=== PATIENT | male | born 1945 | race Two or more races ===

== ENCOUNTER 2018-01-17 20:04 | Inpatient (IN) | payer MEDICARE, OTHER ==
[~2018-01-17] VITALS: Ht 167.6 cm; Wt 71.7 kg
[~2018-01-17 20:04] MED LIST: ASPIR 8181 MG ORAL; ATORVASTATIN CA40 MG ORAL; CYCLOSPORINE100 MG PO; JANUVIA100 MG ORAL; PLAVIX75 MG ORAL; TAMSULOSIN HCL0.4 MG ORAL; ZETIA10 MG ORAL
[2018-01-17] MEDS ORDERED: Sodium Chloride 500ML 500 ML IV ONE (20:15)
[2018-01-17 20:25] VITALS: BP 168/90
[2018-01-17] MEDS ORDERED: LOSARTAN POTASS50 MG ORAL (20:31)
[2018-01-17] MEDS ORDERED: PREDNISONE10 MG ORAL (20:31)
[2018-01-17] MEDS ORDERED: NORCO 10-325 T1 EACH ORAL (20:31)
[2018-01-17] MEDS ORDERED: PANTOPRAZOLE SO40 MG ORAL (20:31)
[2018-01-17] MEDS ORDERED: DIABETIC TUSSI118 ML PO (20:31)
[2018-01-17] MEDS ORDERED: LANTUS SOL100 UNIT/1 SUBQ (20:31)
[2018-01-17] MEDS ORDERED: BENZONATATE100 MG ORAL (20:31)
[2018-01-17] MEDS ORDERED: MAGNESIUM250 M3 PO (20:31)
[2018-01-17] MEDS ORDERED: ISOSORBIDE MON120 M1 PO (20:31)
[2018-01-17] MEDS ORDERED: LASIX20 M1 ORAL (20:31)
[2018-01-17] MEDS ORDERED: ZETIA10 MG ORAL (20:31)
[2018-01-17] MEDS ORDERED: GABAPENTIN600 MG ORAL (20:31)
[2018-01-17] MEDS ORDERED: ALBUTEROL2.5 MG/3 M INH (20:31)
[2018-01-17] MEDS ORDERED: CYCLOSPORINE100 MG PO (20:31)
[2018-01-17] MEDS ORDERED: LINZESS145 MCG PO (20:31)
[2018-01-17] MEDS ORDERED: FLUDROCORTISON0.1 MG PO (20:31)
[2018-01-17 21:13] LABS: APPEARANCE,URINE CLEAR; BILIRUBIN, URINE NEGATIVE (NEGATIVE); COLOR,URINE PALE YELLOW; GLUCOSE, URINE (UA) 2+ (NEGATIVE); KETONES,URINE NEGATIVE (NEGATIVE); LEUKOCYTE ESTERASE ,URINE NEGATIVE (NEGATIVE); NITRITE,URINE NEGATIVE (NEGATIVE); PH,URINE 8 (4.5-8.0); PROTEIN,URINE 3+ (NEGATIVE); UROBILINOGEN,URINE NORMAL MG/DL (0.0-1.0)
[2018-01-17 21:17] LABS: BASOPHILS % (AUTO) 0.7 % (0.0-2.0); EOSINOPHILS % (AUTO) 1.6 % (0.0-3.0); HEMATOCRIT 34.9 % (42.0-52.0); HEMOGLOBIN 12.4 G/DL (14.2-18.0); LYMPHOCYTES % (AUTO) 12.7 % (20.0-45.0); MEAN CORPUSCULAR VOLUME 88 FL (80-99); MONOCYTES % (AUTO) 7.9 % (1.0-10.0); PLATELET COUNT 209 K/UL (150-450); RED BLOOD COUNT 3.99 M/UL (4.70-6.10); RED CELL DISTRIBUTION WIDTH 12.6 % (11.6-14.8); WHITE BLOOD COUNT 11.3 K/UL (4.8-10.8)
[2018-01-17 21:25] VITALS: BP 168/92
[2018-01-17 21:50] LABS: ANION GAP 6 mmol/L (5-15); BLOOD UREA NITROGEN 50 mg/dL (7-18); CALCIUM 9.5 MG/DL (8.5-10.1); CARBON DIOXIDE 31 MMOL/L (21-32); CHLORIDE 103 MMOL/L (98-107); POTASSIUM 3.8 MMOL/L (3.5-5.1); SODIUM 140 MMOL/L (136-145)
[2018-01-17 22:04] LABS: ALANINE AMINOTRANSFERASE 54 U/L (12-78); ALBUMIN 3.2 G/DL (3.4-5.0); ALBUMIN/GLOBULIN RATIO 0.8 (1.0-2.7); ALKALINE PHOSPHATASE 75 U/L (46-116); ASPARTATE AMINO TRANSFERASE 60 U/L (15-37); BILIRUBIN,TOTAL 0.5 MG/DL (0.2-1.0); CKMB 4.6 NG/ML (0.0-3.6); CREATINE KINASE 1547 U/L (26-308)
[2018-01-17 22:25] VITALS: BP 178/95
[2018-01-17] MEDS ORDERED: Benzonatate 100mg Perles ORAL PRN (22:30)
[2018-01-17] MEDS ORDERED: Morphine Sulfate 2mg/ml Inj IVP PRN (22:30)
[2018-01-17] MEDS ORDERED: Morphine Sulfate 4mg/ml Inj IVP PRN (22:30)
[2018-01-17] MEDS ORDERED: Nitroglycerin Subl 0.4mg tab SL PRN (22:30)
[2018-01-17] MEDS ORDERED: Albuterol/Ipratropium 3ml neb HHN PRN (22:30)
[2018-01-17] MEDS ORDERED: Miralax 17gm pkt ORAL PRN (22:30)
[2018-01-17] MEDS ORDERED: Acetaminophen 650 MG SUPP RECTAL PRN ×2 (22:30)
--- NOTE | 2018-01-17 22:33 | Emergency Room Report ---
History of Present Illness General Chief Complaint: Altered Level of Consciousness Source: Patient, Family Member Present Illness HPI 72-year-old male presents ED for evaluation. Daughter at bedside states that patient is more confused than usual since this morning. History of dementia. Daughter is also concerned this patient has a cough which is productive. Afebrile. Patient is also status post recent stent placement at [facility]. History of CVA. History of frequent UTI. Patient is unable to provide any additional history at this time. No other aggravating or relieving factors. Denies any other associated symptoms Allergies: Coded Allergies: AZATHIOPRINE (Verified Allergy, Unknown, 11/20/10) Patient History Past Medical History: DM, MO, CVA/TIA, dementia Past Surgical History: none Pertinent Family History: none Social History: Denies: smoking, alcohol use, drug use Immunizations: UTD Reviewed Nursing Documentation: PMH: Agreed, PSxH: Agreed Nursing Documentation-PMH Hx Cardiac Problems: Yes - CAD, 2 STENTS Hx Hypertension: Yes - MO Hx Asthma: No - BPH Hx Diabetes: Yes Review of Systems All Other Systems: limited Physical Exam Vital Signs Date Time Temp Pulse Resp B/P (MAP) Pulse Ox O2 Delivery O2 Flow Rate FiO2 01/17/18 20:12 98.0 87 18 171/91 96 Room Air 98.1 Sp02 EP Interpretation: reviewed, normal General Appearance: other - dementia Head: normocephalic Eyes: bilateral eye normal inspection, bilateral eye PERRL ENT: normal ENT inspection Neck: normal inspection Respiratory: crackles Cardiovascular #1: regular rate, rhythm, no edema Gastrointestinal: normal bowel sounds, non tender, soft, non-distended, no guarding, no rebound Rectal: deferred Genitourinary: no CVA tenderness Musculoskeletal: normal inspection Neurologic: other - dementia Psychiatric: other - dementia Skin: normal inspection Lymphatic: normal inspection Procedures Critical Care Time Critical Care Time i. I feel this is a highly complex case requiring extensive working including EKG/Rhythm strip, Xray/CT/US, Blood/urine lab work, repeat exams while in ED, and administration of strong opiates/narcotics for pain control, admission to hospital or close patient follow up. Total time: 30 min bedside evaluation and treatment excludes procedures (EKG). Reason for critical care: Elevated troponin, rhabdo, sepsis, dehydration, subacute CVA Possible complications: hypotension, hypertension, MO, shock, arrhythmias, metabolic acidosis, end organ damage, respiratory failure. Interventions: labs, IVFs, EKG, CXR, CT. abx. aspirin. IVFs Course: Patient presents with AMS. CT head shows subacute CVA frontal lobe. lactate > 2, CK > 1500, trop 0.065. no chest pain. CXR shows ? pneumonia. given IVFS. given abx. Given aspirin Consultations: nursing staff, EMS, family Performed by: Dr Townsend Tolerated well condition = serious j. because of unstable vital signs this patient had a condition that could potentially threaten life or limb. I feel this is a critical patient who required my full attention while patient was considered critical. Total Critical Care Time excluding procedures was greater than 35 minutes Medical Decision Making Diagnostic Impression: Primary Impression: CVA (cerebral vascular accident) Qualified Codes: I63.9 - Cerebral infarction, unspecified Additional Impressions: Sepsis Qualified Codes: A41.9 - Sepsis, unspecified organism Dehydration Pneumonia Qualified Codes: J18.1 - Lobar pneumonia, unspecified organism Rhabdomyolysis Qualified Codes: M62.82 - Rhabdomyolysis Elevated troponin ER Course Hospital Course 72-year-old male presents ED with increased confusion, coughing congestion Differential diagnoses include: MO/unstable angina, SVT/Vtach/AFib, CVA/TIA Clinical course Patient placed on stretcher. on campus monitor. After initial history and physical I ordered labs, EKG, chest x-ray, and CT head labs reviewed- BUN/Cr 50/2, troponins 0.065, CK > 1500, noted leukocytosis, Hb/ Hct stable, lactate > 2 Chest x-ray- RLL atelectasis/infiltrate EKg - NSR, no acute ischemic changes interpreted by me CT brain - hypodesnity in frontal lobe suggestive of subacute CVA discussed case with PMD Loy Munoz Given aspirin in ED. given IVFs. Given abx no focal neurological deficits. patietn is out of window for thrombolytic therapy Case discussed with Dr. David and he agreed to accept the patient to his service for further care and support I. I feel this is a highly complex case requiring extensive working including EKG/Rhythm strip, Xray/CT/US, Blood/urine lab work, repeat exams while in ED, and administration of strong opiates/narcotics for pain control, admission to hospital or close patient follow up. Diagnosis - CVA, sepsis, dehydration, pneumonia, rhabdo, elevated troponin admitted to telemetry in serious condition Labs Test 01/17/18 20:30 White Blood Count 11.3 K/UL (4.8-10.8) Red Blood Count 3.99 M/UL (4.70-6.10) Hemoglobin 12.4 G/DL (14.2-18.0) Hematocrit 34.9 % (42.0-52.0) Mean Corpuscular Volume 88 FL (80-99) Mean Corpuscular Hemoglobin 31.2 PG (27.0-31.0) Mean Corpuscular Hemoglobin Concent 35.6 G/DL (32.0-36.0) Red Cell Distribution Width 12.6 % (11.6-14.8) Platelet Count 209 K/UL (150-450) Mean Platelet Volume 8.0 FL (6.5-10.1) Neutrophils (%) (Auto) 77.0 % (45.0-75.0) Lymphocytes (%) (Auto) 12.7 % (20.0-45.0) Monocytes (%) (Auto) 7.9 % (1.0-10.0) Eosinophils (%) (Auto) 1.6 % (0.0-3.0) Basophils (%) (Auto) 0.7 % (0.0-2.0) Urine Color Pale yellow Urine Appearance Clear Urine pH 8 (4.5-8.0) Urine Specific [place] 1.010 (1.005-1.035) Urine Protein 3+ (NEGATIVE) Urine Glucose (UA) 2+ (NEGATIVE) Urine Ketones Negative (NEGATIVE) Urine Occult Blood 3+ (NEGATIVE) Urine Nitrite Negative (NEGATIVE) Urine Bilirubin Negative (NEGATIVE) Urine Urobilinogen Normal MG/DL (0.0-1.0) Urine Leukocyte Esterase Negative (NEGATIVE) Urine RBC 2-4 /HPF (0 - 0) Urine WBC 0-2 /HPF (0 - 0) Urine Squamous Epithelial Cells None /LPF (NONE/OCC) Urine Bacteria Few /HPF (NONE) Sodium Level 140 MMOL/L (136-145) Potassium Level 3.8 MMOL/L (3.5-5.1) Chloride Level 103 MMOL/L (98-107) Carbon Dioxide Level 31 MMOL/L (21-32) Anion Gap 6 mmol/L (5-15) Blood Urea Nitrogen 50 mg/dL (7-18) Creatinine 2.0 MG/DL (0.55-1.30) Estimat Glomerular Filtration Rate mL/min (>60) Glucose Level 197 MG/DL (74-106) Lactic Acid Level 2.30 mmol/L (0.66-2.22) Calcium Level 9.5 MG/DL (8.5-10.1) Total Bilirubin 0.5 MG/DL (0.2-1.0) Aspartate Amino Transf (AST/SGOT) 60 U/L (15-37) Alanine Aminotransferase (ALT/SGPT) 54 U/L (12-78) Alkaline Phosphatase 75 U/L (46-116) Total Creatine Kinase 1547 U/L (26-308) Creatine Kinase MB 4.6 NG/ML (0.0-3.6) Creatine Kinase MB Relative Index 0.2 Troponin I 0.065 ng/mL (0.000-0.056) Pro-B-Type Natriuretic Peptide 645 pg/mL (0-125) Total Protein 7.4 G/DL (6.4-8.2) Albumin 3.2 G/DL (3.4-5.0) Globulin 4.2 g/dL Albumin/Globulin Ratio 0.8 (1.0-2.7) EKG Diagnostic Results Rate: normal Rhythm: NSR ST Segments: no acute changes ASA given to the pt in ED: Yes Rhythm Strip Diag. Results EP Interpretation: yes Rhythm: NSR, no PVC's, no ectopy Chest X-Ray Diagnostic Results Chest X-Ray Diagnostic Results : Chest X-Ray Ordered: Yes # of Views/Limited/Complete: 1 View Indication: Shortness of Breath EP Interpretation: Yes Interpretation: no effusion, no pneumothorax, other - atelectasis R LL Impression: Other - pneumonia CT/MRI/US Diagnostic Results CT/MRI/US Diagnostic Results : Imaging Test Ordered: CT Head Impression hypodensity in frontal lobe. subacute CVA Last Vital Signs Date Time Temp Pulse Resp B/P (MAP) Pulse Ox O2 Delivery O2 Flow Rate FiO2 01/17/18 20:12 98.0 87 18 171/91 96 Room Air 98.1 Status: improved Disposition: ADMITTED INPATIENT Condition: Serious Referrals: NON PHYSICIAN (PCP) JORGE LUIS TOWNSEND M.D. Jan 17, 2018 22:33
[2018-01-17 23:25] VITALS: BP 195/110
[2018-01-18] VITALS (8 sets, daily range): BP systolic 160–192; BP diastolic 58–117
[2018-01-18] MEDS: NovoLOG Insulin Flexpen SUBQ SCH ×4 (06:54→20:50)
[2018-01-18 07:41] LABS: BASOPHILS % (AUTO) 0.6 % (0.0-2.0); EOSINOPHILS % (AUTO) 2.8 % (0.0-3.0); HEMATOCRIT 35.6 % (42.0-52.0); HEMOGLOBIN 12.7 G/DL (14.2-18.0); LYMPHOCYTES % (AUTO) 18.5 % (20.0-45.0); MEAN CORPUSCULAR VOLUME 87 FL (80-99); MONOCYTES % (AUTO) 7.9 % (1.0-10.0); NEUTROPHILS % (AUTO) 70.1 % (45.0-75.0); PLATELET COUNT 211 K/UL (150-450); RED BLOOD COUNT 4.07 M/UL (4.70-6.10); RED CELL DISTRIBUTION WIDTH 12.7 % (11.6-14.8); WHITE BLOOD COUNT 15.2 K/UL (4.8-10.8)
[2018-01-18 08:04] LABS: ANION GAP 9 mmol/L (5-15); BLOOD UREA NITROGEN 43 mg/dL (7-18); CALCIUM 9.2 MG/DL (8.5-10.1); CARBON DIOXIDE 27 MMOL/L (21-32); CHLORIDE 104 MMOL/L (98-107); CHOLESTEROL 94 MG/DL (< 200); CREATININE 1.6 MG/DL (0.55-1.30); HDL CHOLESTEROL 41 MG/DL (40-60); SODIUM 140 MMOL/L (136-145); TRIGLYCERIDES 164 MG/DL (30-150)
[2018-01-18] MEDS: Heparin 5000 units/ml inj SUBQ SCH ×2 (08:53→20:46)
[2018-01-18] MEDS: Docusate 100mg cap ORAL SCH ×2 (08:53→20:44)
[2018-01-18] MEDS: Aspirin Baby 81mg ORAL SCH (08:54)
[2018-01-18] MEDS ORDERED: cycloSPORINE 100mg cap ORAL SCH (09:00)
[2018-01-18] MEDS ORDERED: Imdur 30mg tab ORAL SCH (09:00)
--- NOTE | 2018-01-18 09:42 | Diagnostic Imaging Report ---
Indication: Shortness of breath Technique: One view of the chest Comparison: 12/23/2009 Findings: Previously demonstrated central venous catheter is no longer evident. The heart is mildly enlarged. The lungs central spaces are clear. Impression: Mild cardiomegaly No acute process
--- NOTE | 2018-01-18 09:45 | Diagnostic Imaging Report ---
Indications: Altered mental status Technique: Spiral acquisitions obtained through the brain. Angled axial and coronal 5 x 5 mm slices were reconstructed. Total dose length product 1323.13 mGycm. CTDI vol(s) 70.38 mGy. Dose reduction achieved using automated exposure control Comparison: None. Findings: There is age-related enlargement of the ventricles and extra axial CSF spaces. There is an old right frontal deep white matter infarct and a small right posterior parietal deep white matter infarct.. There is periventricular deep white matter chronic ischemic change. No acute intracranial hemorrhage or edema. No mass effect or midline shift. Otherwise normal paul-white differentiation. The sinuses are clear. There is bilateral mastoid opacification. There is evidence of prior bilateral cataract surgery Impression: Chronic and age-related changes, as described No acute intracranial bleed or mass effect Multiple old infarcts, as described Bilateral mastoid disease This agrees with the preliminary interpretation provided overnight by [facility] teleradiology service. The CT scanner at [facility] is accredited by the [employer] and the scans are performed using protocols designed to limit radiation exposure to as low as reasonably achievable to attain images of sufficient resolution adequate for diagnostic evaluation.
[2018-01-18] MEDS ORDERED: Pneumococcal Vaccine 25mcg/0.5ml IM ONE (10:00)
--- NOTE | 2018-01-18 10:06 | History and Physical ---
History of Present Illness General Date patient seen: Jan 18, 2018 Time patient seen: 10:05 Reason for Hospitalization: Acute encephalopathy, Pneumonia, MALGORZATA Present Illness HPI 72y/o male with pmh of ESRD s/p kidney transplant ~30 years ago, CVA w/ residual L sided weakness, HTN, IDDM type 2, CAD s/p PCI (stents placed ~2-3 weeks ago) who presents with AMS. noted pt to be altered yesterday morning. Per son pt is usual alert and oriented but family noted pt to be increasingly disoriented. He has been taking his medications. C/o cough and congestion x few days. Denies chest pain, f/c, n/v, SOB, abd pain. In ED, pt had CT head which showed old stroke but no new abnormality. Labs showed leukocytosis to 11.3K, MALGORZATA w/ SCr 2.0. CXR w/ concern for pneumonia. Pt given IVFs, levaquin. Allergies: Coded Allergies: AZATHIOPRINE (Verified Allergy, Unknown, 11/20/10) Medication History Scheduled Aspirin* (Aspir 81*), 81 MG ORAL DAILY, (Reported) Atorvastatin Calcium* (Atorvastatin Calcium*), 40 MG ORAL BEDTIME, (Reported) Clopidogrel Bisulfate* (Plavix*), 75 MG ORAL DAILY, (Reported) Cyclosporine* (Cyclosporine*), 100 MG PO BID, (Reported) Ezetimibe (Zetia*), 10 MG ORAL BEDTIME, (Reported) Ezetimibe (Zetia*), 10 MG ORAL BEDTIME, (Reported) Furosemide* (Lasix*), 20 MG ORAL DAILY, (Reported) Insulin Glargine (Lantus), 0 SUBQ BEDTIME, (Reported) Losartan Potassium* (Losartan Potassium*), 50 MG ORAL DAILY, (Reported) Pantoprazole* (Pantoprazole*), 40 MG ORAL DAILY, (Reported) Prednisone* (Prednisone*), 5 MG ORAL DAILY, (Reported) Sitagliptin (Januvia), 100 MG ORAL DAILY, (Reported) Tamsulosin Hcl (Tamsulosin Hcl*), 0.4 MG ORAL BEDTIME, (Reported) Scheduled PRN Albuterol Sulfate* (Albuterol Sulfate Hhn*), Unknown Dose INH Q4H PRN for Shortness of Breath, (Reported) Hydrocodone Bit/Acetaminophen 10-325* ([place] 10-325*), 1 TAB ORAL Q4H PRN for For Pain, (Reported) Miscellaneous Medications Benzonatate* (Benzonatate*), 100 MG ORAL, (Reported) Cyclosporine* (Cyclosporine*), 100 MG PO, (Reported) Fludrocortisone Acetate (Fludrocortisone Acetate), 0.1 MG PO, (Reported) Gabapentin* (Gabapentin*), 600 MG ORAL, (Reported) Guaifenesin/Dextromethorphan (Diabetic Tussin Dm Liquid), Unknown Dose PO, ( Reported) Isosorbide Mononitrate (Isosorbide Mononitrate Er), 120 MG PO, (Reported) Linaclotide (Linzess), 145 MCG PO, (Reported) Magnesium (Magnesium), 500 MG PO, (Reported) Patient History History Provided By: Patient, Family Member, Medical Record, PMD Healthcare decision maker N Resuscitation status Full Code Advanced Directive on File Past Medical/Surgical History Past Medical/Surgical History: (1) ESRD s/p kidney transplant (2) HTN (3) DM2 (diabetes mellitus, type 2) (4) Diabetic neuropathy (5) H/O: CVA (cerebrovascular accident) (6) CAD s/p PCI Family History Family History: Patient reports no known family medical history. Social History Social History: (1) Lives with family Review of Systems Constitutional: Reports: malaise, weakness Eye: Reports: no symptoms Respiratory: Reports: cough, sputum Cardiovascular: Reports: no symptoms Gastrointestinal: Reports: no symptoms Genitourinary: Reports: no symptoms Musculoskeletal: Reports: no symptoms Skin: Reports: no symptoms Psychiatric: Reports: no symptoms Neurological: Reports: no symptoms Endocrine: Reports: no symptoms Hematologic/Lymphatic: Reports: no symptoms Physical Exam Physical Exam Narrative General: alert, cooperative, no distress, appears stated age, A&Ox2 Head: normocephalic, without obvious abnormality, atraumatic Eyes: conjunctivae/corneas clear. PERRL, EOM's intact Throat: lips, mucosa, and tongue normal. MMM Neck: supple, symmetrical, trachea midline, and no JVD Lungs: clear to auscultation bilaterally Heart: regular rate and rhythm, S1, S2 normal, no murmur, click, rub or gallop Abdomen: soft, non-tender, non-distended, bowel sounds normal Extremities: extremities normal, atraumatic, no cyanosis or edema Pulses: 2+ and symmetric Skin: skin color, texture, turgor normal; no rashes or lesions Last 24 Hour Vital Signs Date Time Temp Pulse Resp B/P (MAP) Pulse Ox O2 Delivery O2 Flow Rate FiO2 01/18/18 08:55 167/101 01/18/18 08:00 97.7 78 20 167/101 92 Room Air 01/18/18 04:00 96.6 64 18 160/74 94 Room Air 01/18/18 04:00 77 01/18/18 01:15 96.9 75 17 185/112 97 Room Air 01/18/18 01:05 98.1 76 17 162/58 100 Room Air 98.1 01/18/18 01:00 98.1 76 17 162/58 100 Room Air 98.1 01/18/18 00:25 98.1 72 16 178/92 100 Room Air 98.1 01/17/18 23:25 98.4 80 16 195/110 98 Room Air 98.4 01/17/18 22:25 98.2 76 18 178/95 100 Room Air 98.2 01/17/18 21:25 98.1 74 18 168/92 99 Room Air 98.1 01/17/18 20:25 98.1 78 18 168/90 98 Room Air 98.1 01/17/18 20:12 98.0 87 18 171/91 96 Room Air 98.1 Intake and Output 01/17/18 01/18/18 19:00 07:00 Intake Total 800 ml Output Total 2220 ml Balance -1420 ml Intake Oral 800 ml Output Urine Total 2220 ml # Voids 1 Laboratory Tests Test 01/17/18 20:30 01/17/18 23:30 01/18/18 06:10 White Blood Count 11.3 K/UL (4.8-10.8) H 15.2 K/UL (4.8-10.8) H Red Blood Count 3.99 M/UL (4.70-6.10) L 4.07 M/UL (4.70-6.10) L Hemoglobin 12.4 G/DL (14.2-18.0) L 12.7 G/DL (14.2-18.0) L Hematocrit 34.9 % (42.0-52.0) L 35.6 % (42.0-52.0) L Mean Corpuscular Volume 88 FL (80-99) 87 FL (80-99) Mean Corpuscular Hemoglobin 31.2 PG (27.0-31.0) H 31.2 PG (27.0-31.0) H Mean Corpuscular Hemoglobin Concent 35.6 G/DL (32.0-36.0) 35.7 G/DL (32.0-36.0) Red Cell Distribution Width 12.6 % (11.6-14.8) 12.7 % (11.6-14.8) Platelet Count 209 K/UL (150-450) 211 K/UL (150-450) Mean Platelet Volume 8.0 FL (6.5-10.1) 8.2 FL (6.5-10.1) Neutrophils (%) (Auto) 77.0 % (45.0-75.0) H 70.1 % (45.0-75.0) Lymphocytes (%) (Auto) 12.7 % (20.0-45.0) L 18.5 % (20.0-45.0) L Monocytes (%) (Auto) 7.9 % (1.0-10.0) 7.9 % (1.0-10.0) Eosinophils (%) (Auto) 1.6 % (0.0-3.0) 2.8 % (0.0-3.0) Basophils (%) (Auto) 0.7 % (0.0-2.0) 0.6 % (0.0-2.0) Urine Color Pale yellow Urine Appearance Clear Urine pH 8 (4.5-8.0) Urine Specific [place] 1.010 (1.005-1.035) Urine Protein 3+ (NEGATIVE) H Urine Glucose (UA) 2+ (NEGATIVE) H Urine Ketones Negative (NEGATIVE) Urine Occult Blood 3+ (NEGATIVE) H Urine Nitrite Negative (NEGATIVE) Urine Bilirubin Negative (NEGATIVE) Urine Urobilinogen Normal MG/DL (0.0-1.0) Urine Leukocyte Esterase Negative (NEGATIVE) Urine RBC 2-4 /HPF (0 - 0) H Urine WBC 0-2 /HPF (0 - 0) Urine Squamous Epithelial Cells None /LPF (NONE/OCC) Urine Bacteria Few /HPF (NONE) Sodium Level 140 MMOL/L (136-145) 140 MMOL/L (136-145) Potassium Level 3.8 MMOL/L (3.5-5.1) 3.0 MMOL/L (3.5-5.1) L Chloride Level 103 MMOL/L (98-107) 104 MMOL/L (98-107) Carbon Dioxide Level 31 MMOL/L (21-32) 27 MMOL/L (21-32) Anion Gap 6 mmol/L (5-15) 9 mmol/L (5-15) Blood Urea Nitrogen 50 mg/dL (7-18) H 43 mg/dL (7-18) H Creatinine 2.0 MG/DL (0.55-1.30) H 1.6 MG/DL (0.55-1.30) H Estimat Glomerular Filtration Rate mL/min (>60) mL/min (>60) Glucose Level 197 MG/DL (74-106) H 122 MG/DL (74-106) H Lactic Acid Level 2.30 mmol/L (0.66-2.22) H 1.60 mmol/L (0.66-2.22) 1.40 mmol/L (0.66-2.22) Calcium Level 9.5 MG/DL (8.5-10.1) 9.2 MG/DL (8.5-10.1) Total Bilirubin 0.5 MG/DL (0.2-1.0) Aspartate Amino Transf (AST/SGOT) 60 U/L (15-37) H Alanine Aminotransferase (ALT/SGPT) 54 U/L (12-78) Alkaline Phosphatase 75 U/L (46-116) Total Creatine Kinase 1547 U/L (26-308) H Creatine Kinase MB 4.6 NG/ML (0.0-3.6) H Creatine Kinase MB Relative Index 0.2 Troponin I 0.065 ng/mL (0.000-0.056) 0.073 ng/mL (0.000-0.056) Pro-B-Type Natriuretic Peptide 645 pg/mL (0-125) H Total Protein 7.4 G/DL (6.4-8.2) Albumin 3.2 G/DL (3.4-5.0) L Globulin 4.2 g/dL Albumin/Globulin Ratio 0.8 (1.0-2.7) L Hemoglobin A1c 9.0 % (4.3-6.0) H Phosphorus Level 2.2 MG/DL (2.5-4.9) L Magnesium Level 1.4 MG/DL (1.8-2.4) L Triglycerides Level 164 MG/DL (30-150) H Cholesterol Level 94 MG/DL (< 200) LDL Cholesterol 33 mg/dL (<100) HDL Cholesterol 41 MG/DL (40-60) Cholesterol/HDL Ratio 2.3 (3.3-4.4) L Thyroid Stimulating Hormone (TSH) 1.410 uiU/mL (0.358-3.740) Microbiology Date/Time Source Procedure Growth Status 01/17/18 20:30 Nasal Nares Influenza Types A,B Antigen (SUKHJINDER) - Final Complete Height (Feet): 5 Height (Inches): 6.00 Weight (Pounds): 158 Medications Current Medications Medications (Trade) Dose Ordered Sig/Lauren Route PRN Reason Start Time Stop Time Status Last Admin Dose Admin Acetaminophen (Tylenol) 650 mg Q4H PRN ORAL Mild Pain (Pain Scale 1-3) 01/17/18 22:30 02/16/18 22:29 Acetaminophen (Tylenol) 650 mg Q4H PRN ORAL fever 01/17/18 22:30 02/16/18 22:29 Acetaminophen (Tylenol) 650 mg Q4H PRN RECTAL Mild Pain (Pain Scale 1-3) 01/17/18 22:30 02/16/18 22:29 Acetaminophen (Tylenol) 650 mg Q4H PRN RECTAL fever 01/17/18 22:30 02/16/18 22:29 Albuterol/ Ipratropium (Albuterol/ Ipratropium) 3 ml Q4H PRN HHN Shortness of Breath 01/17/18 22:30 01/22/18 22:29 Aspirin (ASA) 81 mg DAILY ORAL 01/18/18 09:00 02/17/18 08:59 01/18/18 08:54 Benzonatate (Tessalon Perles) 100 mg TID PRN ORAL cough 01/17/18 22:30 02/16/18 22:29 01/18/18 08:53 Bisacodyl (Dulcolax) 10 mg DAILYPRN PRN RECTAL Constipation 01/17/18 22:30 02/16/18 22:29 Cyclosporine (SandIMMUNE) 100 mg BID ORAL 01/18/18 09:00 02/17/18 08:59 Dextrose (Dextrose 50%) STAT PRN IV Hypoglycemia 01/17/18 22:45 02/16/18 22:44 Diphenhydramine HCl (Benadryl) 25 mg Q6H PRN ORAL Itching/Pruritis 01/17/18 22:30 02/16/18 22:29 Docusate Sodium (Colace) 100 mg EVERY 12 HOURS ORAL 01/18/18 09:00 02/17/18 08:59 01/18/18 08:53 EZETIMIBE (Zetia) 10 mg BEDTIME ORAL 01/18/18 21:00 02/17/18 20:59 Fludrocortisone Acetate (Florinef) 0.1 mg DAILY ORAL 01/18/18 09:00 02/17/18 08:59 01/18/18 08:53 Heparin Sodium (Porcine) (Heparin 5000 units/ml) 5,000 units EVERY 12 HOURS SUBQ 01/18/18 09:00 02/17/18 08:59 01/18/18 08:53 Insulin Aspart (NovoLOG) BEFORE MEALS AND HS SUBQ 01/18/18 06:30 02/17/18 06:29 01/18/18 06:54 Isosorbide Mononitrate (Imdur) 120 mg DAILY ORAL 01/18/18 09:00 02/17/18 08:59 01/18/18 08:55 Levofloxacin 150 ml @ 100 mls/hr Q48H IVPB 01/19/18 18:00 01/26/18 17:59 Magnesium Sulfate 100 ml @ 100 mls/hr Q1H IVPB 01/18/18 10:15 01/18/18 12:14 UNV Morphine Sulfate (Morphine Sulfate) 2 mg Q4H PRN IVP Moderate Pain (Pain Scale 4-6) 01/17/18 22:30 01/24/18 22:29 Morphine Sulfate (Morphine Sulfate) 4 mg Q4H PRN IVP Severe Pain (Pain Scale 7-10) 01/17/18 22:30 01/24/18 22:29 Nitroglycerin (Ntg) 0.4 mg Q5M PRN SL Prn Chest Pain 01/17/18 22:30 02/16/18 22:29 Non-Formulary Medication (Non-Formulary Med) 1 ea BID ORAL 01/18/18 09:00 02/17/18 08:59 UNV Ondansetron HCl (Zofran) 4 mg Q6H PRN IVP Nausea & Vomiting 01/17/18 22:30 02/16/18 22:29 Pantoprazole (Protonix) 40 mg DAILY ORAL 01/18/18 09:00 02/17/18 08:59 01/18/18 08:53 Polyethylene Glycol (Miralax) 17 gm DAILYPRN PRN ORAL Constipation 01/17/18 22:30 02/16/18 22:29 Potassium Chloride (K-Dur) 40 meq ONCE ONCE ORAL 01/18/18 10:15 01/18/18 10:16 UNV Prednisone (predniSONE) 5 mg DAILY ORAL 01/18/18 09:00 02/17/18 08:59 01/18/18 08:54 Sitagliptin Phosphate (Januvia) 100 mg DAILY ORAL 01/18/18 09:00 02/17/18 08:59 01/18/18 08:54 Tamsulosin HCl (Flomax) 0.4 mg BEDTIME ORAL 01/18/18 21:00 02/17/18 20:59 Assessment/Plan Problem List: (1) Sepsis ICD Codes: A41.9 - Sepsis, unspecified organism SNOMED: 93017553 Qualifiers: Qualified Codes: A41.9 - Sepsis, unspecified organism (2) Lactic acid acidosis ICD Codes: E87.2 - Acidosis SNOMED: 70841138 (3) Toxic metabolic encephalopathy ICD Codes: G92 - Toxic encephalopathy SNOMED: 592755337 (4) HCAP (healthcare-associated pneumonia) ICD Codes: J18.9 - Pneumonia, unspecified organism SNOMED: 459311901 (5) NSTEMI (non-ST elevated myocardial infarction) ICD Codes: I21.4 - Non-ST elevation (NSTEMI) myocardial infarction SNOMED: 120942813 (6) MALGORZATA (acute kidney injury) ICD Codes: N17.9 - Acute kidney failure, unspecified SNOMED: 99085329 (7) Anemia of chronic disease ICD Codes: D63.8 - Anemia in other chronic diseases classified elsewhere SNOMED: 719682487 (8) ESRD s/p kidney transplant (9) CAD s/p PCI (10) H/O: CVA (cerebrovascular accident) ICD Codes: Z86.73 - Personal history of transient ischemic attack (TIA), and cerebral infarction without residual deficits SNOMED: 055348448 (11) HTN (12) DM2 (diabetes mellitus, type 2) ICD Codes: E11.9 - Type 2 diabetes mellitus without complications SNOMED: 48135508 (13) Diabetic neuropathy ICD Codes: E11.40 - Type 2 diabetes mellitus with diabetic neuropathy, unspecified SNOMED: 28566414, 122070500, 435816006 Status: stable Assessment/Plan Admit to tele Neuro consulted Neuro checks q4h CT brain reviewed Will check MRI brain Check B12/folate, TSH, Vit D Renal consulted IVFs Trend BMP closely Strict I/O's Replete lytes ID consulted Empiric levaquin (01/17-) F/u cultures Cardiology consulted Trend trop/EKG Check TTE Check lipid panel, A1C, TSH ASA, ticagrelor, statin, BP meds Hold lasix, losartan given MALGORZATA HUONG PT/OT DVT Prophylaxis: SCD, HSQ Code Status: Full Hospital Classification Declaration: Based on this initial evaluation, and depending on the patient's clinical course, I anticipate that this patient will require hospitalization for 2-3 days for sepsis, PNA, MALGORZATA, NSTEMI and close respiratory/hemodynamic monitoring. Disposition: Once the patient is stable to leave the hospital, I anticipate the patient will likely be discharged to the following environment: home with HH vs SNF I spent 75 minutes on this patient's case, and >50% was dedicated to counseling and/or care coordination. Discussed with patient/family, nursing staff, SW/CM, neuro, renal, ID, cardiology regarding clinical status, treatment course, and disposition planning. Time of note may not reflect time of encounter. Mery Gaston M.D. Jan 18, 2018 10:06
--- NOTE | 2018-01-18 12:04 | Infectious Diseases Prog Note ---
Assessment/Plan Assessment/Plan Full consult dictated: A) 1) possible cap, uri/bronchitis, initial chest x-ray with nad, influenza screen negative 2) leukocytosis, ? occult sepsis 3) renal transplant, dm, htn, cad, stent P) 1) levofloxacin 2) check f/u chest x-ray, labs, check blood cultures 3) d/w Dr. Ordonez 4) thank you Subjective Allergies: Coded Allergies: AZATHIOPRINE (Verified Allergy, Unknown, 11/20/10) Objective Vital Signs Last 24 Hour Vital Signs Date Time Temp Pulse Resp B/P (MAP) Pulse Ox O2 Delivery O2 Flow Rate FiO2 01/18/18 08:55 167/101 01/18/18 08:30 87 20 Room Air 01/18/18 08:00 97.7 78 20 167/101 92 Room Air 01/18/18 08:00 92 01/18/18 04:00 96.6 64 18 160/74 94 Room Air 01/18/18 04:00 77 01/18/18 01:15 96.9 75 17 185/112 97 Room Air 01/18/18 01:05 98.1 76 17 162/58 100 Room Air 98.1 01/18/18 01:00 98.1 76 17 162/58 100 Room Air 98.1 01/18/18 00:25 98.1 72 16 178/92 100 Room Air 98.1 01/17/18 23:25 98.4 80 16 195/110 98 Room Air 98.4 01/17/18 22:25 98.2 76 18 178/95 100 Room Air 98.2 01/17/18 21:25 98.1 74 18 168/92 99 Room Air 98.1 01/17/18 20:25 98.1 78 18 168/90 98 Room Air 98.1 01/17/18 20:12 98.0 87 18 171/91 96 Room Air 98.1 Height (Feet): 5 Height (Inches): 6.00 Weight (Pounds): 158 Microbiology Date/Time Source Procedure Growth Status 01/17/18 20:30 Nasal Nares Influenza Types A,B Antigen (SUKHJINDER) - Final Complete Laboratory Tests Test 01/17/18 20:30 01/17/18 23:30 01/18/18 06:10 White Blood Count 11.3 K/UL (4.8-10.8) H 15.2 K/UL (4.8-10.8) H Red Blood Count 3.99 M/UL (4.70-6.10) L 4.07 M/UL (4.70-6.10) L Hemoglobin 12.4 G/DL (14.2-18.0) L 12.7 G/DL (14.2-18.0) L Hematocrit 34.9 % (42.0-52.0) L 35.6 % (42.0-52.0) L Mean Corpuscular Volume 88 FL (80-99) 87 FL (80-99) Mean Corpuscular Hemoglobin 31.2 PG (27.0-31.0) H 31.2 PG (27.0-31.0) H Mean Corpuscular Hemoglobin Concent 35.6 G/DL (32.0-36.0) 35.7 G/DL (32.0-36.0) Red Cell Distribution Width 12.6 % (11.6-14.8) 12.7 % (11.6-14.8) Platelet Count 209 K/UL (150-450) 211 K/UL (150-450) Mean Platelet Volume 8.0 FL (6.5-10.1) 8.2 FL (6.5-10.1) Neutrophils (%) (Auto) 77.0 % (45.0-75.0) H 70.1 % (45.0-75.0) Lymphocytes (%) (Auto) 12.7 % (20.0-45.0) L 18.5 % (20.0-45.0) L Monocytes (%) (Auto) 7.9 % (1.0-10.0) 7.9 % (1.0-10.0) Eosinophils (%) (Auto) 1.6 % (0.0-3.0) 2.8 % (0.0-3.0) Basophils (%) (Auto) 0.7 % (0.0-2.0) 0.6 % (0.0-2.0) Urine Color Pale yellow Urine Appearance Clear Urine pH 8 (4.5-8.0) Urine Specific [place] 1.010 (1.005-1.035) Urine Protein 3+ (NEGATIVE) H Urine Glucose (UA) 2+ (NEGATIVE) H Urine Ketones Negative (NEGATIVE) Urine Occult Blood 3+ (NEGATIVE) H Urine Nitrite Negative (NEGATIVE) Urine Bilirubin Negative (NEGATIVE) Urine Urobilinogen Normal MG/DL (0.0-1.0) Urine Leukocyte Esterase Negative (NEGATIVE) Urine RBC 2-4 /HPF (0 - 0) H Urine WBC 0-2 /HPF (0 - 0) Urine Squamous Epithelial Cells None /LPF (NONE/OCC) Urine Bacteria Few /HPF (NONE) Sodium Level 140 MMOL/L (136-145) 140 MMOL/L (136-145) Potassium Level 3.8 MMOL/L (3.5-5.1) 3.0 MMOL/L (3.5-5.1) L Chloride Level 103 MMOL/L (98-107) 104 MMOL/L (98-107) Carbon Dioxide Level 31 MMOL/L (21-32) 27 MMOL/L (21-32) Anion Gap 6 mmol/L (5-15) 9 mmol/L (5-15) Blood Urea Nitrogen 50 mg/dL (7-18) H 43 mg/dL (7-18) H Creatinine 2.0 MG/DL (0.55-1.30) H 1.6 MG/DL (0.55-1.30) H Estimat Glomerular Filtration Rate mL/min (>60) mL/min (>60) Glucose Level 197 MG/DL (74-106) H 122 MG/DL (74-106) H Lactic Acid Level 2.30 mmol/L (0.66-2.22) H 1.60 mmol/L (0.66-2.22) 1.40 mmol/L (0.66-2.22) Calcium Level 9.5 MG/DL (8.5-10.1) 9.2 MG/DL (8.5-10.1) Total Bilirubin 0.5 MG/DL (0.2-1.0) Aspartate Amino Transf (AST/SGOT) 60 U/L (15-37) H Alanine Aminotransferase (ALT/SGPT) 54 U/L (12-78) Alkaline Phosphatase 75 U/L (46-116) Total Creatine Kinase 1547 U/L (26-308) H Creatine Kinase MB 4.6 NG/ML (0.0-3.6) H Creatine Kinase MB Relative Index 0.2 Troponin I 0.065 ng/mL (0.000-0.056) 0.073 ng/mL (0.000-0.056) Pro-B-Type Natriuretic Peptide 645 pg/mL (0-125) H Total Protein 7.4 G/DL (6.4-8.2) Albumin 3.2 G/DL (3.4-5.0) L Globulin 4.2 g/dL Albumin/Globulin Ratio 0.8 (1.0-2.7) L Hemoglobin A1c 9.0 % (4.3-6.0) H Phosphorus Level 2.2 MG/DL (2.5-4.9) L Magnesium Level 1.4 MG/DL (1.8-2.4) L Triglycerides Level 164 MG/DL (30-150) H Cholesterol Level 94 MG/DL (< 200) LDL Cholesterol 33 mg/dL (<100) HDL Cholesterol 41 MG/DL (40-60) Cholesterol/HDL Ratio 2.3 (3.3-4.4) L Thyroid Stimulating Hormone (TSH) 1.410 uiU/mL (0.358-3.740) Current Medications Medications (Trade) Dose Ordered Sig/Lauren Route PRN Reason Start Time Stop Time Status Last Admin Dose Admin Acetaminophen (Tylenol) 650 mg Q4H PRN ORAL Mild Pain (Pain Scale 1-3) 01/17/18 22:30 02/16/18 22:29 Acetaminophen (Tylenol) 650 mg Q4H PRN ORAL fever 01/17/18 22:30 02/16/18 22:29 Acetaminophen (Tylenol) 650 mg Q4H PRN RECTAL Mild Pain (Pain Scale 1-3) 01/17/18 22:30 02/16/18 22:29 Acetaminophen (Tylenol) 650 mg Q4H PRN RECTAL fever 01/17/18 22:30 02/16/18 22:29 Albuterol/ Ipratropium (Albuterol/ Ipratropium) 3 ml Q4H PRN HHN Shortness of Breath 01/17/18 22:30 01/22/18 22:29 Aspirin (ASA) 81 mg DAILY ORAL 01/18/18 09:00 02/17/18 08:59 01/18/18 08:54 Benzonatate (Tessalon Perles) 100 mg TID PRN ORAL cough 01/17/18 22:30 02/16/18 22:29 01/18/18 08:53 Bisacodyl (Dulcolax) 10 mg DAILYPRN PRN RECTAL Constipation 01/17/18 22:30 02/16/18 22:29 Cyclosporine (SandIMMUNE) 100 mg BID ORAL 01/18/18 09:00 02/17/18 08:59 Dextrose (Dextrose 50%) STAT PRN IV Hypoglycemia 01/17/18 22:45 02/16/18 22:44 Diphenhydramine HCl (Benadryl) 25 mg Q6H PRN ORAL Itching/Pruritis 01/17/18 22:30 02/16/18 22:29 Docusate Sodium (Colace) 100 mg EVERY 12 HOURS ORAL 01/18/18 09:00 02/17/18 08:59 01/18/18 08:53 EZETIMIBE (Zetia) 10 mg BEDTIME ORAL 01/18/18 21:00 02/17/18 20:59 Fludrocortisone Acetate (Florinef) 0.1 mg DAILY ORAL 01/18/18 09:00 02/17/18 08:59 01/18/18 08:53 Heparin Sodium (Porcine) (Heparin 5000 units/ml) 5,000 units EVERY 12 HOURS SUBQ 01/18/18 09:00 02/17/18 08:59 01/18/18 08:53 Insulin Aspart (NovoLOG) BEFORE MEALS AND HS SUBQ 01/18/18 06:30 02/17/18 06:29 01/18/18 06:54 Isosorbide Mononitrate (Imdur) 120 mg DAILY ORAL 01/18/18 09:00 02/17/18 08:59 01/18/18 08:55 Levofloxacin 150 ml @ 100 mls/hr Q48H IVPB 01/19/18 18:00 01/26/18 17:59 Magnesium Sulfate 100 ml @ 100 mls/hr Q1H IVPB 01/18/18 10:15 01/18/18 12:14 Morphine Sulfate (Morphine Sulfate) 2 mg Q4H PRN IVP Moderate Pain (Pain Scale 4-6) 01/17/18 22:30 01/24/18 22:29 Morphine Sulfate (Morphine Sulfate) 4 mg Q4H PRN IVP Severe Pain (Pain Scale 7-10) 01/17/18 22:30 01/24/18 22:29 Nitroglycerin (Ntg) 0.4 mg Q5M PRN SL Prn Chest Pain 01/17/18 22:30 02/16/18 22:29 Ondansetron HCl (Zofran) 4 mg Q6H PRN IVP Nausea & Vomiting 01/17/18 22:30 02/16/18 22:29 Pantoprazole (Protonix) 40 mg DAILY ORAL 01/18/18 09:00 02/17/18 08:59 01/18/18 08:53 Patient Own Medication (Patient's Own Med) 1 ea Q12HR ORAL 01/18/18 12:00 02/17/18 11:59 Polyethylene Glycol (Miralax) 17 gm DAILYPRN PRN ORAL Constipation 01/17/18 22:30 02/16/18 22:29 Prednisone (predniSONE) 5 mg DAILY ORAL 01/18/18 09:00 02/17/18 08:59 01/18/18 08:54 Sitagliptin Phosphate (Januvia) 100 mg DAILY ORAL 01/18/18 09:00 02/17/18 08:59 01/18/18 08:54 Tamsulosin HCl (Flomax) 0.4 mg BEDTIME ORAL 01/18/18 21:00 02/17/18 20:59 MONICA BERRY Jan 18, 2018 12:04
--- NOTE | 2018-01-18 12:37 | Cardiac Electrophysiology PN ---
Subjective Subjective Cardiology consult dictated. [id number] Objective Last 24 Hour Vital Signs Date Time Temp Pulse Resp B/P (MAP) Pulse Ox O2 Delivery O2 Flow Rate FiO2 01/18/18 08:55 167/101 01/18/18 08:30 87 20 Room Air 01/18/18 08:00 97.7 78 20 167/101 92 Room Air 01/18/18 08:00 92 01/18/18 04:00 96.6 64 18 160/74 94 Room Air 01/18/18 04:00 77 01/18/18 01:15 96.9 75 17 185/112 97 Room Air 01/18/18 01:05 98.1 76 17 162/58 100 Room Air 98.1 01/18/18 01:00 98.1 76 17 162/58 100 Room Air 98.1 01/18/18 00:25 98.1 72 16 178/92 100 Room Air 98.1 01/17/18 23:25 98.4 80 16 195/110 98 Room Air 98.4 01/17/18 22:25 98.2 76 18 178/95 100 Room Air 98.2 01/17/18 21:25 98.1 74 18 168/92 99 Room Air 98.1 01/17/18 20:25 98.1 78 18 168/90 98 Room Air 98.1 01/17/18 20:12 98.0 87 18 171/91 96 Room Air 98.1 Intake and Output 01/17/18 01/18/18 19:00 07:00 Intake Total 800 ml Output Total 2220 ml Balance -1420 ml Intake Oral 800 ml Output Urine Total 2220 ml # Voids 1 Laboratory Tests Test 01/17/18 20:30 01/17/18 23:30 01/18/18 06:10 White Blood Count 11.3 K/UL (4.8-10.8) H 15.2 K/UL (4.8-10.8) H Red Blood Count 3.99 M/UL (4.70-6.10) L 4.07 M/UL (4.70-6.10) L Hemoglobin 12.4 G/DL (14.2-18.0) L 12.7 G/DL (14.2-18.0) L Hematocrit 34.9 % (42.0-52.0) L 35.6 % (42.0-52.0) L Mean Corpuscular Volume 88 FL (80-99) 87 FL (80-99) Mean Corpuscular Hemoglobin 31.2 PG (27.0-31.0) H 31.2 PG (27.0-31.0) H Mean Corpuscular Hemoglobin Concent 35.6 G/DL (32.0-36.0) 35.7 G/DL (32.0-36.0) Red Cell Distribution Width 12.6 % (11.6-14.8) 12.7 % (11.6-14.8) Platelet Count 209 K/UL (150-450) 211 K/UL (150-450) Mean Platelet Volume 8.0 FL (6.5-10.1) 8.2 FL (6.5-10.1) Neutrophils (%) (Auto) 77.0 % (45.0-75.0) H 70.1 % (45.0-75.0) Lymphocytes (%) (Auto) 12.7 % (20.0-45.0) L 18.5 % (20.0-45.0) L Monocytes (%) (Auto) 7.9 % (1.0-10.0) 7.9 % (1.0-10.0) Eosinophils (%) (Auto) 1.6 % (0.0-3.0) 2.8 % (0.0-3.0) Basophils (%) (Auto) 0.7 % (0.0-2.0) 0.6 % (0.0-2.0) Urine Color Pale yellow Urine Appearance Clear Urine pH 8 (4.5-8.0) Urine Specific [place] 1.010 (1.005-1.035) Urine Protein 3+ (NEGATIVE) H Urine Glucose (UA) 2+ (NEGATIVE) H Urine Ketones Negative (NEGATIVE) Urine Occult Blood 3+ (NEGATIVE) H Urine Nitrite Negative (NEGATIVE) Urine Bilirubin Negative (NEGATIVE) Urine Urobilinogen Normal MG/DL (0.0-1.0) Urine Leukocyte Esterase Negative (NEGATIVE) Urine RBC 2-4 /HPF (0 - 0) H Urine WBC 0-2 /HPF (0 - 0) Urine Squamous Epithelial Cells None /LPF (NONE/OCC) Urine Bacteria Few /HPF (NONE) Sodium Level 140 MMOL/L (136-145) 140 MMOL/L (136-145) Potassium Level 3.8 MMOL/L (3.5-5.1) 3.0 MMOL/L (3.5-5.1) L Chloride Level 103 MMOL/L (98-107) 104 MMOL/L (98-107) Carbon Dioxide Level 31 MMOL/L (21-32) 27 MMOL/L (21-32) Anion Gap 6 mmol/L (5-15) 9 mmol/L (5-15) Blood Urea Nitrogen 50 mg/dL (7-18) H 43 mg/dL (7-18) H Creatinine 2.0 MG/DL (0.55-1.30) H 1.6 MG/DL (0.55-1.30) H Estimat Glomerular Filtration Rate mL/min (>60) mL/min (>60) Glucose Level 197 MG/DL (74-106) H 122 MG/DL (74-106) H Lactic Acid Level 2.30 mmol/L (0.66-2.22) H 1.60 mmol/L (0.66-2.22) 1.40 mmol/L (0.66-2.22) Calcium Level 9.5 MG/DL (8.5-10.1) 9.2 MG/DL (8.5-10.1) Total Bilirubin 0.5 MG/DL (0.2-1.0) Aspartate Amino Transf (AST/SGOT) 60 U/L (15-37) H Alanine Aminotransferase (ALT/SGPT) 54 U/L (12-78) Alkaline Phosphatase 75 U/L (46-116) Total Creatine Kinase 1547 U/L (26-308) H Creatine Kinase MB 4.6 NG/ML (0.0-3.6) H Creatine Kinase MB Relative Index 0.2 Troponin I 0.065 ng/mL (0.000-0.056) 0.073 ng/mL (0.000-0.056) Pro-B-Type Natriuretic Peptide 645 pg/mL (0-125) H Total Protein 7.4 G/DL (6.4-8.2) Albumin 3.2 G/DL (3.4-5.0) L Globulin 4.2 g/dL Albumin/Globulin Ratio 0.8 (1.0-2.7) L Hemoglobin A1c 9.0 % (4.3-6.0) H Phosphorus Level 2.2 MG/DL (2.5-4.9) L Magnesium Level 1.4 MG/DL (1.8-2.4) L Triglycerides Level 164 MG/DL (30-150) H Cholesterol Level 94 MG/DL (< 200) LDL Cholesterol 33 mg/dL (<100) HDL Cholesterol 41 MG/DL (40-60) Cholesterol/HDL Ratio 2.3 (3.3-4.4) L Thyroid Stimulating Hormone (TSH) 1.410 uiU/mL (0.358-3.740) Microbiology Date/Time Source Procedure Growth Status 01/17/18 20:30 Nasal Nares Influenza Types A,B Antigen (SUKHJINDER) - Final Complete SITA SERNA Jan 18, 2018 12:37
[2018-01-18] MEDS: BRILINTA 90 MG ORAL SCH ×2 (12:53→20:44)
--- NOTE | 2018-01-18 14:35 | Diagnostic Imaging Report ---
Indication: Altered mental status Technique: sagittal T1 fast spin echo, axial T1 FLAIR, axial T2 FLAIR, axial T2 FS PROPELLER, axial T2* GRE, axial diffusion weighted images. ADC and exponential ADC maps generated Comparison: Reference made to brain CT 01/17/2018 Findings: No abnormal areas of restricted diffusion to suggest acute infarction. No acute hemorrhage or edema. No mass effect nor midline shift as an area of encephalomalacia in the right frontal lobe, predominantly involving the white matter but also extending into the cortex. Small foci of subcortical deep white matter high T2 signal is seen scattered throughout the convexities bilaterally. There is mild periventricular deep white matter confluent and scattered high T2 signal. There is age-related enlargement of the ventricles and extra-axial CSF spaces.. There is evidence of prior bilateral cataract surgery.. There is considerable fluid within the mastoids bilaterally. Impression: Negative for acute intracranial bleed, mass effect, or acute infarct Old right frontal infarct, also seen on recent CT scan Small peripheral subcortical high T2 foci, probably small subcortical infarcts. Confluent and focal periventricular deep white matter T2 hyperintensities, most likely on the basis of chronic ischemic change, demyelinating disease also a possibility Other chronic and age-related changes, as described Bilateral mastoid disease
[2018-01-18 15:30] LABS: BASOPHILS % (AUTO) 0.7 % (0.0-2.0); EOSINOPHILS % (AUTO) 2.1 % (0.0-3.0); HEMATOCRIT 33.9 % (42.0-52.0); HEMOGLOBIN 11.7 G/DL (14.2-18.0); LYMPHOCYTES % (AUTO) 9.3 % (20.0-45.0); MEAN CORPUSCULAR VOLUME 90 FL (80-99); NEUTROPHILS % (AUTO) 81.8 % (45.0-75.0); PLATELET COUNT 189 K/UL (150-450); RED BLOOD COUNT 3.75 M/UL (4.70-6.10); RED CELL DISTRIBUTION WIDTH 13.2 % (11.6-14.8); WHITE BLOOD COUNT 13.7 K/UL (4.8-10.8)
--- NOTE | 2018-01-18 19:58 | Consultation ---
Consult Note Consult Note NEUROLOGY CONSULTATION: Full note dictated #[id number] 72 y/o, RH, HM with PH of HTN, DM, diabetic neuropathy, BARB, CKD with renal transplant, CVD with prior stroke and left sided weakness, CAD s/p PCI and sent placement who was admitted on 01/17/18 for alteration in his mental state and a cough productive of sputum. He feels better now. ON EXAM: Mild problems with orientation Mild problems with memory. Left hemiparesis Globally absent reflexes Mildly left paretic gait. IMPRESSION; Underlying old structural brain disease with old right frontal infarct and old bilateral DWM disease. Superimposed encephalopathy due to URI, diabetes not well controlled. REC; Continue Rx. Carotid duplex - son will get results Mobilize Luis Fernando Pindea M.D., M.S.P.H. LUIS FERNANDO PINEDA Jan 18, 2018 19:58
[2018-01-18] MEDS: cycloSPORINE 25mg cap ORAL SCH (20:44)
[2018-01-18] MEDS: Metoprolol 25mg tab ORAL SCH (20:48)
[2018-01-18] MEDS ORDERED: Tamsulosin 0.4mg cap ORAL SCH (21:00)
--- NOTE | 2018-01-18 21:15 | Consultation ---
DATE OF CONSULTATION: 01/18/2018 NEUROLOGY CONSULTATION CONSULTING PHYSICIAN: Abiodun Pineda M.D. REQUESTING PHYSICIAN: Mery Gaston M.D. HISTORY: Mr. Fidencio Munoz is a 72-year-old, right-handed, gentleman, who does have past history of hypertension, diabetes mellitus, diabetic neuropathy, obstructive sleep apnea, chronic kidney disease with a prior renal transplant, cerebrovascular disease with a prior stroke and left-sided weakness, herpetic infection involving the left upper extremity, and coronary artery disease - status post percutaneous intervention and stent placement recently, who was admitted to the hospital on 01/17/2018, for an alteration in his mental state preceded by a cough productive of sputum. Since he has been in the hospital, he has improved and feels better. Both his cognitive and motor function has improved and the mind is clearer and he is feeling stronger. PAST MEDICAL HISTORY: Significant for hypertension, diabetes mellitus, diabetic neuropathy, obstructive sleep apnea, chronic kidney disease, cerebrovascular disease with left-sided weakness, coronary artery disease - status post percutaneous interventions. FAMILY HISTORY: Significant for high blood pressure and diabetes mellitus in other family members. PERSONAL HISTORY: Home: He lives with his . 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 Habits: There is no significant history of alcohol, tobacco, or illicit drug use. PRESENT MEDICATIONS: Include levofloxacin, Zetia, Flomax, Lopressor, cyclosporine, clonidine, heparin for DVT prophylaxis, aspirin 81 mg daily, DSS, pantoprazole, Januvia, Imdur, prednisone, Florinef, insulin, albuterol, ipratropium mixture, nitroglycerin p.r.n., Tylenol p.r.n., morphine p.r.n., Dulcolax p.r.n., MiraLAX p.r.n., Zofran p.r.n., and Benadryl p.r.n. PHYSICAL EXAMINATION: GENERAL: He is a well-developed, well-nourished, pleasant gentleman sitting up in a chair in no acute distress. VITAL SIGNS: Pulse 80 per minute, blood pressure 164/91 mmHg, respirations 20 per minute, and temperature 98.7 degrees Fahrenheit. HEAD: Normocephalic and atraumatic. EENT: Examination benign NECK: No neck rigidity was observed. He did have mild cervical paraspinal muscle and trapezius spasm. NEUROLOGICAL EXAMINATION: MENTAL STATUS EXAMINATION: He was awake and alert. He was oriented to person, place, and time except for the exact name of the hospital and the exact date. He was able to recall 3/3 words immediately after 1 minute and after 3 minutes. He had problems remembering the names of Trump and Obama, but with hints was able to get them and was able to remember through [employer] with hints. His mathematical skills were good. His visuospatial function was preserved. SPEECH: He had no dysarthria. LANGUAGE: He was able to comprehend and express himself well in Syriac as per his sons who were interpreting for him. CRANIAL NERVE EXAMINATION: II: The visual lee were intact on confrontation testing. III, IV, : External ocular movements were full and the pupils 3 mm in diameter, equal, round, regular, and reactive to light. V: He had normal facial sensations and the temporales, masseters, and pterygoids functioned normally. VII: He had mild left VII central facial paresis. VIII: He was able to hear well bilaterally and had no nystagmus. IX: The palate moved symmetrically on phonation. X: He had no hoarseness of voice. XI: The sternocleidomastoids and trapezii functioned normally. XII: The tongue was in the midline without any fasciculations or atrophy. MOTOR SYSTEM: The tone was normal in all four extremities. Examination of muscle mass revealed wasting of the small hand muscles on the left side. Examination of power revealed G 5/5 power except for G 4/5 power in the left finger extensors and iliopsoas. SENSORY EXAMINATION: He had intact sensations to light touch, but complained of subjective alteration over his left upper extremity. REFLEXES: 0 at the biceps, triceps, brachioradialis, knees, and ankles. The plantar responses were flexor bilaterally. COORDINATION: [id number] and rapid alternating movements were clumsy on the left side compared to the right. STANCE: He stood up with support. GAIT: He walked with mildly left paretic gait with support. DIAGNOSTIC IMPRESSION: 1. Mr. Fidencio Munoz is a 72-year-old, right-handed, gentleman, who does have past history of hypertension, diabetes mellitus, diabetic neuropathy, obstructive sleep apnea, chronic kidney disease - status post renal transplant, cerebrovascular disease with prior strokes, coronary artery disease, status post percutaneous interventions, who recently was noted to have an alteration in his mental state associated with a cough productive of sputum. Since he has been in the hospital, he feels better. 2. On neurological examination at this time, he does have mild cervical paraspinal and trapezius spasm, mild problems with orientation, mild problems with memory, a left hemiparesis involving the face, upper and lower extremities, globally absent deep tendon reflexes, and mildly left paretic gait. 3. An MRI scan of the brain performed on 01/18/2018, revealed atrophy, bilateral subcortical deep white matter disease, and in addition, an old right frontal infarct. 4. Laboratory data revealed that his WBC count was elevated to 13.7, he was anemic with hemoglobin of 11.7. His chemistry panel revealed that his creatinine was elevated to 1.6 with BUN of 43. His hemoglobin A1c was elevated to 9% and his TSH was normal at 1.4. His urinalysis was relatively benign except for 2-4 red blood cells per high-power field. 5. The patient's history and neurological examination are most compatible with underlying old structural brain disease in the form of an old right frontal infarct and old bilateral deep white matter disease with superimposed acute infectious process namely an upper respiratory infection causing an encephalopathy. RECOMMENDATIONS: 1. Agree with management thus far. 2. Would continue correcting the patient's encephalopathic process. 3. The patient's diabetes seems to be not very well controlled and should be controlled carefully. 4. His son reports that he did have a recent carotid duplex, we should review it, and if it has not been done, he should have cerebrovascular noninvasive profile performed. 5. The patient should be kept as active as possible and mobilized rapidly. Thank you for entrusting me with the care of Mr. Munoz. I shall follow him with you. Abiodun Pineda M.D., M.S.P.H. DR: Marquez JOB#: [id number] [facility] INSANEErvin
--- NOTE | 2018-01-18 21:30 | Consultation ---
DATE OF CONSULTATION: 01/18/2018 CARDIOLOGY CONSULTATION CONSULTING PHYSICIAN: Omkar Vera M.D. REFERRING PHYSICIAN: Marimar David M.D. REASON FOR CONSULTATION: Management of coronary artery disease and elevated troponin. HISTORY OF PRESENT ILLNESS: The patient is a 72-year-old gentleman with history of hypertension, diabetes, and coronary artery disease with history of prior stent placement as well as history of and dementia, was brought into the emergency room for being more confused than usual. The patient also has had a productive cough, but was afebrile. The patient also had a recent stent placement at [facility] and has history of frequent UTI. The patient was admitted and a Cardiology consultation was obtained for further evaluation and management. At the time of my evaluation, the patient denies any chest pain, palpitation, or shortness of breath. PAST MEDICAL HISTORY: As mentioned above. FAMILY HISTORY: Noncontributory. SOCIAL HISTORY: He lives at home. Does not smoke or drink alcohol. REVIEW OF SYSTEMS: Review of systems was negative other than what was mentioned in the history of present illness. PHYSICAL EXAMINATION: VITAL SIGNS: Blood pressure was initially 185/112, currently 137/101; pulse 87; respirations 18; and temperature 97.7. HEAD AND NECK: Showed no JVD. LUNGS: Clear. CARDIOVASCULAR: Regular S1 and S2 with no gallop or murmur. ABDOMEN: Soft and nontender. EXTREMITIES: No pitting edema. LABORATORY AND DIAGNOSTIC DATA: His EKG showed sinus arrhythmia, old lateral infarct. His echocardiogram showed ejection fraction of 60% to 65%. His labs show white count of 15.2, hemoglobin of 12.7, hematocrit of 35.6, and platelet count of 211,000. Sodium 140, potassium 3.0, BUN of 43, creatinine 1.6, and glucose of 122. His troponin is 0.073 and earlier troponin was 0.065. BNP is 645. His CK was 1547 with CK-MB of 4.6. His BUN was 16 and creatinine of 2.0. ASSESSMENT AND PLAN: 1. Elevated troponin in a patient with history of coronary artery disease and prior stent placement. Elevated troponin could be due to renal failure as the creatinine was 2. The patient did not have chest pain. The patient also has rhabdomyolysis with CK of more than 1500 that can contribute to elevated troponin. levels are flat. His EKG showed no acute ischemia. Echocardiogram showed normal left ventricular systolic function. Continue the patient on aspirin and Imdur 120 mg daily and add beta-toña to his medical regimen. If the patient's mental status improves, we will proceed with nuclear stress test for further evaluation. 2. Accelerated hypertension. The patient has been on Imdur 120 mg daily. Add Lopressor 25 mg b.i.d. 3. Rhabdomyolysis, on IV fluids. 4. Renal failure. The patient is status post transplant, on cyclosporine and prednisone. 5. Possible community-acquired pneumonia. The patient is still on IV antibiotic per Dr. Nelson. Thank you very much for allowing me to participate in the care of this patient. Please do not hesitate to contact me for any questions regarding my evaluation. Omkar Vera M.D. DR: ELIANA JOB#: [id number] CC:
[2018-01-18] MEDS ORDERED: HYDROcodone/Acetamin 10/325 tab ORAL PRN (23:15)
[2018-01-19] VITALS: BP 141/67
[2018-01-19] MEDS: Levemir Flexpen SUBQ SCH ×3 (01:31→17:03)
[2018-01-19 03:19] LABS: APPEARANCE,URINE CLEAR; BILIRUBIN, URINE NEGATIVE (NEGATIVE); COLOR,URINE PALE YELLOW; GLUCOSE, URINE (UA) 3+ (NEGATIVE); KETONES,URINE NEGATIVE (NEGATIVE); NITRITE,URINE NEGATIVE (NEGATIVE); PH,URINE 7 (4.5-8.0); PROTEIN,URINE 3+ (NEGATIVE); UROBILINOGEN,URINE NORMAL MG/DL (0.0-1.0)
[2018-01-19 03:27] LABS: LEUKOCYTE ESTERASE ,URINE 1+ (NEGATIVE)
[2018-01-19 04:00] VITALS: BP 152/60
[2018-01-19] MEDS: NovoLOG Insulin Flexpen SUBQ SCH ×4 (06:12→21:01)
[2018-01-19] MEDS: HYDROcodone/Acetamin 10/325 tab ORAL PRN ×2 (07:08→21:06)
[2018-01-19 08:00] VITALS: BP 181/94
--- NOTE | 2018-01-19 08:28 | Cardiology Report ---
APPROVED REPORT EXAM: Two-dimensional and M-mode echocardiogram with Doppler and color Doppler. INDICATION Shortness of breath M-Mode DIMENSIONS IVSd1.7 (0.7-1.1cm)Left Atrium (MM)3.4 (1.6-4.0cm) LVDd5.1 (3.5-5.6cm)Aortic Root2.9 (2.0-3.7cm) PWd0.9 (0.7-1.1cm)Aortic Cusp Exc.2.0 (1.5-2.0cm) LVDs3.2 (2.5-4.0cm) PWs1.5 cm Normal left ventricular chamber size, systolic function and wall motion. Left ventricular ejection fraction estimated to be 60-65 %. Mild left ventricular hypertrophy. Anterior Echo-free space, may be due to pericardial fat or effusion. All other cardiac chamber sizes are within normal limits. Focal aortic valve sclerosis with adequate cusp excursion. Thickened mitral valve leaflets with normal excursion. Mild mitral annulus and aortic root calcification. Normal pulmonic valve structure. Normal tricuspid valve structure. IVC at normal size with physiologic collapse. A color flow and spectral Doppler study was performed and revealed: Severe aortic regurgitation. Moderate mitral regurgitation. Mitral diastolic velocities suggest mild left ventricular dysfunction (Grade I ). Mild tricuspid regurgitation. Tricuspid systolic velocities suggests peak right ventricular systolic pressure of 35 mmHg, consistent with mild pulmonary hypertension. Mild pulmonic regurgitation present.
--- NOTE | 2018-01-19 08:34 | Cardiology Report ---
APPROVED REPORT EKG Measurement Heart [id number] Sinus rhythm with premature atrial complexes Lateral infarct, age undetermined Abnormal ECG
[2018-01-19 08:53] LABS: EOSINOPHILS % (AUTO) 4.6 % (0.0-3.0); HEMATOCRIT 36.4 % (42.0-52.0); HEMOGLOBIN 12.6 G/DL (14.2-18.0); LYMPHOCYTES % (AUTO) 20.9 % (20.0-45.0); MEAN CORPUSCULAR VOLUME 89 FL (80-99); MONOCYTES % (AUTO) 9.4 % (1.0-10.0); NEUTROPHILS % (AUTO) 64.1 % (45.0-75.0); PLATELET COUNT 216 K/UL (150-450); RED CELL DISTRIBUTION WIDTH 13.1 % (11.6-14.8); WHITE BLOOD COUNT 15.3 K/UL (4.8-10.8)
[2018-01-19] MEDS: BRILINTA 90 MG ORAL SCH ×2 (08:54→21:01)
[2018-01-19] MEDS: Imdur 30mg tab ORAL SCH (08:55)
[2018-01-19] MEDS: Aspirin Baby 81mg ORAL SCH (08:55)
[2018-01-19] MEDS: Metoprolol 25mg tab ORAL SCH ×2 (08:57→20:59)
[2018-01-19] MEDS: Docusate 100mg cap ORAL SCH ×2 (08:57→17:02)
[2018-01-19] MEDS: cycloSPORINE 25mg cap ORAL SCH (08:58)
[2018-01-19] MEDS: Heparin 5000 units/ml inj SUBQ SCH ×2 (08:59→21:00)
[2018-01-19 09:19] LABS: ANION GAP 9 mmol/L (5-15); BLOOD UREA NITROGEN 34 mg/dL (7-18); CALCIUM 9.5 MG/DL (8.5-10.1); CARBON DIOXIDE 25 MMOL/L (21-32); CHLORIDE 105 MMOL/L (98-107); CREATININE 1.5 MG/DL (0.55-1.30); POTASSIUM 3.5 MMOL/L (3.5-5.1); SODIUM 139 MMOL/L (136-145)
[2018-01-19 09:33] LABS: PHOSPHORUS 2.6 MG/DL (2.5-4.9)
--- NOTE | 2018-01-19 09:49 | Diagnostic Imaging Report ---
Indication: Cough Technique: One view of the chest Comparison: 01/17/2018 Findings: There is minimal atelectasis of the left lateral lung base. Lungs and pleural spaces are otherwise clear. The heart is borderline enlarged. The aorta is elongated and calcified Impression: Mild cardiomegaly Minimal left lateral basilar atelectasis. No acute process or significant interim change otherwise
[2018-01-19 12:00] VITALS: BP 179/76
[2018-01-19] MEDS ORDERED: Tamsulosin 0.4mg cap ORAL ONE (14:00)
--- NOTE | 2018-01-19 14:30 | Consultation ---
Consult Note Consult Note asked to eval for renal failure- admitted with Cr of 2 72y/o male with pmh of ESRD s/p kidney transplant ~30 years ago, CVA w/ residual L sided weakness, HTN, IDDM type 2, CAD s/p PCI (stents placed ~2-3 weeks ago) who presents with AMS. noted pt to be altered yesterday morning. Per son pt is usual alert and oriented but family noted pt to be increasingly disoriented. He has been taking his medications. C/o cough and congestion x few days. Denies chest pain, f/c, n/v, SOB, abd pain. In ED, pt had CT head which showed old stroke but no new abnormality. Labs showed leukocytosis to 11.3K, MALGORZATA w/ SCr 2.0. CXR w/ concern for pneumonia. Pt given IVFs, levaquin. Allergies: AZATHIOPRINE (Verified Allergy, Unknown, 11/20/10) patient examined- data reviewed Assessment/Plan Patient admitted with initial Cr of 2 and now down to 1.5 after hydration admitted for sepsis ( Pneumonia) and high lactic level and encephalopathy High troponin level ( NSTEMI ) Anemia of Chronic disease Other history: (1) s/p ESRD s/p kidney transplant, off dialysis now (2) HTN (3) DM2 (diabetes mellitus, type 2) (4) Diabetic neuropathy (5) H/O: CVA (cerebrovascular accident) (6) CAD s/p PCI Plan: Adjust BP meds- add norvasc Monitor renal parameters and lytes- per ID continu anti rejection meds per orders VAISHNAVI ERNANDEZ Jan 19, 2018 14:30
--- NOTE | 2018-01-19 15:33 | Cardiac Electrophysiology PN ---
Assessment/Plan Assessment/Plan 1. Elevated troponin in a patient with history of coronary artery disease and prior stent placement. Elevated troponin could be due to renal failure as the creatinine was 2. Denies chest pain. Also had rhabdomyolysis with CK of more than 1500 that can contribute to elevated troponin. His EKG showed no acute ischemia. Echocardiogram showed normal left ventricular systolic function. Continue Lopressor 25 bid, aspirin and Imdur 120 mg daily Nuclear stress test after PNA resolves and WBC normalizes 2. Accelerated hypertension. Better on Norvasc, Lopressor and Imdur 120 mg 3. Rhabdomyolysis, on IV fluids. 4. Renal failure. The patient is status post transplant, on cyclosporine and prednisone. 5. Possible community-acquired pneumonia. On IV antibiotic per Dr. Nelson. DW Dr Ordonez Subjective Subjective Feeling better. No chest pain or SOB. Objective Last 24 Hour Vital Signs Date Time Temp Pulse Resp B/P (MAP) Pulse Ox O2 Delivery O2 Flow Rate FiO2 01/19/18 13:30 21 01/19/18 13:30 82 18 100 Room Air 21 01/19/18 12:00 97.1 57 20 179/76 99 Room Air 01/19/18 12:00 57 01/19/18 10:49 180/90 01/19/18 08:57 85 181/94 01/19/18 08:55 181/94 01/19/18 08:02 85 16 Room Air 01/19/18 08:00 97.1 63 20 181/94 97 Room Air 01/19/18 08:00 72 01/19/18 04:00 97.0 61 19 152/60 97 Room Air 01/19/18 04:00 68 01/19/18 00:00 97.7 79 19 141/67 97 Room Air 01/19/18 00:00 76 01/18/18 21:00 97.7 91 20 165/88 01/18/18 20:48 91 165/88 01/18/18 20:00 97 01/18/18 18:45 83 18 Room Air 01/18/18 16:00 81 01/18/18 16:00 98.7 81 20 164/91 100 Room Air Pulses: decreased: PT (L) Intake and Output 01/18/18 01/19/18 19:00 07:00 Intake Total 930 ml Output Total 1400 ml 800 ml Balance -470 ml -800 ml Intake Oral 730 ml IV Total 200 ml Output Urine Total 1400 ml 800 ml # Bowel Movements 1 1 Laboratory Tests Test 01/19/18 02:00 01/19/18 07:20 Urine Color Pale yellow Urine Appearance Clear Urine pH 7 (4.5-8.0) Urine Specific [place] 1.005 (1.005-1.035) Urine Protein 3+ (NEGATIVE) H Urine Glucose (UA) 3+ (NEGATIVE) H Urine Ketones Negative (NEGATIVE) Urine Occult Blood 4+ (NEGATIVE) H Urine Nitrite Negative (NEGATIVE) Urine Bilirubin Negative (NEGATIVE) Urine Urobilinogen Normal MG/DL (0.0-1.0) Urine Leukocyte Esterase 1+ (NEGATIVE) H Urine RBC 15-20 /HPF (0 - 0) H Urine WBC 5-10 /HPF (0 - 0) H Urine Squamous Epithelial Cells None /LPF (NONE/OCC) Urine Bacteria None /HPF (NONE) White Blood Count 15.3 K/UL (4.8-10.8) H Red Blood Count 4.10 M/UL (4.70-6.10) L Hemoglobin 12.6 G/DL (14.2-18.0) L Hematocrit 36.4 % (42.0-52.0) L Mean Corpuscular Volume 89 FL (80-99) Mean Corpuscular Hemoglobin 30.7 PG (27.0-31.0) Mean Corpuscular Hemoglobin Concent 34.6 G/DL (32.0-36.0) Red Cell Distribution Width 13.1 % (11.6-14.8) Platelet Count 216 K/UL (150-450) Mean Platelet Volume 8.1 FL (6.5-10.1) Neutrophils (%) (Auto) 64.1 % (45.0-75.0) Lymphocytes (%) (Auto) 20.9 % (20.0-45.0) Monocytes (%) (Auto) 9.4 % (1.0-10.0) Eosinophils (%) (Auto) 4.6 % (0.0-3.0) H Basophils (%) (Auto) 1.0 % (0.0-2.0) Sodium Level 139 MMOL/L (136-145) Potassium Level 3.5 MMOL/L (3.5-5.1) Chloride Level 105 MMOL/L (98-107) Carbon Dioxide Level 25 MMOL/L (21-32) Anion Gap 9 mmol/L (5-15) Blood Urea Nitrogen 34 mg/dL (7-18) H Creatinine 1.5 MG/DL (0.55-1.30) H Estimat Glomerular Filtration Rate mL/min (>60) Glucose Level 152 MG/DL (74-106) H Calcium Level 9.5 MG/DL (8.5-10.1) Phosphorus Level 2.6 MG/DL (2.5-4.9) Magnesium Level 1.6 MG/DL (1.8-2.4) L Pro-B-Type Natriuretic Peptide 1051 pg/mL (0-125) H Vitamin B12 Level 664 PG/ML (193-986) Vitamin D 25-Hydroxy Pending 25-Hydroxy Vitamin D2 Pending 25-Hydroxy Vitamin D3 Pending Folate 16.0 NG/ML (8.6-58.9) Microbiology Date/Time Source Procedure Growth Status 01/17/18 20:30 Blood Blood Culture - Preliminary NO GROWTH AFTER 24 HOURS Resulted 01/17/18 20:15 Blood Blood Culture - Preliminary NO GROWTH AFTER 24 HOURS Resulted 01/17/18 20:30 Nasal Nares Influenza Types A,B Antigen (SUKHJINDER) - Final Complete Objective HEAD AND NECK: Showed no JVD. LUNGS: Clear. CARDIOVASCULAR: Regular S1 and S2 with no gallop or murmur. ABDOMEN: Soft and nontender. EXTREMITIES: No pitting edema. SITA SERNA Jan 19, 2018 15:33
--- NOTE | 2018-01-19 15:38 | Infectious Diseases Prog Note ---
Assessment/Plan Assessment/Plan Full consult dictated: A) 1) uti, uri/bronchitis, chest x-ray negative x 2 and influenza negative 2) leukocytosis, ? occult sepsis 3) renal transplant, dm, htn, cad, stent P) 1) change to rocephin 2) f/u urine culture and labs 3) will f/u Subjective Constitutional: Denies: fever Respiratory: Denies: shortness of breath Gastrointestinal/Abdominal: Denies: nausea, vomiting, diarrhea Neurologic: Denies: headache Allergies: Coded Allergies: AZATHIOPRINE (Verified Allergy, Unknown, 11/20/10) Objective Vital Signs Last 24 Hour Vital Signs Date Time Temp Pulse Resp B/P (MAP) Pulse Ox O2 Delivery O2 Flow Rate FiO2 01/19/18 13:30 21 01/19/18 13:30 82 18 100 Room Air 21 01/19/18 12:00 97.1 57 20 179/76 99 Room Air 01/19/18 12:00 57 01/19/18 10:49 180/90 01/19/18 08:57 85 181/94 01/19/18 08:55 181/94 01/19/18 08:02 85 16 Room Air 01/19/18 08:00 97.1 63 20 181/94 97 Room Air 01/19/18 08:00 72 01/19/18 04:00 97.0 61 19 152/60 97 Room Air 01/19/18 04:00 68 01/19/18 00:00 97.7 79 19 141/67 97 Room Air 01/19/18 00:00 76 01/18/18 21:00 97.7 91 20 165/88 01/18/18 20:48 91 165/88 01/18/18 20:00 97 01/18/18 18:45 83 18 Room Air 01/18/18 16:00 81 01/18/18 16:00 98.7 81 20 164/91 100 Room Air Height (Feet): 5 Height (Inches): 6.00 Weight (Pounds): 158 General Appearance: no acute distress HEENT: normocephalic, atraumatic, anicteric Respiratory/Chest: lungs clear, normal breath sounds, no respiratory distress Cardiovascular: normal rate, regular rhythm, no gallop/murmur Abdomen: normal bowel sounds, soft, non tender, no organomegaly Extremities: no cyanosis Skin: no rash 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 Microbiology Date/Time Source Procedure Growth Status 01/17/18 20:30 Blood Blood Culture - Preliminary NO GROWTH AFTER 24 HOURS Resulted 01/17/18 20:15 Blood Blood Culture - Preliminary NO GROWTH AFTER 24 HOURS Resulted 01/17/18 20:30 Nasal Nares Influenza Types A,B Antigen (SUKHJINDER) - Final Complete Laboratory Tests Test 01/19/18 02:00 01/19/18 07:20 Urine Color Pale yellow Urine Appearance Clear Urine pH 7 (4.5-8.0) Urine Specific [place] 1.005 (1.005-1.035) Urine Protein 3+ (NEGATIVE) H Urine Glucose (UA) 3+ (NEGATIVE) H Urine Ketones Negative (NEGATIVE) Urine Occult Blood 4+ (NEGATIVE) H Urine Nitrite Negative (NEGATIVE) Urine Bilirubin Negative (NEGATIVE) Urine Urobilinogen Normal MG/DL (0.0-1.0) Urine Leukocyte Esterase 1+ (NEGATIVE) H Urine RBC 15-20 /HPF (0 - 0) H Urine WBC 5-10 /HPF (0 - 0) H Urine Squamous Epithelial Cells None /LPF (NONE/OCC) Urine Bacteria None /HPF (NONE) White Blood Count 15.3 K/UL (4.8-10.8) H Red Blood Count 4.10 M/UL (4.70-6.10) L Hemoglobin 12.6 G/DL (14.2-18.0) L Hematocrit 36.4 % (42.0-52.0) L Mean Corpuscular Volume 89 FL (80-99) Mean Corpuscular Hemoglobin 30.7 PG (27.0-31.0) Mean Corpuscular Hemoglobin Concent 34.6 G/DL (32.0-36.0) Red Cell Distribution Width 13.1 % (11.6-14.8) Platelet Count 216 K/UL (150-450) Mean Platelet Volume 8.1 FL (6.5-10.1) Neutrophils (%) (Auto) 64.1 % (45.0-75.0) Lymphocytes (%) (Auto) 20.9 % (20.0-45.0) Monocytes (%) (Auto) 9.4 % (1.0-10.0) Eosinophils (%) (Auto) 4.6 % (0.0-3.0) H Basophils (%) (Auto) 1.0 % (0.0-2.0) Sodium Level 139 MMOL/L (136-145) Potassium Level 3.5 MMOL/L (3.5-5.1) Chloride Level 105 MMOL/L (98-107) Carbon Dioxide Level 25 MMOL/L (21-32) Anion Gap 9 mmol/L (5-15) Blood Urea Nitrogen 34 mg/dL (7-18) H Creatinine 1.5 MG/DL (0.55-1.30) H Estimat Glomerular Filtration Rate mL/min (>60) Glucose Level 152 MG/DL (74-106) H Calcium Level 9.5 MG/DL (8.5-10.1) Phosphorus Level 2.6 MG/DL (2.5-4.9) Magnesium Level 1.6 MG/DL (1.8-2.4) L C-Reactive Protein, Quantitative Pending Pro-B-Type Natriuretic Peptide 1051 pg/mL (0-125) H Vitamin B12 Level 664 PG/ML (193-986) Vitamin D 25-Hydroxy Pending 25-Hydroxy Vitamin D2 Pending 25-Hydroxy Vitamin D3 Pending Folate 16.0 NG/ML (8.6-58.9) Current Medications Medications (Trade) Dose Ordered Sig/Lauren Route PRN Reason Start Time Stop Time Status Last Admin Dose Admin Acetaminophen (Tylenol) 650 mg Q4H PRN RECTAL Mild Pain (Pain Scale 1-3) 01/17/18 22:30 02/16/18 22:29 Acetaminophen (Tylenol) 650 mg Q4H PRN RECTAL fever 01/17/18 22:30 02/16/18 22:29 Acetaminophen/ Hydrocodone Bitart ([place] 10/325) 1 tab Q4H PRN ORAL For moderate to severe Pain 01/19/18 03:15 01/26/18 03:14 01/19/18 07:08 Albuterol/ Ipratropium (Albuterol/ Ipratropium) 3 ml Q4H PRN HHN Shortness of Breath 01/17/18 22:30 01/22/18 22:29 01/19/18 13:30 Amlodipine Besylate (Norvasc) 5 mg BID ORAL 01/19/18 21:00 02/18/18 20:59 Amlodipine Besylate (Norvasc) 5 mg ONCE ONCE ORAL 01/19/18 15:30 01/19/18 15:31 Aspirin (ASA) 81 mg DAILY ORAL 01/18/18 09:00 02/17/18 08:59 01/19/18 08:55 Benzonatate (Tessalon Perles) 100 mg TID PRN ORAL cough 01/17/18 22:30 02/16/18 22:29 01/18/18 08:53 Bisacodyl (Dulcolax) 10 mg DAILYPRN PRN RECTAL Constipation 01/17/18 22:30 02/16/18 22:29 Clonidine HCl (Catapres Tab) 0.1 mg Q4H PRN ORAL FOR SBP>170 01/19/18 14:45 02/17/18 13:59 Cyclosporine (SandIMMUNE) 100 mg Q12HR ORAL 01/19/18 21:00 02/17/18 20:59 Dextrose (Dextrose 50%) STAT PRN IV Hypoglycemia 01/17/18 22:45 02/16/18 22:44 Docusate Sodium (Colace) 100 mg TID ORAL 01/19/18 18:00 02/17/18 08:59 EZETIMIBE (Zetia) 10 mg BEDTIME ORAL 01/18/18 21:00 02/17/18 20:59 01/18/18 20:44 Heparin Sodium (Porcine) (Heparin 5000 units/ml) 5,000 units EVERY 12 HOURS SUBQ 01/18/18 09:00 02/17/18 08:59 01/19/18 08:59 Insulin Aspart (NovoLOG) BEFORE MEALS AND HS SUBQ 01/18/18 06:30 02/17/18 06:29 01/19/18 12:02 Insulin Detemir (Levemir) 22 units BID SUBQ 01/18/18 23:00 02/17/18 22:59 01/19/18 09:23 Isosorbide Mononitrate (Imdur) 90 mg DAILY ORAL 01/19/18 09:00 02/18/18 08:59 01/19/18 08:55 Levofloxacin 150 ml @ 100 mls/hr Q48H IVPB 01/19/18 18:00 01/26/18 17:59 Magnesium Sulfate 100 ml @ 100 mls/hr Q1H IVPB 01/19/18 15:00 01/19/18 16:59 01/19/18 14:29 Metoprolol Tartrate (Lopressor) 25 mg EVERY 12 HOURS ORAL 01/18/18 21:00 02/17/18 20:59 01/19/18 08:57 Nitroglycerin (Ntg) 0.4 mg Q5M PRN SL Prn Chest Pain 01/17/18 22:30 02/16/18 22:29 Ondansetron HCl (Zofran) 4 mg Q6H PRN IVP Nausea & Vomiting 01/17/18 22:30 02/16/18 22:29 Pantoprazole (Protonix) 40 mg DAILY ORAL 01/18/18 09:00 02/17/18 08:59 01/19/18 08:57 Patient Own Medication (Patient's Own Med) 1 ea Q12HR ORAL 01/18/18 12:00 02/17/18 11:59 01/19/18 08:54 Polyethylene Glycol (Miralax) 17 gm DAILYPRN PRN ORAL Constipation 01/17/18 22:30 02/16/18 22:29 Prednisone (predniSONE) 5 mg DAILY ORAL 01/18/18 09:00 02/17/18 08:59 01/19/18 08:57 Sitagliptin Phosphate (Januvia) 100 mg DAILY ORAL 01/18/18 09:00 02/17/18 08:59 01/19/18 08:55 Tamsulosin HCl (Flomax) 0.4 mg BID ORAL 01/19/18 21:00 02/18/18 20:59 MONICA BERRY Jan 19, 2018 15:38
[2018-01-19 16:00] VITALS: BP 176/78
[2018-01-19] MEDS ORDERED: cefTRIAXone 1 GM in NS 55 ML IVPB SCH (17:00)
--- NOTE | 2018-01-19 19:27 | Neurology Progress Note ---
Interim History Interim History Interim History Mr. Munoz feels well. He is bothered by low back pain. He was also short of breath earlier but is better now. He denies any new neurologic symptoms. He specifically denies any increased weakness on one side or the other, numbness on on side or the other, problems with speech or problems with vision. Review of Systems Neuro Review of Systems Benign. Objective Physical Exam Last Vital Signs Date Time Temp Pulse Resp B/P (MAP) Pulse Ox O2 Delivery O2 Flow Rate FiO2 01/19/18 16:00 96.8 64 20 176/78 100 Room Air 96.8 01/19/18 13:30 21 Laboratory Tests Test 01/19/18 02:00 01/19/18 07:20 Urine Color Pale yellow Urine Appearance Clear Urine pH 7 (4.5-8.0) Urine Specific [place] 1.005 (1.005-1.035) Urine Protein 3+ (NEGATIVE) H Urine Glucose (UA) 3+ (NEGATIVE) H Urine Ketones Negative (NEGATIVE) Urine Occult Blood 4+ (NEGATIVE) H Urine Nitrite Negative (NEGATIVE) Urine Bilirubin Negative (NEGATIVE) Urine Urobilinogen Normal MG/DL (0.0-1.0) Urine Leukocyte Esterase 1+ (NEGATIVE) H Urine RBC 15-20 /HPF (0 - 0) H Urine WBC 5-10 /HPF (0 - 0) H Urine Squamous Epithelial Cells None /LPF (NONE/OCC) Urine Bacteria None /HPF (NONE) White Blood Count 15.3 K/UL (4.8-10.8) H Red Blood Count 4.10 M/UL (4.70-6.10) L Hemoglobin 12.6 G/DL (14.2-18.0) L Hematocrit 36.4 % (42.0-52.0) L Mean Corpuscular Volume 89 FL (80-99) Mean Corpuscular Hemoglobin 30.7 PG (27.0-31.0) Mean Corpuscular Hemoglobin Concent 34.6 G/DL (32.0-36.0) Red Cell Distribution Width 13.1 % (11.6-14.8) Platelet Count 216 K/UL (150-450) Mean Platelet Volume 8.1 FL (6.5-10.1) Neutrophils (%) (Auto) 64.1 % (45.0-75.0) Lymphocytes (%) (Auto) 20.9 % (20.0-45.0) Monocytes (%) (Auto) 9.4 % (1.0-10.0) Eosinophils (%) (Auto) 4.6 % (0.0-3.0) H Basophils (%) (Auto) 1.0 % (0.0-2.0) Sodium Level 139 MMOL/L (136-145) Potassium Level 3.5 MMOL/L (3.5-5.1) Chloride Level 105 MMOL/L (98-107) Carbon Dioxide Level 25 MMOL/L (21-32) Anion Gap 9 mmol/L (5-15) Blood Urea Nitrogen 34 mg/dL (7-18) H Creatinine 1.5 MG/DL (0.55-1.30) H Estimat Glomerular Filtration Rate mL/min (>60) Glucose Level 152 MG/DL (74-106) H Calcium Level 9.5 MG/DL (8.5-10.1) Phosphorus Level 2.6 MG/DL (2.5-4.9) Magnesium Level 1.6 MG/DL (1.8-2.4) L C-Reactive Protein, Quantitative 1.1 mg/dL (0.00-0.90) H Pro-B-Type Natriuretic Peptide 1051 pg/mL (0-125) H Vitamin B12 Level 664 PG/ML (193-986) Vitamin D 25-Hydroxy Pending 25-Hydroxy Vitamin D2 Pending 25-Hydroxy Vitamin D3 Pending Folate 16.0 NG/ML (8.6-58.9) Neurologic Exam Objective PHYSICAL EXAMINATION: GENERAL: He is a well-developed, well-nourished, pleasant gentleman lying in bed in no acute distress. HEAD: Normocephalic and atraumatic. EENT: Examination benign NECK: No neck rigidity was observed. He did have mild cervical paraspinal muscle and trapezius spasm. NEUROLOGICAL EXAMINATION: MENTAL STATUS EXAMINATION: He was awake and alert. He was oriented to person, place, and time except for the exact date. He was able to recall 3/3 words immediately after 1 minute and after 3 minutes. He had problems remembering the names of Trump and Obama, but with hints was able to get them and was able to remember through [employer] with hints. His mathematical skills were good. His visuospatial function was preserved. SPEECH: He had no dysarthria. LANGUAGE: He was able to comprehend and express himself well in [place]. CRANIAL NERVE EXAMINATION: II: The visual lee were intact on confrontation testing. III, IV, : External ocular movements were full and the pupils 3 mm in diameter, equal, round, regular, and reactive to light. V: He had normal facial sensations and the temporales, masseters, and pterygoids functioned normally. VII: He had mild left VII central facial paresis. VIII: He was able to hear well bilaterally and had no nystagmus. IX: The palate moved symmetrically on phonation. X: He had no hoarseness of voice. XI: The sternocleidomastoids and trapezii functioned normally. XII: The tongue was in the midline without any fasciculations or atrophy. MOTOR SYSTEM: The tone was normal in all four extremities. Examination of muscle mass revealed wasting of the small hand muscles on the left side.Examination of power revealed G 5/5 power except for G 4/5 power in the left finger extensors and iliopsoas. SENSORY EXAMINATION: He had intact sensations to light touch, but complained of subjective alteration over his left upper extremity. REFLEXES: 0 at the biceps, triceps, brachioradialis, knees, and ankles. The plantar responses were flexor bilaterally. COORDINATION: [id number] and rapid alternating movements were clumsy on the left side compared to the right. STANCE: He stood up with support. GAIT: He walked with mildly left paretic gait with support. Impression/Recommendations Diagnostic Impression 1. Mr. Fidencio Munoz is a 72-year-old, right-handed, gentleman, who does have past history of hypertension, diabetes mellitus, diabetic neuropathy, obstructive sleep apnea, chronic kidney disease - status post renal transplant, cerebrovascular disease with prior strokes, coronary artery disease , status post percutaneous interventions, who recently was noted to have an alteration in his mental state associated with a cough productive of sputum. 2. He feels well today. He is bothered by low back pain. He was also short of breath earlier but is better now. He denies any new neurologic symptoms. 3. On neurological examination at this time, he does have mild cervical paraspinal and trapezius spasm, mild problems with orientation, mild problems with memory, a left hemiparesis involving the face, upper and lower extremities , globally absent deep tendon reflexes, and mildly left paretic gait. 4. An MRI scan of the brain performed on 01/18/2018, revealed atrophy, bilateral subcortical deep white matter disease, and in addition, an old right frontal infarct. 5. Laboratory data on my initial examination revealed that his WBC count was elevated to 13.7, he was anemic with hemoglobin of 11.7. His chemistry panel revealed that his creatinine was elevated to 1.6 with BUN of 43. His hemoglobin A1c was elevated to 9% and his TSH was normal at 1.4. His urinalysis was relatively benign except for 2-4 red blood cells per high-power field. 6. The patient's history and neurological examination are most compatible with underlying old structural brain disease in the form of an old right frontal infarct and old bilateral deep white matter disease with superimposed acute infectious process namely an upper respiratory infection causing an encephalopathy. Recommendations 1. Continue present management. 2. Would continue correcting the patient's encephalopathic process. 3. The patient's diabetes seems to be not very well controlled and should be controlled carefully. 4. His son is going to retrieve his recent carotid duplex. 5. The patient should be kept as active as possible and mobilized rapidly. Luis Fernando Jasmine M.D., M.S.P.Mary. LUIS FERNANDO JASMINE Jan 19, 2018 19:27
[2018-01-19 20:00] VITALS: BP 160/76
--- NOTE | 2018-01-19 20:11 | General Progress Note ---
Assessment/Plan Problem List: (1) Sepsis ICD Codes: A41.9 - Sepsis, unspecified organism SNOMED: 16435284 Qualifiers: Qualified Codes: A41.9 - Sepsis, unspecified organism (2) Lactic acid acidosis ICD Codes: E87.2 - Acidosis SNOMED: 12350788 (3) Toxic metabolic encephalopathy ICD Codes: G92 - Toxic encephalopathy SNOMED: 368257364 (4) HCAP (healthcare-associated pneumonia) ICD Codes: J18.9 - Pneumonia, unspecified organism SNOMED: 364270100 (5) NSTEMI (non-ST elevated myocardial infarction) ICD Codes: I21.4 - Non-ST elevation (NSTEMI) myocardial infarction SNOMED: 926935945 (6) MALGORZATA (acute kidney injury) ICD Codes: N17.9 - Acute kidney failure, unspecified SNOMED: 78901172 (7) Anemia of chronic disease ICD Codes: D63.8 - Anemia in other chronic diseases classified elsewhere SNOMED: 468276684 (8) ESRD s/p kidney transplant (9) CAD s/p PCI (10) H/O: CVA (cerebrovascular accident) Assessment & Plan: R frontal lobe ICD Codes: Z86.73 - Personal history of transient ischemic attack (TIA), and cerebral infarction without residual deficits SNOMED: 742710575 (11) HTN (12) DM2 (diabetes mellitus, type 2) ICD Codes: E11.9 - Type 2 diabetes mellitus without complications SNOMED: 49220693 (13) Diabetic neuropathy ICD Codes: E11.40 - Type 2 diabetes mellitus with diabetic neuropathy, unspecified SNOMED: 23645976, 343714902, 926037209 Status: stable Assessment/Plan Neuro consulted Neuro checks q4h CT brain reviewed F/u MRI brain--no acute abnormality, old R frontal infarct Renal consulted IVFs Trend BMP closely Strict I/O's Replete lytes ID consulted s/p levaquin (01/17-01/19) Start ceftriaxone per ID (01/19-) F/u cultures Cardiology consulted TTE showed EF 60-65% Check lipid panel, A1C, TSH ASA, ticagrelor, statin, BP meds Hold lasix, losartan given MALGORZATA HUONG PT/OT DVT Prophylaxis: SCD, HSQ Code Status: Full Hospital Classification Declaration: Based on this initial evaluation, and depending on the patient's clinical course, I anticipate that this patient will require hospitalization for 1-2 days for sepsis, PNA, MALGORZATA, NSTEMI and close respiratory/hemodynamic monitoring. Disposition: Once the patient is stable to leave the hospital, I anticipate the patient will likely be discharged to the following environment: home with HH vs SNF Discussed with patient/family, nursing staff, SW/CM, neuro, renal, ID, cardiology regarding clinical status, treatment course, and disposition planning. Time of note may not reflect time of encounter. Subjective Date patient seen: Jan 19, 2018 Time patient seen: 11:00 ROS Limited/Unobtainable: No Constitutional: Reports: weakness HEENT: Reports: no symptoms Cardiovascular: Reports: no symptoms Respiratory: Reports: no symptoms Gastrointestinal/Abdominal: Reports: no symptoms Genitourinary: Reports: no symptoms Neurologic/Psychiatric: Reports: no symptoms Endocrine: Reports: no symptoms Hematologic/Lymphatic: Reports: no symptoms Allergies: Coded Allergies: AZATHIOPRINE (Verified Allergy, Unknown, 11/20/10) Subjective No acute o/n events WBC still elevated at 15K Cont on IV abx per ID SCr downtrending to 1.5 Mental status improving. Denies f/c, n/v, d/c, chest pain, SOB Objective Last 24 Hour Vital Signs Date Time Temp Pulse Resp B/P (MAP) Pulse Ox O2 Delivery O2 Flow Rate FiO2 01/19/18 16:00 62 01/19/18 16:00 96.8 64 20 176/78 100 Room Air 96.8 01/19/18 15:37 60 179/76 01/19/18 13:30 21 01/19/18 13:30 82 18 100 Room Air 21 01/19/18 12:00 97.1 57 20 179/76 99 Room Air 01/19/18 12:00 57 01/19/18 10:49 180/90 01/19/18 08:57 85 181/94 01/19/18 08:55 181/94 01/19/18 08:02 85 16 Room Air 01/19/18 08:00 97.1 63 20 181/94 97 Room Air 01/19/18 08:00 72 01/19/18 04:00 97.0 61 19 152/60 97 Room Air 01/19/18 04:00 68 01/19/18 00:00 97.7 79 19 141/67 97 Room Air 01/19/18 00:00 76 01/18/18 21:00 97.7 91 20 165/88 01/18/18 20:48 91 165/88 Intake and Output 01/18/18 01/19/18 19:00 07:00 Intake Total 930 ml Output Total 1400 ml 800 ml Balance -470 ml -800 ml Intake Oral 730 ml IV Total 200 ml Output Urine Total 1400 ml 800 ml # Bowel Movements 1 1 Laboratory Tests 01/19/18 02:00: Urine Color Pale yellow, Urine Appearance Clear, Urine pH 7, Urine Specific [place] 1.005, Urine Protein 3+H, Urine Glucose (UA) 3+H, Urine Ketones Negative , Urine Occult Blood 4+H, Urine Nitrite Negative, Urine Bilirubin Negative, Urine Urobilinogen Normal, Urine Leukocyte Esterase 1+H, Urine RBC 15-20H, Urine WBC 5-10H, Urine Squamous Epithelial Cells None, Urine Bacteria None 01/19/18 07:20: White Blood Count 15.3H, Red Blood Count 4.10L, Hemoglobin 12.6L, Hematocrit 36.4L, Mean Corpuscular Volume 89, Mean Corpuscular Hemoglobin 30.7, Mean Corpuscular Hemoglobin Concent 34.6, Red Cell Distribution Width 13.1, Platelet Count 216, Mean Platelet Volume 8.1, Neutrophils (%) (Auto) 64.1, Lymphocytes (% ) (Auto) 20.9, Monocytes (%) (Auto) 9.4, Eosinophils (%) (Auto) 4.6H, Basophils (%) (Auto) 1.0, Sodium Level 139, Potassium Level 3.5, Chloride Level 105, Carbon Dioxide Level 25, Anion Gap 9, Blood Urea Nitrogen 34H, Creatinine 1.5H, Estimat Glomerular Filtration Rate , Glucose Level 152H, Calcium Level 9.5, Phosphorus Level 2.6, Magnesium Level 1.6L, C-Reactive Protein, Quantitative 1.1H, Pro-B-Type Natriuretic Peptide 1051H, Vitamin B12 Level 664, Vitamin D 25- Hydroxy [Pending], 25-Hydroxy Vitamin D2 [Pending], 25-Hydroxy Vitamin D3 [ Pending], Folate 16.0 Height (Feet): 5 Height (Inches): 6.00 Weight (Pounds): 158 Objective General: alert, cooperative, no distress, appears stated age, A&Ox2 Head: normocephalic, without obvious abnormality, atraumatic Eyes: conjunctivae/corneas clear. PERRL, EOM's intact Throat: lips, mucosa, and tongue normal. MMM Neck: supple, symmetrical, trachea midline, and no JVD Lungs: clear to auscultation bilaterally Heart: regular rate and rhythm, S1, S2 normal, no murmur, click, rub or gallop Abdomen: soft, non-tender, non-distended, bowel sounds normal Extremities: extremities normal, atraumatic, no cyanosis or edema Pulses: 2+ and symmetric Skin: skin color, texture, turgor normal; no rashes or lesions Mery Gaston M.D. Jan 19, 2018 20:11
[2018-01-19] MEDS: Tamsulosin 0.4mg cap ORAL SCH (20:59)
[2018-01-19] MEDS: cycloSPORINE 100mg cap ORAL SCH (20:59)
--- NOTE | 2018-01-19 23:30 | Consultation ---
DATE OF CONSULTATION: 01/19/2018 REFERRING PHYSICIAN: Mery Gaston M.D. CONSULTING PHYSICIAN: Jeremy Tang M.D. REASON FOR CONSULTATION: For evaluation of urinary retention, UTI, and acute kidney injury. HISTORY OF PRESENT ILLNESS: This is a 72-year-old, male. He came to the Emergency Room because of altered level of consciousness. He was noted to have pyuria. He was noted to be in acute kidney injury. On the floor, he was noted to have elevated PVR of over 500 mL. Urology evaluation is requested. I did talk to the patient's son. The patient apparently does have a history of BPH. He has been on Flomax b.i.d. and finasteride, which was started a few weeks ago. He has been followed by an outside urologist in [facility]. The patient's family has declined placement of a Parker catheter. The patient has a history of kidney transplant, which was done over 30 years ago. PAST MEDICAL HISTORY: Significant for above. Also, history of diabetes, coronary artery disease, history of CVA, and dementia. PAST SURGICAL HISTORY: He has had renal transplant. I believe he has had caddo nephrectomies. MEDICATIONS: Current medication list was reviewed. He is currently on Flomax, cyclosporine, Norvasc, Colace, Rocephin, Imdur, [place], Levemir, Zetia, Lopressor, heparin, aspirin, Protonix, Januvia, prednisone, NovoLog, nitroglycerin, Colace, MiraLax, and Zofran. ALLERGIES: To azathioprine. SOCIAL HISTORY: The patient is currently a nonsmoker. FAMILY HISTORY: Noncontributory. REVIEW OF SYSTEMS: As above. PHYSICAL EXAMINATION: GENERAL: This is an elderly male, in no acute distress. VITAL SIGNS: Temperature is 96.8 degrees and blood pressure 176/78. HEENT: Normocephalic. NECK: Supple. ABDOMEN: Soft. He has multiple scars. LABORATORY DATA: BUN is 34 and creatinine is 1.5. He had a creatinine of 2.0 on admission two days ago. Apparently, his baseline creatinine is 1.1 per the son. White count of 15.3, hemoglobin 12.6, and platelets are 216,000. UA showed 15 to 20 RBCs, 5 to 10 WBCs, and 3+ protein. I do not see urine culture on record. He did have a blood culture, which is negative 24 hours. DIAGNOSTIC IMAGING STUDIES: The patient does not have any renal imaging studies during this admission. He did have a CT scan back in 2014 and at that time, there was mention of significant bladder distention with hydronephrosis of the transplant kidney. There was absence of bilateral c[place]o kidneys. There was mention of a small fat-containing right inguinal hernia. IMPRESSION: 1. Benign prostatic hypertrophy. 2. Urinary retention. 3. Pyuria, rule out urinary tract infection. 4. Hematuria. 5. Proteinuria. 6. Acute kidney injury. 7. History of inguinal hernia. 8. History of hydronephrosis of transplant kidney. PLAN AND DISCUSSION: Again, as noted above, the patient did have elevated PVR of greater than 500 mL. I initially had recommended the Parker placement, which the family and the patient refused and the patient was eventually able to urinate with greater volumes. He is to continue with Flomax, which has been increased to b.i.d. and I will resume his finasteride 5 mg daily. He is to continue with antibiotics as ordered. Again, he is currently on Rocephin. Urine culture will be obtained. His renal function was monitored and we will consider repeat renal imaging. Apparently, according to the son, his outside urologist is contemplating a TURP, which can be done at a later time electively. Thank you for this consultation. Jeremy Tang M.D. DR: Cristiano JOB#: [id number] CC:
[2018-01-20] VITALS: BP 169/76
--- NOTE | 2018-01-20 00:30 | Consultation ---
DATE OF CONSULTATION: 01/19/2018 INFECTIOUS DISEASES CONSULTATION ATTENDING PHYSICIAN: Marimar David M.D. REFERRING PHYSICIAN: Dr. Ordonez. REASON FOR CONSULTATION: Leukocytosis, unclear if the patient has occult sepsis. CHIEF COMPLAINT: The patient's chief complaint coming into the hospital is congestion, shortness of breath, and cough. HISTORY OF PRESENT ILLNESS: This is a 72-year-old male with history of renal transplant, on immunosuppressive medications, who presents to [facility] with congestion and acute renal failure, also altered mental status and cough. The patient was noted to have leukocytosis. Urinalysis had white cells. Chest x-ray has been negative x2 for pneumonia. Infectious Diseases consultation is requested for further evaluation of this patient with leukocytosis and possible occult sepsis in immunocompromised patient. The patient was on Levaquin and was switched to Rocephin since the patient has a positive urinalysis. Case was discussed with Dr. Ordonez. MAR was noted. Orders were noted. Notes were reviewed. Case discussed with RN, the patient, and family members. REVIEW OF SYSTEMS: CONSTITUTIONAL: He came in with altered mental status. He has generalized weakness and fatigue. He has no fever or chills. HEAD AND NECK: No head pain or neck pain. No thrush, dysphagia, neck stiffness, or change in vision. CARDIAC: No chest pain or palpitations. GASTROINTESTINAL: No nausea, vomiting, or diarrhea. GENITOURINARY: He has no Parker. No mention of CVA tenderness. PULMONARY: No congestion, shortness of breath, hemoptysis, or secretions. SKIN: No rash or itching. EXTREMITIES: No extremity pain. NEUROLOGIC: No seizure activity. CARDIAC: No chest pain or pressors. No mention of weight loss or night sweats. PAST MEDICAL HISTORY: Includes the following: The patient has past medical history of renal transplant and was on immunosuppressive medications, has history of CVA, left-sided weakness, history of hypertension, diabetes type 2, history of CAD, stents, PCI, as discussed history altered mental status, has acute kidney injury, dehydration elevated creatinine, and anemia. Also other past psychiatric history of dementia, history of stents, myocardial infarction, and BPH. ALLERGIES: He has allergies azathioprine. No antibiotic allergies. FAMILY HISTORY: Noncontributory. Negative for exposure to tuberculosis or cancer. SOCIAL HISTORY: Negative for smoking, alcohol, or drug abuse. MEDICATIONS: Upon reviewing the Mar, he is on following medications. He is on Flomax, cyclosporine, he is on amlodipine, Rocephin, Docusate, magnesium sulfate, clonidine, isosorbide, hydrocodone, he is on Zetia, Levemir. He is on metoprolol. He is on heparin, aspirin, pantoprazole, he is on prednisone, insulin, he is on albuterol treatments, he is on nitroglycerine, maybe this p.r.n., he is on acetaminophen, bisacodyl, polyethylene, Zofran, Tessalon Perles, also antibiotics. He is on Levaquin, which I discontinue and started him on Rocephin 1 g IV q.24 h. PHYSICAL EXAMINATION: VITAL SIGNS: Temperature is 97.1 degrees, pulse rate 57, respiratory rate 20, blood pressure 179/76 saturation is 99%. GENERAL: The patient is alert, responsive, in no acute distress. He has generalized weakness. HEAD AND NECK: Oral exam, no thrush. Eye exam, no icterus. Normocephalic. No facial droop. No neck stiffness. Neck is supple. HEART: Regular. No gallop or murmur. ABDOMEN: Soft. Positive bowel sounds. Nontender. LUNGS: Clear bilaterally. He has a few rhonchi, but no rales. SKIN: No rash. MUSCULOSKELETAL: No effusion or contractures. Legs without cellulitis. PERIPHERAL VASCULAR: No cyanosis or gangrene. GENITOURINARY: He has no Parker. No CVA tenderness. LINES: Line sites without phlebitis. NEUROLOGIC: General weakness. He is alert and responsive. LABORATORY AND DIAGNOSTIC DATA: Laboratory data is as follows. White count 15.3, hemoglobin 12.6, eosinophils are elevated to 4.6%. Creatinine is 1.5. His LFTs were noted. White count previously was as high as now 15.3, hemoglobin 12.6. UA had 15 to 20 RBCs, 5 to 10 white blood cells, 1+ leukocyte esterase. Creatinine was 2.0, now it is currently 1.5. Chest x-ray has been negative for consolidation x2. MRI of the brain showed no acute bleed. Blood cultures negative to date. Influenza screen was negative. ASSESSMENT AND PLAN: 1. The patient has leukocytosis, rule out occult sepsis. The patient had upper respiratory infection, bronchitis with cough and congestion. However, chest x-ray was negative for pneumonia. Antibiotics to be continued on Rocephin 1 gram IV q.24 h., which he does not have suggestive for acute kidney injury. Continue Rocephin. Check urine culture. Check final blood cultures. Continue pulmonary treatment. If the leukocytosis persists, consider further imaging such as CT scanning, white blood cell scan. Continue Rocephin for now. Check followup labs. Check final cultures. Watch white cell count. Watch creatinine closely. 2. Encephalopathy. 3. Acute kidney injury. 4. Dehydration. 5. History of renal transplant. 6. Immunosuppression. 7. Cerebrovascular accident with left-sided weakness. 8. Hypertension. 9. Diabetes. 10. Coronary artery disease. 11. Myocardial infarction. 12. Benign prostatic hypertrophy. 13. Percutaneous coronary intervention 14. Past medical history as noted. 15. Allergies to azathioprine. 16. Family history noncontributory. 17. Social history negative. 18. MAR was noted. 19. Case discussed with RN. 20. Case discussed with Dr. Ordonez. 21. Continue treatment per primary consultants. 22. Notes and records were noted. 23. Orders were entered. Carl Nelson M.D. DR: Chace JOB#: [id number] CC:
[2018-01-20 04:00] VITALS: BP 150/67
[2018-01-20] MEDS: NovoLOG Insulin Flexpen SUBQ SCH ×2 (06:30→12:17)
[2018-01-20 08:00] VITALS: BP 178/92
[2018-01-20 08:26] LABS: BASOPHILS % (AUTO) 0.7 % (0.0-2.0); EOSINOPHILS % (AUTO) 5.1 % (0.0-3.0); HEMATOCRIT 32.8 % (42.0-52.0); HEMOGLOBIN 11.5 G/DL (14.2-18.0); LYMPHOCYTES % (AUTO) 22.6 % (20.0-45.0); MEAN CORPUSCULAR VOLUME 88 FL (80-99); MONOCYTES % (AUTO) 8.6 % (1.0-10.0); NEUTROPHILS % (AUTO) 63.1 % (45.0-75.0); PLATELET COUNT 197 K/UL (150-450); RED BLOOD COUNT 3.73 M/UL (4.70-6.10); RED CELL DISTRIBUTION WIDTH 12.8 % (11.6-14.8); WHITE BLOOD COUNT 13.8 K/UL (4.8-10.8)
[2018-01-20] MEDS: Docusate 100mg cap ORAL SCH ×2 (08:26→12:15)
[2018-01-20] MEDS: Aspirin Baby 81mg ORAL SCH (08:26)
[2018-01-20] MEDS: Metoprolol 25mg tab ORAL SCH (08:27)
[2018-01-20] MEDS: HYDROcodone/Acetamin 10/325 tab ORAL PRN (08:27)
[2018-01-20] MEDS: Tamsulosin 0.4mg cap ORAL SCH (08:27)
[2018-01-20] MEDS: Imdur 30mg tab ORAL SCH (08:28)
[2018-01-20] MEDS: Heparin 5000 units/ml inj SUBQ SCH (08:28)
[2018-01-20] MEDS: cycloSPORINE 100mg cap ORAL SCH (08:28)
[2018-01-20] MEDS: BRILINTA 90 MG ORAL SCH (08:29)
[2018-01-20] MEDS: Levemir Flexpen SUBQ SCH (08:30)
[2018-01-20 09:05] LABS: ALANINE AMINOTRANSFERASE 48 U/L (12-78); ALBUMIN 2.8 G/DL (3.4-5.0); ALBUMIN/GLOBULIN RATIO 0.8 (1.0-2.7); ALKALINE PHOSPHATASE 67 U/L (46-116); ANION GAP 8 mmol/L (5-15); ASPARTATE AMINO TRANSFERASE 47 U/L (15-37); BILIRUBIN,TOTAL 0.5 MG/DL (0.2-1.0); BLOOD UREA NITROGEN 38 mg/dL (7-18); CALCIUM 9.2 MG/DL (8.5-10.1); CARBON DIOXIDE 25 MMOL/L (21-32); CHLORIDE 106 MMOL/L (98-107); CREATININE 1.6 MG/DL (0.55-1.30); FERRITIN 58 NG/ML (8-388); PHOSPHORUS 3.7 MG/DL (2.5-4.9); POTASSIUM 3.4 MMOL/L (3.5-5.1); SODIUM 139 MMOL/L (136-145)
--- NOTE | 2018-01-20 10:11 | Urology Progress Note ---
Assessment/Plan Assessment/Plan 1. Benign prostatic hypertrophy. 2. Urinary retention. 3. Pyuria, rule out urinary tract infection. 4. Hematuria. 5. Proteinuria. 6. Acute kidney injury. 7. History of inguinal hernia. 8. History of hydronephrosis of transplant kidney. monitor clinically flomax bid and proscar abx as ordered f/u on urine cx cysto later Subjective Allergies: Coded Allergies: AZATHIOPRINE (Verified Allergy, Unknown, 11/20/10) Subjective all noted, voiding Objective Last 24 Hour Vital Signs Date Time Temp Pulse Resp B/P (MAP) Pulse Ox O2 Delivery O2 Flow Rate FiO2 01/20/18 08:28 178/75 01/20/18 08:27 74 178/75 01/20/18 08:26 74 178/78 01/20/18 08:00 97.0 69 20 178/92 99 Nasal Cannula 2.0 97.0 01/20/18 08:00 79 01/20/18 07:10 Nasal Cannula 2.0 28 01/20/18 07:10 94 Nasal Cannula 2.0 28 01/20/18 07:00 74 16 Nasal Cannula 2.0 28 01/20/18 04:00 97.7 60 18 150/67 99 Nasal Cannula 2.0 97.7 01/20/18 04:00 58 01/20/18 00:00 63 01/20/18 00:00 97.2 67 22 169/76 99 Nasal Cannula 2.0 97.2 01/19/18 20:59 62 160/76 01/19/18 20:59 62 160/76 01/19/18 20:00 60 01/19/18 20:00 Nasal Cannula 2.0 28 01/19/18 20:00 97.7 62 18 160/76 99 97.7 01/19/18 20:00 95 Nasal Cannula 2.0 28 01/19/18 19:30 70 16 Nasal Cannula 2.0 28 01/19/18 16:00 62 01/19/18 16:00 96.8 64 20 176/78 100 Room Air 96.8 01/19/18 15:37 60 179/76 01/19/18 13:30 21 01/19/18 13:30 82 18 100 Room Air 21 01/19/18 12:00 97.1 57 20 179/76 99 Room Air 01/19/18 12:00 57 01/19/18 10:49 180/90 Intake and Output 01/19/18 01/20/18 19:00 07:00 Intake Total 472 ml 720 ml Output Total 1200 ml Balance 472 ml -480 ml Intake Oral 472 ml 720 ml Output Urine Total 1200 ml # Voids 4 3 # Bowel Movements 2 1 Microbiology Date/Time Source Procedure Growth Status 01/17/18 20:30 Blood Blood Culture - Preliminary NO GROWTH AFTER 48 HOURS Resulted 01/17/18 20:30 Nasal Nares Influenza Types A,B Antigen (SUKHJINDER) - Final Complete 01/19/18 02:00 Urine,Clean Catch Urine Culture - Preliminary NO GROWTH Resulted Current Medications Medications (Trade) Dose Ordered Sig/Lauren Route PRN Reason Start Time Stop Time Status Last Admin Dose Admin Acetaminophen (Tylenol) 650 mg Q4H PRN RECTAL Mild Pain (Pain Scale 1-3) 01/17/18 22:30 02/16/18 22:29 Acetaminophen (Tylenol) 650 mg Q4H PRN RECTAL fever 01/17/18 22:30 02/16/18 22:29 Acetaminophen/ Hydrocodone Bitart ([place] 10/325) 1 tab Q4H PRN ORAL For moderate to severe Pain 01/19/18 03:15 01/26/18 03:14 01/20/18 08:27 Albuterol/ Ipratropium (Albuterol/ Ipratropium) 3 ml Q4H PRN HHN Shortness of Breath 01/17/18 22:30 01/22/18 22:29 01/19/18 13:30 Amlodipine Besylate (Norvasc) 5 mg BID ORAL 01/19/18 21:00 02/18/18 20:59 01/20/18 08:26 Aspirin (ASA) 81 mg DAILY ORAL 01/18/18 09:00 02/17/18 08:59 01/20/18 08:26 Benzonatate (Tessalon Perles) 100 mg TID PRN ORAL cough 01/17/18 22:30 02/16/18 22:29 01/18/18 08:53 Bisacodyl (Dulcolax) 10 mg DAILYPRN PRN RECTAL Constipation 01/17/18 22:30 02/16/18 22:29 Ceftriaxone Sodium 1 gm/ Sodium Chloride 55 ml @ 110 mls/hr Q24H IVPB 2/20/18 17:00 01/26/18 16:59 01/19/18 17:02 Clonidine HCl (Catapres Tab) 0.1 mg Q4H PRN ORAL FOR SBP>170 01/19/18 14:45 02/17/18 13:59 Cyclosporine (SandIMMUNE) 100 mg Q12HR ORAL 01/19/18 21:00 02/17/18 20:59 01/20/18 08:28 Dextrose (Dextrose 50%) STAT PRN IV Hypoglycemia 01/17/18 22:45 02/16/18 22:44 Docusate Sodium (Colace) 100 mg TID ORAL 01/19/18 18:00 02/17/18 08:59 01/20/18 08:26 EZETIMIBE (Zetia) 10 mg BEDTIME ORAL 01/18/18 21:00 02/17/18 20:59 01/19/18 21:11 Finasteride (Proscar) 5 mg QHS ORAL 01/19/18 20:00 02/18/18 19:59 01/19/18 20:59 Heparin Sodium (Porcine) (Heparin 5000 units/ml) 5,000 units EVERY 12 HOURS SUBQ 01/18/18 09:00 02/17/18 08:59 01/19/18 21:00 Insulin Aspart (NovoLOG) BEFORE MEALS AND HS SUBQ 01/18/18 06:30 02/17/18 06:29 01/19/18 21:01 Insulin Detemir (Levemir) 22 units BID SUBQ 01/18/18 23:00 02/17/18 22:59 01/20/18 08:30 Isosorbide Mononitrate (Imdur) 90 mg DAILY ORAL 01/19/18 09:00 02/18/18 08:59 01/20/18 08:28 Metoprolol Tartrate (Lopressor) 25 mg EVERY 12 HOURS ORAL 01/18/18 21:00 02/17/18 20:59 01/20/18 08:27 Nitroglycerin (Ntg) 0.4 mg Q5M PRN SL Prn Chest Pain 01/17/18 22:30 02/16/18 22:29 Ondansetron HCl (Zofran) 4 mg Q6H PRN IVP Nausea & Vomiting 01/17/18 22:30 02/16/18 22:29 Pantoprazole (Protonix) 40 mg DAILY ORAL 01/18/18 09:00 02/17/18 08:59 01/20/18 08:27 Patient Own Medication (Patient's Own Med) 1 ea Q12HR ORAL 01/18/18 12:00 02/17/18 11:59 01/19/18 21:01 Polyethylene Glycol (Miralax) 17 gm DAILYPRN PRN ORAL Constipation 01/17/18 22:30 02/16/18 22:29 Prednisone (predniSONE) 5 mg DAILY ORAL 01/18/18 09:00 02/17/18 08:59 01/20/18 08:28 Sitagliptin Phosphate (Januvia) 100 mg DAILY ORAL 01/18/18 09:00 02/17/18 08:59 01/20/18 08:26 Tamsulosin HCl (Flomax) 0.4 mg BID ORAL 01/19/18 21:00 02/18/18 20:59 01/20/18 08:27 Laboratory Tests 01/20/18 06:50: White Blood Count 13.8H, Red Blood Count 3.73L, Hemoglobin 11.5L, Hematocrit 32.8L, Mean Corpuscular Volume 88, Mean Corpuscular Hemoglobin 30.8, Mean Corpuscular Hemoglobin Concent 35.0, Red Cell Distribution Width 12.8, Platelet Count 197, Mean Platelet Volume 8.5, Neutrophils (%) (Auto) 63.1, Lymphocytes (% ) (Auto) 22.6, Monocytes (%) (Auto) 8.6, Eosinophils (%) (Auto) 5.1H, Basophils (%) (Auto) 0.7, Sodium Level 139, Potassium Level 3.4L, Chloride Level 106, Carbon Dioxide Level 25, Anion Gap 8, Blood Urea Nitrogen 38H, Creatinine 1.6H, Estimat Glomerular Filtration Rate , Glucose Level 92, Uric Acid 5.8, Calcium Level 9.2, Phosphorus Level 3.7, Magnesium Level 2.0, Ferritin 58, Total Bilirubin 0.5, Aspartate Amino Transf (AST/SGOT) 47H, Alanine Aminotransferase ( ALT/SGPT) 48, Alkaline Phosphatase 67, Troponin I 0.075H, Pro-B-Type Natriuretic Peptide 774H, Total Protein 6.5, Albumin 2.8L, Globulin 3.7, Albumin /Globulin Ratio 0.8L, Vitamin B12 Level 716, Folate 14.6 Height (Feet): 5 Height (Inches): 6.00 Weight (Pounds): 158 Objective exam stable AJITH MILLS Jan 20, 2018 10:11
--- NOTE | 2018-01-20 11:07 | Infectious Diseases Prog Note ---
Assessment/Plan Assessment/Plan A) 1) possible uti, uri/bronchitis, chest x-ray negative x 2 and influenza negative 2) leukocytosis, ? occult sepsis, tomas/dehydration - leukocytosis better, cultures negative so far, ? secondary to dehydration 3) renal transplant, dm, htn, cad, stent P) 1) rocephin 2) f/u urine culture and labs, watch wbc and cr 3) d/w family Subjective Constitutional: Denies: fever Respiratory: Denies: shortness of breath Cardiovascular: Denies: chest pain Genitourinary: Reports: other - no peterson Neurologic: Denies: headache Psychiatric: Denies: depression Allergies: Coded Allergies: AZATHIOPRINE (Verified Allergy, Unknown, 11/20/10) Objective Vital Signs Last 24 Hour Vital Signs Date Time Temp Pulse Resp B/P (MAP) Pulse Ox O2 Delivery O2 Flow Rate FiO2 01/20/18 08:28 178/75 01/20/18 08:27 74 178/75 01/20/18 08:26 74 178/78 01/20/18 08:00 97.0 69 20 178/92 99 Nasal Cannula 2.0 97.0 01/20/18 08:00 79 01/20/18 07:10 Nasal Cannula 2.0 28 01/20/18 07:10 94 Nasal Cannula 2.0 28 01/20/18 07:00 74 16 Nasal Cannula 2.0 28 01/20/18 04:00 97.7 60 18 150/67 99 Nasal Cannula 2.0 97.7 01/20/18 04:00 58 01/20/18 00:00 63 01/20/18 00:00 97.2 67 22 169/76 99 Nasal Cannula 2.0 97.2 01/19/18 20:59 62 160/76 01/19/18 20:59 62 160/76 01/19/18 20:00 60 01/19/18 20:00 Nasal Cannula 2.0 28 01/19/18 20:00 97.7 62 18 160/76 99 97.7 01/19/18 20:00 95 Nasal Cannula 2.0 28 01/19/18 19:30 70 16 Nasal Cannula 2.0 28 01/19/18 16:00 62 01/19/18 16:00 96.8 64 20 176/78 100 Room Air 96.8 01/19/18 15:37 60 179/76 01/19/18 13:30 21 01/19/18 13:30 82 18 100 Room Air 21 01/19/18 12:00 97.1 57 20 179/76 99 Room Air 01/19/18 12:00 57 Height (Feet): 5 Height (Inches): 6.00 Weight (Pounds): 158 General Appearance: no acute distress HEENT: normocephalic, atraumatic, anicteric Respiratory/Chest: lungs clear, normal breath sounds, no respiratory distress Cardiovascular: normal rate, regular rhythm Abdomen: normal bowel sounds, soft, non tender, no organomegaly Extremities: no cyanosis Skin: no rash Neurologic/Psychiatric: 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2-18.0) L Hematocrit 32.8 % (42.0-52.0) L Mean Corpuscular Volume 88 FL (80-99) Mean Corpuscular Hemoglobin 30.8 PG (27.0-31.0) Mean Corpuscular Hemoglobin Concent 35.0 G/DL (32.0-36.0) Red Cell Distribution Width 12.8 % (11.6-14.8) Platelet Count 197 K/UL (150-450) Mean Platelet Volume 8.5 FL (6.5-10.1) Neutrophils (%) (Auto) 63.1 % (45.0-75.0) Lymphocytes (%) (Auto) 22.6 % (20.0-45.0) Monocytes (%) (Auto) 8.6 % (1.0-10.0) Eosinophils (%) (Auto) 5.1 % (0.0-3.0) H Basophils (%) (Auto) 0.7 % (0.0-2.0) Sodium Level 139 MMOL/L (136-145) Potassium Level 3.4 MMOL/L (3.5-5.1) L Chloride Level 106 MMOL/L (98-107) Carbon Dioxide Level 25 MMOL/L (21-32) Anion Gap 8 mmol/L (5-15) Blood Urea Nitrogen 38 mg/dL (7-18) H Creatinine 1.6 MG/DL (0.55-1.30) H Estimat Glomerular Filtration Rate mL/min (>60) Glucose Level 92 MG/DL (74-106) Uric Acid 5.8 MG/DL (2.6-7.2) Calcium Level 9.2 MG/DL (8.5-10.1) Phosphorus Level 3.7 MG/DL (2.5-4.9) Magnesium Level 2.0 MG/DL (1.8-2.4) Ferritin 58 NG/ML (8-388) Total Bilirubin 0.5 MG/DL (0.2-1.0) Aspartate Amino Transf (AST/SGOT) 47 U/L (15-37) H Alanine Aminotransferase (ALT/SGPT) 48 U/L (12-78) Alkaline Phosphatase 67 U/L (46-116) Troponin I 0.075 ng/mL (0.000-0.056) Pro-B-Type Natriuretic Peptide 774 pg/mL (0-125) H Total Protein 6.5 G/DL (6.4-8.2) Albumin 2.8 G/DL (3.4-5.0) L Globulin 3.7 g/dL Albumin/Globulin Ratio 0.8 (1.0-2.7) L Vitamin B12 Level 716 PG/ML (193-986) Folate 14.6 NG/ML (8.6-58.9) Current Medications Medications (Trade) Dose Ordered Sig/Lauren Route PRN Reason Start Time Stop Time Status Last Admin Dose Admin Acetaminophen (Tylenol) 650 mg Q4H PRN RECTAL Mild Pain (Pain Scale 1-3) 01/17/18 22:30 02/16/18 22:29 Acetaminophen (Tylenol) 650 mg Q4H PRN RECTAL fever 01/17/18 22:30 3/20/18 22:29 Acetaminophen/ Hydrocodone Bitart ([place] 10/325) 1 tab Q4H PRN ORAL For moderate to severe Pain 01/19/18 03:15 01/26/18 03:14 01/20/18 08:27 Albuterol/ Ipratropium (Albuterol/ Ipratropium) 3 ml Q4H PRN HHN Shortness of Breath 01/17/18 22:30 01/22/18 22:29 01/19/18 13:30 Amlodipine Besylate (Norvasc) 5 mg BID ORAL 01/19/18 21:00 02/18/18 20:59 01/20/18 08:26 Aspirin (ASA) 81 mg DAILY ORAL 01/18/18 09:00 02/17/18 08:59 01/20/18 08:26 Benzonatate (Tessalon Perles) 100 mg TID PRN ORAL cough 01/17/18 22:30 02/16/18 22:29 01/18/18 08:53 Bisacodyl (Dulcolax) 10 mg DAILYPRN PRN RECTAL Constipation 01/17/18 22:30 02/16/18 22:29 Ceftriaxone Sodium 1 gm/ Sodium Chloride 55 ml @ 110 mls/hr Q24H IVPB 01/19/18 17:00 01/26/18 16:59 01/19/18 17:02 Clonidine HCl (Catapres Tab) 0.1 mg Q4H PRN ORAL FOR SBP>170 01/19/18 14:45 02/17/18 13:59 Cyclosporine (SandIMMUNE) 100 mg Q12HR ORAL 01/19/18 21:00 02/17/18 20:59 01/20/18 08:28 Dextrose (Dextrose 50%) STAT PRN IV Hypoglycemia 01/17/18 22:45 02/16/18 22:44 Docusate Sodium (Colace) 100 mg TID ORAL 01/19/18 18:00 02/17/18 08:59 01/20/18 08:26 EZETIMIBE (Zetia) 10 mg BEDTIME ORAL 01/18/18 21:00 02/17/18 20:59 01/19/18 21:11 Finasteride (Proscar) 5 mg QHS ORAL 01/19/18 20:00 02/18/18 19:59 01/19/18 20:59 Heparin Sodium (Porcine) (Heparin 5000 units/ml) 5,000 units EVERY 12 HOURS SUBQ 01/18/18 09:00 02/17/18 08:59 01/19/18 21:00 Insulin Aspart (NovoLOG) BEFORE MEALS AND HS SUBQ 01/18/18 06:30 02/17/18 06:29 01/19/18 21:01 Insulin Detemir (Levemir) 22 units BID SUBQ 01/18/18 23:00 02/17/18 22:59 01/20/18 08:30 Isosorbide Mononitrate (Imdur) 90 mg DAILY ORAL 01/19/18 09:00 02/18/18 08:59 01/20/18 08:28 Metoprolol Tartrate (Lopressor) 25 mg EVERY 12 HOURS ORAL 01/18/18 21:00 02/17/18 20:59 01/20/18 08:27 Nitroglycerin (Ntg) 0.4 mg Q5M PRN SL Prn Chest Pain 01/17/18 22:30 02/16/18 22:29 Ondansetron HCl (Zofran) 4 mg Q6H PRN IVP Nausea & Vomiting 01/17/18 22:30 02/16/18 22:29 Pantoprazole (Protonix) 40 mg DAILY ORAL 01/18/18 09:00 02/17/18 08:59 01/20/18 08:27 Patient Own Medication (Patient's Own Med) 1 ea Q12HR ORAL 01/18/18 12:00 02/17/18 11:59 01/19/18 21:01 Polyethylene Glycol (Miralax) 17 gm DAILYPRN PRN ORAL Constipation 01/17/18 22:30 02/16/18 22:29 Prednisone (predniSONE) 5 mg DAILY ORAL 01/18/18 09:00 02/17/18 08:59 01/20/18 08:28 Sitagliptin Phosphate (Januvia) 100 mg DAILY ORAL 01/18/18 09:00 02/17/18 08:59 01/20/18 08:26 Tamsulosin HCl (Flomax) 0.4 mg BID ORAL 01/19/18 21:00 02/18/18 20:59 01/20/18 08:27 MONICA BERRY Jan 20, 2018 11:06
--- NOTE | 2018-01-20 11:41 | Nephrology Progress Note ---
Assessment/Plan Problem List: (1) MALGORZATA (acute kidney injury) (2) ESRD s/p kidney transplant (3) Diabetic nephropathy Assessment Patient admitted with initial Cr of 2 and now down to 1.6 after hydration admitted for sepsis ( Pneumonia) and high lactic level and encephalopathy High troponin level ( NSTEMI ) Anemia of Chronic disease Other history: (1) s/p ESRD s/p kidney transplant, off dialysis now (2) HTN (3) DM2 (diabetes mellitus, type 2) (4) Diabetic neuropathy (5) H/O: CVA (cerebrovascular accident) (6) CAD s/p PCI Plan Plan: Adjust BP meds- add Procardia Monitor renal parameters and lytes- per ID continu anti rejection meds per orders Objective Objective Last 24 Hour Vital Signs Date Time Temp Pulse Resp B/P (MAP) Pulse Ox O2 Delivery O2 Flow Rate FiO2 01/20/18 08:28 178/75 01/20/18 08:27 74 178/75 01/20/18 08:26 74 178/78 01/20/18 08:00 97.0 69 20 178/92 99 Nasal Cannula 2.0 97.0 01/20/18 08:00 79 01/20/18 07:10 Nasal Cannula 2.0 28 01/20/18 07:10 94 Nasal Cannula 2.0 28 01/20/18 07:00 74 16 Nasal Cannula 2.0 28 01/20/18 04:00 97.7 60 18 150/67 99 Nasal Cannula 2.0 97.7 01/20/18 04:00 58 01/20/18 00:00 63 01/20/18 00:00 97.2 67 22 169/76 99 Nasal Cannula 2.0 97.2 01/19/18 20:59 62 160/76 01/19/18 20:59 62 160/76 01/19/18 20:00 60 01/19/18 20:00 Nasal Cannula 2.0 28 01/19/18 20:00 97.7 62 18 160/76 99 97.7 01/19/18 20:00 95 Nasal Cannula 2.0 28 01/19/18 19:30 70 16 Nasal Cannula 2.0 28 01/19/18 16:00 62 01/19/18 16:00 96.8 64 20 176/78 100 Room Air 96.8 2/20/18 15:37 60 179/76 2/20/18 13:30 21 01/19/18 13:30 82 18 100 Room Air 21 01/19/18 12:00 97.1 57 20 76 99 Room Air 01/19/18 12:00 57 Intake and Output 01/19/18 01/20/18 19:00 07:00 Intake Total 472 ml 720 ml Output Total 1200 ml Balance 472 ml -480 ml Intake Oral 472 ml 720 ml Output Urine Total 1200 ml # Voids 4 3 # Bowel Movements 2 1 Laboratory Tests 01/20/18 06:50: White Blood Count 13.8H, Red Blood Count 3.73L, Hemoglobin 11.5L, Hematocrit 32.8L, Mean Corpuscular Volume 88, Mean Corpuscular Hemoglobin 30.8, Mean Corpuscular Hemoglobin Concent 35.0, Red Cell Distribution Width 12.8, Platelet Count 197, Mean Platelet Volume 8.5, Neutrophils (%) (Auto) 63.1, Lymphocytes (% ) (Auto) 22.6, Monocytes (%) (Auto) 8.6, Eosinophils (%) (Auto) 5.1H, Basophils (%) (Auto) 0.7, Sodium Level 139, Potassium Level 3.4L, Chloride Level 106, Carbon Dioxide Level 25, Anion Gap 8, Blood Urea Nitrogen 38H, Creatinine 1.6H, Estimat Glomerular Filtration Rate , Glucose Level 92, Uric Acid 5.8, Calcium Level 9.2, Phosphorus Level 3.7, Magnesium Level 2.0, Ferritin 58, Total Bilirubin 0.5, Aspartate Amino Transf (AST/SGOT) 47H, Alanine Aminotransferase ( ALT/SGPT) 48, Alkaline Phosphatase 67, Troponin I 0.075H, Pro-B-Type Natriuretic Peptide 774H, Total Protein 6.5, Albumin 2.8L, Globulin 3.7, Albumin /Globulin Ratio 0.8L, Vitamin B12 Level 716, Folate 14.6 Height (Feet): 5 Height (Inches): 6.00 Weight (Pounds): 158 General Appearance: no apparent distress Cardiovascular: normal rate Respiratory/Chest: decreased breath sounds Abdomen: distended VAISHNAVI ERNANDEZ Jan 20, 2018 11:41
[2018-01-20 12:00] VITALS: BP 170/85
[2018-01-20 12:16] VITALS: BP 170/75
[2018-01-20 12:58] LABS: % IRON SATURATION 29 % (15-50); IRON 86 ug/dL (50-175); TOTAL IRON BINDING CAPACITY 298 ug/dL (250-450)
[2018-01-20] MEDS ORDERED: CEFTIN250 MG/5 M PO (14:23)
--- NOTE | 2018-01-20 14:23 | Discharge Instructions ---
Discharge Instructions Discharge Instructions Follow up with: primary care doctor in 1 week Call MD/Return to Hospital if: fevers, chest pain, SOB, confusion Services at Discharge: home health services Activity: resume normal activities For Congestive Heart Failure Reminder Report to your physician any weight gain of 5 pounds or more in one week. Mery Gaston M.D. Jan 20, 2018 14:23
[2018-01-20] MEDS ORDERED: LOPRESSOR25 M1 ORAL (14:33)
[2018-01-20] MEDS ORDERED: PROCARDIA XL30 MG ORAL (14:33)
[2018-01-20] MEDS ORDERED: ISOSORBIDE MONO30 M1 ORAL (14:34)
[2018-01-20] MEDS ORDERED: Tubing IV Secondary IV ONE (15:49)
--- NOTE | 2018-01-20 16:16 | Cardiac Electrophysiology PN ---
Assessment/Plan Assessment/Plan 1. Elevated troponin in a patient with history of coronary artery disease and prior stent placement. Could be due to renal failure as the creatinine was 2. No chest pain. Also had CK of more than 1500 that can contribute to elevated troponin. His EKG showed no acute ischemia. Echocardiogram showed normal left ventricular systolic function. Continue Lopressor 25 bid, aspirin and Imdur 120 mg daily Nuclear stress test after PNA resolves and WBC normalizes. Can be done as out patient 2. Accelerated hypertension. On Norvasc, Lopressor and Imdur 120 mg 3. Rhabdomyolysis, on IV fluids. 4. Renal failure. The patient is status post transplant, on cyclosporine and prednisone. 5. Community-acquired pneumonia. On antibiotic per Dr. Nelson. Subjective Subjective No chest pain or SOB or arrhythmias reported Objective Last 24 Hour Vital Signs Date Time Temp Pulse Resp B/P (MAP) Pulse Ox O2 Delivery O2 Flow Rate FiO2 01/20/18 12:16 74 170/75 01/20/18 12:00 98.2 62 20 170/85 100 Nasal Cannula 2.0 98.2 01/20/18 12:00 63 01/20/18 08:28 178/75 01/20/18 08:27 74 178/75 01/20/18 08:26 74 178/78 01/20/18 08:00 97.0 69 20 178/92 99 Nasal Cannula 2.0 97.0 01/20/18 08:00 79 01/20/18 07:10 Nasal Cannula 2.0 28 01/20/18 07:10 94 Nasal Cannula 2.0 28 01/20/18 07:00 74 16 Nasal Cannula 2.0 28 01/20/18 04:00 97.7 60 18 150/67 99 Nasal Cannula 2.0 97.7 01/20/18 04:00 58 01/20/18 00:00 63 01/20/18 00:00 97.2 67 22 169/76 99 Nasal Cannula 2.0 97.2 01/19/18 20:59 62 160/76 18 20:59 62 160/76 01/19/18 20:00 60 01/19/18 20:00 Nasal Cannula 2.0 28 01/19/18 20:00 97.7 62 18 160/76 99 97.7 01/19/18 20:00 95 Nasal Cannula 2.0 28 01/19/18 19:30 70 16 Nasal Cannula 2.0 28 Intake and Output 01/19/18 01/20/18 19:00 07:00 Intake Total 472 ml 720 ml Output Total 1200 ml Balance 472 ml -480 ml Intake Oral 472 ml 720 ml Output Urine Total 1200 ml # Voids 4 3 # Bowel Movements 2 1 Laboratory Tests Test 01/20/18 06:10 01/20/18 06:50 Iron Level 86 ug/dL (50-175) Total Iron Binding Capacity 298 ug/dL (250-450) Percent Iron Saturation 29 % (15-50) Unsaturated Iron Binding 212 ug/dL (112-346) White Blood Count 13.8 K/UL (4.8-10.8) H Red Blood Count 3.73 M/UL (4.70-6.10) L Hemoglobin 11.5 G/DL (14.2-18.0) L Hematocrit 32.8 % (42.0-52.0) L Mean Corpuscular Volume 88 FL (80-99) Mean Corpuscular Hemoglobin 30.8 PG (27.0-31.0) Mean Corpuscular Hemoglobin Concent 35.0 G/DL (32.0-36.0) Red Cell Distribution Width 12.8 % (11.6-14.8) Platelet Count 197 K/UL (150-450) Mean Platelet Volume 8.5 FL (6.5-10.1) Neutrophils (%) (Auto) 63.1 % (45.0-75.0) Lymphocytes (%) (Auto) 22.6 % (20.0-45.0) Monocytes (%) (Auto) 8.6 % (1.0-10.0) Eosinophils (%) (Auto) 5.1 % (0.0-3.0) H Basophils (%) (Auto) 0.7 % (0.0-2.0) Sodium Level 139 MMOL/L (136-145) Potassium Level 3.4 MMOL/L (3.5-5.1) L Chloride Level 106 MMOL/L (98-107) Carbon Dioxide Level 25 MMOL/L (21-32) Anion Gap 8 mmol/L (5-15) Blood Urea Nitrogen 38 mg/dL (7-18) H Creatinine 1.6 MG/DL (0.55-1.30) H Estimat Glomerular Filtration Rate mL/min (>60) Glucose Level 92 MG/DL (74-106) Uric Acid 5.8 MG/DL (2.6-7.2) Calcium Level 9.2 MG/DL (8.5-10.1) Phosphorus Level 3.7 MG/DL (2.5-4.9) Magnesium Level 2.0 MG/DL (1.8-2.4) Ferritin 58 NG/ML (8-388) Total Bilirubin 0.5 MG/DL (0.2-1.0) Aspartate Amino Transf (AST/SGOT) 47 U/L (15-37) H Alanine Aminotransferase (ALT/SGPT) 48 U/L (12-78) Alkaline Phosphatase 67 U/L (46-116) Troponin I 0.075 ng/mL (0.000-0.056) Pro-B-Type Natriuretic Peptide 774 pg/mL (0-125) H Total Protein 6.5 G/DL (6.4-8.2) Albumin 2.8 G/DL (3.4-5.0) L Globulin 3.7 g/dL Albumin/Globulin Ratio 0.8 (1.0-2.7) L Vitamin B12 Level 716 PG/ML (193-986) Folate 14.6 NG/ML (8.6-58.9) Microbiology Date/Time Source Procedure Growth Status 01/17/18 20:30 Blood Blood Culture - Preliminary NO GROWTH AFTER 48 HOURS Resulted 01/17/18 20:15 Blood Blood Culture - Preliminary NO GROWTH AFTER 48 HOURS Resulted 01/17/18 20:30 Nasal Nares Influenza Types A,B Antigen (SUKHJINDER) - Final Complete 01/19/18 02:00 Urine,Clean Catch Urine Culture - Preliminary NO GROWTH Resulted Objective HEAD AND NECK: Showed no JVD. LUNGS: Clear. CARDIOVASCULAR: Regular S1 and S2 with no gallop or murmur. ABDOMEN: Soft and nontender. EXTREMITIES: No pitting edema. SITA SERNA Jan 20, 2018 16:16
--- NOTE | 2018-01-22 11:13 | Discharge Summary ---
Discharge Summary Hospital Course Date of Admission Jan 17, 2018 at 22:19 Date of Discharge Jan 20, 2018 at 15:50 Admitting Diagnosis SOB, WEAKNESS HPI Fidencio Munoz is a 72 year old male who was admitted on Jan 17, 2018 at 22:19 for Shortness Of Breath,Weakness Hospital Course [id number] Discharge Discharge Disposition Patient was discharged to Home with hh Discharge Diagnoses: Discharge Instructions Discharge Instructions Follow up with: primary care doctor in 1 week Call MD/Return to Hospital if: fevers, chest pain, SOB, confusion Services Upon Discharge: home health services Activity: resume normal activities Brittney Byrne NP Jan 22, 2018 11:13
--- NOTE | 2018-01-22 22:45 | Discharge Summary 2 SIG ---
DATE OF ADMISSION: 01/17/2018 DATE OF DISCHARGE: 01/20/2018 CONSULTANTS: 1. Omkar Vera M.D. 2. Jf Cortez M.D. 3. Jeremy Tang M.D. 4. Abiodun Pineda M.D. 5. Carl Nelson M.D. HISTORY OF PRESENT ILLNESS:The patient is a 72-year-old male with past medical history of end-stage renal disease, status post kidney transplant 30 years ago, CVA with residual left-sided weakness, hypertension, insulin-dependent diabetes mellitus type 2, coronary artery disease, status post PCI with stents placed two to three weeks ago, presented to ED for complaints of altered mental status. noted the patient to be altered and according to son, the patient is usually alert and oriented. Family noted he had been increasingly disoriented. He had been taking his medications and also was complaining of cough and congestion for the past few days. Denied any chest pain, nausea, vomiting, fever, or chills. REASON FOR ADMISSION: On evaluation at ED, blood work showed elevated WBC to 11.3. BUN was 50, creatinine 2.0. Troponin was 0.065. Total CK was 1547. EKG was in normal sinus rhythm. Chest x-ray showed mild cardiomegaly with no acute process. Head CT showed chronic age-related changes with no acute intracranial bleed or mass effect. He was given IV fluids and Levaquin. BRIEF HOSPITAL COURSE: He was admitted to the telemetry for evaluation of sepsis , lactic acidosis, toxic metabolic encephalopathy, pneumonia, NSTEMI, and acute kidney injury. He was given neuro checks. He was seen by Dr. Pineda. MRI of the brain was done and revealed atrophy with bilateral subcortical deep white matter disease in addition to old right frontal infarct. Altered mental status was assessed to be compatible with underlying old structural brain disease in the form of an old right frontal infarct and old bilateral deep white matter disease with superimposed acute infectious process causing encephalopathy. He was continued empirically on Levaquin pending culture results. Influenza screen was negative. Blood and urine culture did not isolate any growth. He was given Rocephin. He had elevated troponins and echocardiogram showed ejection fraction of 60% to 65%. Elevated troponin could be due to renal failure as the patient did not have any chest pain. EKG did not show any signs of acute ischemia and echocardiogram was with normal left ventricular systolic function. He was continued on aspirin and Imdur and Lopressor 25 mg twice a day was added. He had episodes of urinary retention and BPH and had a postvoid residual greater than 500. He was initially recommended to have a Parker placement, however, family and the patient refused. He was eventually able to urinate with greater volumes. Flomax was increased to twice a day and finasteride 5 mg was resumed. He was recommended to follow up with urologist for possible transurethral resection of prostate, which can be done electively as outpatient. Creatinine improved post hydration. Procardia was added for better BP control. He was recommended to undergo nuclear stress test when infection resolve and WBC normalizes. Stress test can be done as outpatient. He was eventually cleared for discharge home with home health. FINAL DIAGNOSES: 1. Acute toxic metabolic encephalopathy. 2. Possible urinary tract infection. 3. Possible upper respiratory infection/bronchitis. 4. Acute kidney injury. 5. Renal transplant. 6. Benign prostatic hypertrophy. 7. Urinary retention. 8. Elevated troponin with history of coronary artery disease and prior stent placement possibly due to renal failure. 9. Accelerated hypertension. 10. Rhabdomyolysis. 11. Old cerebrovascular accident. 12. Diabetes type 2 with diabetic neuropathy. DISCHARGE DISPOSITION: The patient was discharged home with home health. DISCHARGE MEDICATIONS: Refer to medication list. DISCHARGE INSTRUCTIONS: Follow up with PMD in a week for an outpatient stress test and transurethral resection of prostate. Mery Gaston M.D. I have been assigned to dictate discharge summary on this account and I was not involved in the patient's management. Brittney Byrne N.P. DR: SHAYNE JOB#: [id number] CC: ROBERTA
--- NOTE | 2018-02-03 10:27 | Discharge Summary ---
Discharge Summary Hospital Course Date of Admission Jan 17, 2018 at 22:19 Date of Discharge Jan 20, 2018 at 15:50 Admitting Diagnosis SOB, WEAKNESS HPI 72y/o male with pmh of ESRD s/p kidney transplant ~30 years ago, CVA w/ residual L sided weakness, HTN, IDDM type 2, CAD s/p PCI (stents placed ~2-3 weeks ago) who presents with AMS. noted pt to be altered yesterday morning. Per son pt is usual alert and oriented but family noted pt to be increasingly disoriented. He has been taking his medications. C/o cough and congestion x few days. Denies chest pain, f/c, n/v, SOB, abd pain. In ED, pt had CT head which showed old stroke but no new abnormality. Labs showed leukocytosis to 11.3K, MALGORZATA w/ SCr 2.0. CXR w/ concern for pneumonia. Pt given IVFs, levaquin. Consultations Cardiology, Infectious disease, Nephrology, Neurology Hospital Course Pt was admitted and started on empiric antibiotics of possible pneumonia/ bronchitis and/or UTI. Neurology was consulted given AMS. MRI brain showed no acute abnormality but showed old R frontal lobe infarct. Per neuro, pt's AMS likely 2/2 underlying infectious process, metabolic derangements. Pt was given IVFs w/ improvement in SCr. BP medications optimized. Mental status improved to baseline per family prior to d/c. Discharge physical exam: General: alert, cooperative, no distress, appears stated age Head: normocephalic, without obvious abnormality, atraumatic Eyes: conjunctivae/corneas clear. PERRL, EOM's intact Throat: lips, mucosa, and tongue normal. MMM Neck: supple, symmetrical, trachea midline, and no JVD Lungs: clear to auscultation bilaterally Heart: regular rate and rhythm, S1, S2 normal, no murmur, click, rub or gallop Abdomen: soft, non-tender, non-distended, bowel sounds normal; no masses or organomegaly Extremities: extremities normal, atraumatic, no cyanosis or edema Pulses: 2+ and symmetric Skin: skin color, texture, turgor normal; no rashes or lesions Neurologic: grossly normal, no focal deficits Discharge diagnoses: (1) Sepsis ICD Codes: A41.9 - Sepsis, unspecified organism SNOMED: 29888708 Qualifiers: Qualified Codes: A41.9 - Sepsis, unspecified organism (2) Lactic acid acidosis ICD Codes: E87.2 - Acidosis SNOMED: 62595305 (3) Toxic metabolic encephalopathy ICD Codes: G92 - Toxic encephalopathy SNOMED: 973288048 (4) HCAP (healthcare-associated pneumonia) vs acute bronchitis ICD Codes: J18.9 - Pneumonia, unspecified organism SNOMED: 100641705 (5) Elevated troponin possible in setting of renal insufficiency vs NSTEMI (non- ST elevated myocardial infarction) type 2 in setting of sepsis ICD Codes: I21.4 - Non-ST elevation (NSTEMI) myocardial infarction SNOMED: 106644963 (6) MALGORZATA (acute kidney injury) on CKD ICD Codes: N17.9 - Acute kidney failure, unspecified SNOMED: 54896691 (7) Anemia of chronic disease ICD Codes: D63.8 - Anemia in other chronic diseases classified elsewhere SNOMED: 126402662 (8) ESRD s/p kidney transplant (9) CAD s/p PCI (10) H/O: CVA (cerebrovascular accident) Assessment & Plan: R frontal lobe ICD Codes: Z86.73 - Personal history of transient ischemic attack (TIA), and cerebral infarction without residual deficits SNOMED: 282299838 (11) HTN (12) DM2 (diabetes mellitus, type 2) ICD Codes: E11.9 - Type 2 diabetes mellitus without complications SNOMED: 25302772 (13) Diabetic neuropathy ICD Codes: E11.40 - Type 2 diabetes mellitus with diabetic neuropathy, unspecified Discharge Medications New Medications: Cefuroxime Axetil (Ceftin) 250 Mg/5 Ml Susp.recon 250 MG PO BID for 3 Days, #6 ML Isosorbide Mononitrate (Isosorbide Mononitrate Er) 30 Mg Tab.er.24h 90 MG ORAL DAILY, #90 TAB 0 Refills Metoprolol Tartrate (Metoprolol Tartrate) 25 Mg Tablet 25 MG ORAL EVERY 12 HOURS, #60 TAB 0 Refills Nifedipine Xl* (Procardia Xl*) 30 Mg Tab.er.24 60 MG ORAL BID, #60 TAB 0 Refills Continued Medications: Albuterol Sulfate* (Albuterol Sulfate Hhn*) 2.5 Mg/3 Ml Vial.neb Unknown Dose INH Q4H PRN for Shortness of Breath, EA Aspirin* (Aspir 81*) 81 Mg Tablet.dr 81 MG ORAL DAILY, TAB Atorvastatin Calcium* (Atorvastatin Calcium*) 40 Mg Tablet 40 MG ORAL BEDTIME, TAB Benzonatate* (Benzonatate*) 100 Mg Capsule 100 MG ORAL, PERLE Clopidogrel Bisulfate* (Plavix*) 75 Mg Tablet 75 MG ORAL DAILY, TAB Cyclosporine* (Cyclosporine*) 100 Mg Capsule 100 MG PO BID, CAP Cyclosporine* (Cyclosporine*) 100 Mg Capsule 100 MG PO, CAP Ezetimibe (Zetia*) 10 Mg Tablet 10 MG ORAL BEDTIME, TAB Ezetimibe (Zetia*) 10 Mg Tablet 10 MG ORAL BEDTIME, TAB Fludrocortisone Acetate (Fludrocortisone Acetate) 0.1 Mg Tablet 0.1 MG PO, TAB Furosemide* (Lasix*) 20 Mg Tablet 20 MG ORAL DAILY, TAB Gabapentin* (Gabapentin*) 600 Mg Tablet 600 MG ORAL, TAB Guaifenesin/Dextromethorphan (Diabetic Tussin Dm Liquid) 118 Ml Liquid Unknown Dose PO, ML Hydrocodone Bit/Acetaminophen 10-325* (Wilton 10-325*) 1 Each Tablet 1 TAB ORAL Q4H PRN for For Pain, TAB 0 Refills PRN PAIN Insulin Glargine (Lantus) 100 Unit/1 Ml Insuln.pen 0 SUBQ BEDTIME, #1 EA 0 Refills Linaclotide (Linzess) 145 Mcg Capsule 145 MCG PO, CAP Losartan Potassium* (Losartan Potassium*) 50 Mg Tablet 50 MG ORAL DAILY, TAB Magnesium (Magnesium) 250 Mg Tablet 500 MG PO, TAB Pantoprazole* (Pantoprazole*) 40 Mg Tablet.dr 40 MG ORAL DAILY, TAB Prednisone* (Prednisone*) 10 Mg Tablet 5 MG ORAL DAILY, #10 TAB 0 Refills Sitagliptin (Januvia) 100 Mg Tab 100 MG ORAL DAILY, TAB Tamsulosin Hcl (Tamsulosin Hcl*) 0.4 Mg Cap.er.24h 0.4 MG ORAL BEDTIME, CAP Discontinued Medications: Isosorbide Mononitrate (Isosorbide Mononitrate Er) 120 Mg Tab.er.24h 120 MG PO, TAB Discharge Condition Upon Discharge: stable Discharge Disposition Patient was discharged to Home with home health Discharge Diagnoses: Discharge Instructions Discharge Instructions Follow up with: primary care doctor in 1 week Call MD/Return to Hospital if: fevers, chest pain, SOB, confusion Services Upon Discharge: home health services Activity: resume normal activities Mery Gaston M.D. Feb 03, 2018 10:27
== END 2018-01-20 15:50 | disposition home health service (06) | DRG 871 ==
LOC: EMR 20:43 → EDBEDREQ 21:56 → 2E 22:19
DX: A41.9 Sepsis, unspecified organism (principal); G92 Toxic encephalopathy; N17.9 Acute kidney failure, unspecified; M62.82 Rhabdomyolysis; N18.6 End stage renal disease; I69.354 Hemiplegia and hemiparesis following cerebral infarction affecting left non-dominant side; Z94.0 Kidney transplant status; I12.0 Hypertensive chronic kidney disease with stage 5 chronic kidney disease or end stage renal disease; E11.40 Type 2 diabetes mellitus with diabetic neuropathy, unspecified; I10 Essential (primary) hypertension; I25.10 Atherosclerotic heart disease of native coronary artery without angina pectoris; D63.8 Anemia in other chronic diseases classified elsewhere; G47.33 Obstructive sleep apnea (adult) (pediatric); N40.1 Benign prostatic hyperplasia with lower urinary tract symptoms; R33.8 Other retention of urine; Z87.440 Personal history of urinary (tract) infections; Z98.61 Coronary angioplasty status; Z79.4 Long term (current) use of insulin; Z79.82 Long term (current) use of aspirin; Y95 Nosocomial condition; Z23 Encounter for immunization; R79.89 Other specified abnormal findings of blood chemistry; E11.22 Type 2 diabetes mellitus with diabetic chronic kidney disease
CPT/HCPCS: 36415; 70450; 70551; 71045; 80048; 80053; 80061; 81001; 81003; 82306; 82550; 82553; 82607; 82728; 82746; 82962; 83036; 83540; 83550; 83605; 83735; 83880; 84100; 84443; 84484; 84550; 85025; 86140; 86710; 87040; 87081; 87086; 90732; 93005; 93306; 94640; 94664; 94760; 99285; J1815; J7620; J8499; S5561

== ENCOUNTER 2019-06-29 14:04 | Inpatient (IN) | payer MEDICARE, OTHER ==
[~2019-06-29] VITALS: Ht 165.1 cm; Wt 64.4 kg
[~2019-06-29 14:04] MED LIST changes: +ALBUTEROL2.5 MG/3 M INH; +BENZONATATE100 MG ORAL; +CEFTIN250 MG/5 M PO; +DIABETIC TUSSI118 ML PO; +FLUDROCORTISON0.1 MG PO; +GABAPENTIN600 MG ORAL; +ISOSORBIDE MON120 M1 PO; +ISOSORBIDE MONO30 M1 ORAL; +LANTUS SOL100 UNIT/1 SUBQ; +LASIX20 M1 ORAL; +LINZESS145 MCG PO; +LOPRESSOR25 M1 ORAL; +LOSARTAN POTASS50 MG ORAL; +MAGNESIUM250 M3 PO; +NORCO 10-325 T1 EACH ORAL; +PANTOPRAZOLE SO40 MG ORAL; +PREDNISONE10 MG ORAL; +PROCARDIA XL30 MG ORAL
--- NOTE | 2019-06-29 14:04 | NUR ---
ED Nurse Note: Patient brought in by ambulance from home due to low blood pressure. Patient was changing position and became diaphoretic. Patient awake, alert, oriented x 4. No N/V or diaphoreisis noted. Patient has chronic back pain. Patient has hx of UTI and on Zosyn. Patient has 16 Fr F/C with minimal amount of cloudy urine. Patient has IV to right foot 20. Site remained intact without redness. Placed patient on cardiac monitor technician. No ectopy noted. ERMD at bedside and aware of low BP. IV NS running via 20g to RAC
--- NOTE | 2019-06-29 14:10 | NUR ---
ED Nurse Note: RN confirmed with Son, Loy Munoz and patient has no blood clots on RUE and he was ok for this RN inserted IV to RAC.
--- NOTE | 2019-06-29 14:21 | Emergency Room Report ---
History of Present Illness General Chief Complaint: Altered Level of Consciousness Source: Patient, Family Member, Medical Record Present Illness HPI HPI: This is a 74-year-old male with a history of ESRD status post kidney transplant in the 1980s, prior stroke with some residual weakness on the left side, CAD status post 3 stents, diabetes, hypertension, and urinary tract infection having recently finished a course of Zosyn 1 week ago and presents for evaluation of altered mental status and hypotension. The patient is primarily Indian-speaking however his son is here who provides additional history is able to translate for the patient. States that yesterday, his family went to check in on him as the patient lives on his own found him somewhat confused though generally acting normally. This morning, he was found more significantly altered and confused though conscious and denied any complaints of pain from abrasion, respiratory distress. Notably, the son states that the patient recently finished a course of Zosyn for urinary tract infection approximately 1 week ago and had a Parker catheter placed at that time for retention from his BPH. He denies any dysuria or hematuria, fevers, chest pain, shortness of breath, headache, vision changes, nausea, vomiting, diarrhea or abdominal pain. Son states that he is now alert and oriented and behaving at his baseline. EMS arrived with the patient stating that his initial blood pressures were in the 70s systolic and improved to the 80s systolic after approximately 300 cc of IV fluids which continued to run. No reports of trauma from patient or family. He does state that he has not been drinking or eating over the past 2 days because he has been feeling fatigued PMH: End-stage renal disease, CAD, hypertension, diabetes, BPH, prior stroke PSH: Kidney transplant, laparoscopy, nephrectomy, PCI Allergies: Azathioprine Social Hx: Denies drinking alcohol, tobacco use or drug use Allergies: Coded Allergies: AZATHIOPRINE (Verified Allergy, Unknown, 11/20/10) Patient History Limited by: language barrier Nursing Documentation-PM Past Medical History: No History, Except For Hx Cardiac Problems: Yes Hx Hypertension: Yes Hx Asthma: No - BPH Hx Diabetes: Yes Hx Cancer: No Hx Gastrointestinal Problems: No Hx Neurological Problems: Yes Hx Cerebrovascular Accident: Yes Hx Transient Ischemic Attacks: Yes Hx Dementia: Yes Hx Meningitis: No Hx Encephalitis: No Hx Seizures: No Hx Epilepsy: No Hx Multiple Sclerosis: No Hx Cerebral Palsy: No Hx Amyotrophic Lat Sclerosis: No Hx Guillian-Newton Syndrome: No Hx Paralysis: No Hx Peripheral Neuropathy: No Hx Spinal Cord Injury: No Hx Head Trauma: No Hx Traumatic Brain Injury: No Hx Memory Loss: No Hx Concentration Difficulty: No Hx Speech Problem: No Hx Tremors: No Hx Vertigo: No Hx Dizziness: No Hx Syncope: No Hx Headaches: No Hx Aphasia: No Hx Dysphasia: No Hx Numbness: No Hx Weakness: Yes - Left arm residual of CVA Hx Fatigue: No Hx Neurologic Surgery: No Hx Brain Shunt: No Review of Systems All Other Systems: negative except mentioned in HPI Physical Exam Vital Signs Date Time Temp Pulse Resp B/P (MAP) Pulse Ox O2 Delivery O2 Flow Rate FiO2 06/29/19 13:55 98.2 71 21 82/31 (48) 100 Room Air General: Awake and alert, no acute distress, hypotensive with systolic blood pressures in the low 80s HEENT: NC/AT. EOMI. Neck: Supple, trachea midline Chest Wall: No tenderness, no deformity Cardiovascular: RRR. S1 and S2 normal. No murmur appreciated Resp: Normal work of breathing. No cough, wheezing or crackles appreciated Abdomen: Abdomen is soft, nondistended. Nontender. Laparotomy scars are clean dry and intact : Parker in place with no output Skin: Intact. No abrasions, laceration or rash over the exposed skin, surgical scars are clean dry and intact MSK: Normal tone and bulk. Moving all extremities. No obvious deformity. Neuro: Awake and alert. Mentating appropriately. Moving all extremities. He is following commands. Attention and concentration are appropriate Medical Decision Making Diagnostic Impression: Primary Impression: MALGORZATA (acute kidney injury) Additional Impression: Sepsis EKG Diagnostic Results EKG Time: 14:14 EP Interpretation: Normal sinus rhythm, Q waves I, aVL consistent with remote infarct. No cur Rate: normal Rhythm: NSR ST Segments: no acute changes Rhythm Strip Diag. Results Rhythm Strip Time: 14:14 EP Interpretation: yes Rate: 66 bpm Rhythm: NSR Reevaluation Time: 16:30 Last Vital Signs Date Time Temp Pulse Resp B/P (MAP) Pulse Ox O2 Delivery O2 Flow Rate FiO2 06/29/19 13:55 98.2 71 21 82/31 (48) 100 Room Air Reevaluation Impression Patient showed an elevated white count of 17,000 which is increased from his previous labs according to family approximately 12 5 days ago. His Parker catheter works exchange though there is very little urine output. His lab work shows moderate dehydration and an elevated creatinine. Family states his baseline is approximately 1.5 and today his creatinine is 1.8. Lactate and troponin are within normal limits. The patient would be given cefepime for broad antibiotic coverage presuming a urinary source though we are waiting for urinalysis at this time. He continues to receive IV fluids and his pressures have now normalized greater than 110 systolic after receiving 2 L normal saline boluses. He will be admitted to the stepdown unit for close monitoring and further management of presumed urosepsis with hypotension that is now resolving and new MALGORZATA. I discussed this treatment plan with the patient and his family; they all agree. Please note that this report is being documented using Bringrr technology. This can lead to erroneous entry secondary to incorrect interpretation by the dictating instrument. Disposition: ADMITTED INPATIENT Condition: Improved Anurag Hanson MD Jun 29, 2019 14:20
[2019-06-29 14:27] VITALS: BP 78/36
[2019-06-29 14:30] LABS: BASOPHILS % (AUTO) 0.5 % (0.0-2.0); EOSINOPHILS % (AUTO) 1.8 % (0.0-3.0); HEMOGLOBIN 11.7 G/DL (14.2-18.0); LYMPHOCYTES % (AUTO) 11.8 % (20.0-45.0); MEAN CORPUSCULAR VOLUME 87 FL (80-99); MONOCYTES % (AUTO) 6.2 % (1.0-10.0); NEUTROPHILS % (AUTO) 79.8 % (45.0-75.0); PLATELET COUNT 217 K/UL (150-450); RED BLOOD COUNT 4.26 M/UL (4.70-6.10); RED CELL DISTRIBUTION WIDTH 18.2 % (11.6-14.8); WHITE BLOOD COUNT 17.2 K/UL (4.8-10.8)
--- NOTE | 2019-06-29 14:35 | NUR ---
ED Nurse Note: Patient brought to ER from home with c/o Altered Le
--- NOTE | 2019-06-29 14:35 | NUR ---
Carmina chang in EDM - 06/29/19 at 1436 by ROGER ED Nurse Note: Patient brought to ER from home with c/o Altered Le
[2019-06-29 14:38] LABS: ANION GAP 11 mmol/L (5-15); BLOOD UREA NITROGEN 32 mg/dL (7-18); CALCIUM 8.5 MG/DL (8.5-10.1); CARBON DIOXIDE 18 MMOL/L (21-32); CHLORIDE 105 MMOL/L (98-107); CREATININE 1.8 MG/DL (0.55-1.30); POTASSIUM 4.7 MMOL/L (3.5-5.1); SODIUM 134 MMOL/L (136-145)
[2019-06-29 14:53] LABS: ALANINE AMINOTRANSFERASE 135 U/L (12-78); ALBUMIN 2.5 G/DL (3.4-5.0); ALBUMIN/GLOBULIN RATIO 0.7 (1.0-2.7); ALKALINE PHOSPHATASE 168 U/L (46-116); ASPARTATE AMINO TRANSFERASE 71 U/L (15-37); BILIRUBIN,TOTAL 0.7 MG/DL (0.2-1.0); CKMB 0.5 NG/ML (0.0-3.6); CREATINE KINASE 16 U/L (26-308); PHOSPHORUS 2.8 MG/DL (2.5-4.9)
--- NOTE | 2019-06-29 14:56 | Diagnostic Imaging Report ---
Indication: Dyspnea Comparison: 01/19/2018 A single view chest radiograph was obtained. Findings: No definite infiltrate or pulmonary vascular congestion identified. The heart is enlarged. The aorta is mildly enlarged consistent with atherosclerotic vascular disease. The bones are osteopenic. Impression: No acute disease
--- NOTE | 2019-06-29 15:00 | NUR ---
ED Nurse Note: RN changed f/c as ordered. RN removed catheter from home and inserted 16 Fr without resistance and draining minimal amount of cloudy urine. Patient tolerated the procedure without difficulty. No bleeding noted.
--- NOTE | 2019-06-29 15:15 | NUR ---
ED Nurse Note: Dr. Dumont at bedside and made aware patient has urine output 10ml, cloudy, yellow after IV fluids. Per son, emptied f/c this morning had UO ~ 300ml.
[2019-06-29 15:19] VITALS: BP 101/59
[2019-06-29 15:20] LABS: APPEARANCE,URINE CLOUDY; BILIRUBIN, URINE NEGATIVE (NEGATIVE); GLUCOSE, URINE (UA) NEGATIVE (NEGATIVE); KETONES,URINE 1+ (NEGATIVE); LEUKOCYTE ESTERASE ,URINE 3+ (NEGATIVE); NITRITE,URINE NEGATIVE (NEGATIVE); PH,URINE 5 (4.5-8.0); PROTEIN,URINE 3+ (NEGATIVE); UROBILINOGEN,URINE NORMAL MG/DL (0.0-1.0)
--- NOTE | 2019-06-29 15:20 | NUR ---
Carmina chang in EDM - 06/29/19 at 1650 by GERMAINE ED Nurse Note: RN confirmed with Son, Loy Munoz and patient has no blood clots on RUE and he was ok for this RN inserted IV to RAC.
[2019-06-29 15:22] LABS: COLOR,URINE YELLOW
[2019-06-29] MEDS ORDERED: Cefepime 2gm IM ONE (15:30)
[2019-06-29] MEDS ORDERED: Cefepime HCl 2 GM in D5W 55 ML IVPB ONE (15:45)
[2019-06-29 16:00] VITALS: BP 108/50
[2019-06-29] MEDS ORDERED: HYDRALAZINE HC100 MG ORAL (16:27)
[2019-06-29] MEDS ORDERED: CARAFATE1 G1 ORAL (16:27)
[2019-06-29] MEDS ORDERED: ACETAMINOPHEN500 M5 ORAL (16:27)
[2019-06-29] MEDS ORDERED: MULTIVITAMINS1 EAC8 ORAL (16:28)
[2019-06-29] MEDS ORDERED: SENNA8.6 M2 PO (16:28)
--- NOTE | 2019-06-29 16:30 | NUR ---
ED Nurse Note: Patient resting in bed. Provided comfort measures. Spouse at bedside.
[2019-06-29] MEDS ORDERED: BUMETANIDE0.5 MG ORAL (16:31)
[2019-06-29] MEDS ORDERED: ELIQUIS2.5 MG PO (16:31)
[2019-06-29] MEDS ORDERED: ISOSORBIDE MONO20 MG PO (16:31)
[2019-06-29] MEDS ORDERED: LOSARTAN POTASS25 MG ORAL (16:33)
[2019-06-29] MEDS ORDERED: ATORVASTATIN CA10 MG ORAL (16:33)
[2019-06-29] MEDS ORDERED: LEVOTHYROXINE175 MCG ORAL (16:33)
[2019-06-29] MEDS ORDERED: COLACE100 MG ORAL (16:33)
[2019-06-29] MEDS ORDERED: METOCLOPRAMIDE H5 M1 ORAL (16:34)
[2019-06-29] MEDS ORDERED: ADALAT20 MG ORAL (16:36)
[2019-06-29] MEDS ORDERED: METOPROLOL TART50 M1 ORAL (16:36)
[2019-06-29] MEDS ORDERED: TOUJEO SOL300 UNIT/1 SQ (16:36)
--- NOTE | 2019-06-29 16:46 | NUR ---
ED Nurse Note: Patient is being transferred to SDU accompanied by RN and Tomas, EMT. Patient left ER to floor with all his belongings.
[2019-06-29 17:00] VITALS: BP 117/63
--- NOTE | 2019-06-29 17:00 | NUR ---
NURSE NOTES: Received pt from ED, a new admission brought to SDU per sydnee accompanied by PROJECT COORDINATOR RN and Transporter,awake, alert ,less confused,in no resp distress,on RA,no signs of pain or discomfort,SR on the monitor,BP stable, with Parker cath draining yellow urine,IV sites x2 RAC and Lt arm,skin warm and dry,HOB elevated,SR up x2,call dillard placed within reach, at bedside, bed lock in lowest position,will continue with plans of care.
[2019-06-29] MEDS ORDERED: Morphine Sulfate 2mg/ml Inj(IV/IM USE ONLY) IVP PRN (17:15)
[2019-06-29] MEDS ORDERED: LORazepam Inj 2mg/ml 1ml IV PRN (17:15)
[2019-06-29] MEDS ORDERED: Nitroglycerin Subl 0.4mg tab SL PRN (17:15)
[2019-06-29] MEDS ORDERED: Milk of Magnesia 30ml Ud ORAL PRN (17:15)
[2019-06-29] MEDS ORDERED: TRAMADOL HCL50 MG ORAL (17:54)
[2019-06-29] MEDS ORDERED: BRILINTA90 MG PO (17:54)
[2019-06-29] MEDS ORDERED: METHOCARBAMOL500 MG ORAL (17:54)
[2019-06-29] MEDS ORDERED: ZOFRAN4 M3 ORAL (17:54)
[2019-06-29] MEDS ORDERED: PROCRIT10000 UNIT SUBQ (17:55)
[2019-06-29] MEDS ORDERED: NOVOLOG100 UNIT/4 SQ (17:56)
[2019-06-29] MEDS: D5NS 1,000 ML IV SCH (18:55)
--- NOTE | 2019-06-29 19:30 | NUR ---
NURSE NOTES: patient received from AMY Maloney. patient is observed sleeping in bed, arousable to voice, denies pain at this time. patient is on room air, tolerating well; no s/sx of respiratory distress noted at this time. F/C is patent and intact, draining well. IV sites are patent and intact, running fluids at prescribed rate. family is at bedside. bed in lowest position and locked, siderails up X3, call light within reach. will continue to monitor.
--- NOTE | 2019-06-29 19:35 | NUR ---
HAND-OFF: Report given to Patrizia REYES,pt resting in bed asleep son at bedside..
--- NOTE | 2019-06-29 19:40 | NUR ---
CASE MANAGEMENT: REVIEW 74Y/M BIBA FROM HOME CC: ALOC . DIAPHORETIC AND HYPOTENSIVE 82/31 SI: ALOC . ESRD . SEPSIS . MALGORZATA T 97.0 HR 57 RR 13 BP 78/36 SAT 98% ROOM AIR WBC 17.2 NA 134 BUN 32 CR 1.8 AST 71 ALT 135 ALK PHOS 168 IS: NS IVF BOLUS X1 CEFEPIME 2GM IM X1 CEFEPIME IV X1 PATIENT ADMITTED TO STEP DOWN UNIT 06/29/2019 DCP: PATIENT IS FROM HOME
[2019-06-29 20:00] VITALS: BP 119/62
[2019-06-29] MEDS ORDERED: Docusate 100mg cap ORAL SCH (21:00)
[2019-06-29] MEDS: Heparin 5000 units/ml inj SUBQ SCH (21:18)
--- NOTE | 2019-06-29 23:11 | Consultation ---
Consult Note Consult Note asked to eval at the request of Dr Orellana Patient seen , examined in the room at this time- gave the history Data reviewed discussed with AMY Acharya Admitted for Sepsis / Uti coughs occasionally has peterson ER: Chief Complaint: Altered Level of Consciousness Source: Patient, Family Member, Medical Record HPI: This is a 74-year-old male with a history of ESRD status post kidney transplant in the , prior stroke with some residual weakness on the left side, CAD status post 3 stents, diabetes, hypertension, and urinary tract infection having recently finished a course of Zosyn 1 week ago and presents for evaluation of altered mental status and hypotension. The patient is primarily Vietnamese-speaking yesterday, his family went to check in on him as the patient lives on his own found him somewhat confused though generally acting normally. This morning, he was found more significantly altered and confused though conscious and denied any complaints of pain from abrasion, respiratory distress. Notably, the son states that the patient recently finished a course of Zosyn for urinary tract infection approximately 1 week ago and had a Peterson catheter placed at that time for retention from his BPH. He denies any dysuria or hematuria, fevers, chest pain, shortness of breath, headache, vision changes, nausea, vomiting, diarrhea or abdominal pain. Son states that he is now alert and oriented and behaving at his baseline. EMS arrived with the patient stating that his initial blood pressures were in the 70s systolic and improved to the 80s systolic after approximately 300 cc of IV fluids which continued to run. No reports of trauma from patient or family. He does state that he has not been drinking or eating over the past 2 days because he has been feeling fatigued PMH: End-stage renal disease, CAD, hypertension, diabetes, BPH, prior stroke PSH: Kidney transplant, laparoscopy, nephrectomy, PCI Allergies: Azathioprine Assessment/Plan MALGORZATA Sepsis s/p Transplant Dm HTN s/p CVA peterson hydrate- fluid challenge antibiotics avoid nephrotoxics monitor renal parameters 2D echo per orders Jf Cortez MD Jun 29, 2019 23:11
--- NOTE | 2019-06-29 23:30 | Consultation ---
DATE OF CONSULTATION: 06/29/2019 CONSULTING PHYSICIAN: Jeremy Tang M.D. REFERRING PHYSICIAN: Italia Orellana M.D. REASON FOR CONSULTATION: For evaluation of urinary retention, UTI. HISTORY OF PRESENT ILLNESS: This is a 74-year-old male. He was brought to the emergency room because of altered mental status. The patient has an extensive past medical history. He has a history of end-stage renal disease. He has had bilateral nephrectomies. He has had a kidney transplant in . He has a history of stroke. He has a history of BPH with urinary retention. Apparently, he has had previous TURP at [facility] about a year or two ago. He has a chronic Parker. He was noted to have low blood pressure in the emergency room. He had pyuria. His Parker catheter was changed in the emergency room. Urology evaluation is requested. Most of the history was obtained from the patient's chart and his . PAST MEDICAL HISTORY: Significant for above, also history of coronary artery disease, hypertension, diabetes. PAST SURGICAL HISTORY: Kidney transplant, laparoscopy, previous nephrectomies. CURRENT MEDICATIONS: In the hospital, the patient is on cefepime, Colace, nitroglycerin, Tylenol, MOM, Zofran, and temazepam. ALLERGIES: To azathioprine. SOCIAL HISTORY: The patient is currently nonsmoker. FAMILY HISTORY: Noncontributory. REVIEW OF SYSTEMS: As above. PHYSICAL EXAMINATION: GENERAL: An elderly male, in no acute distress, somewhat poor responses to verbal commands. VITAL SIGNS: Temperature is 98.8, blood pressure is 119/62, pulse 62, respirations 20. HEENT: Normocephalic. NECK: Supple. ABDOMEN: Soft. GENITOURINARY: Reveals Parker in place. Urine is grossly yellow. EXTREMITIES: Slightly contracted. LABORATORY DATA: BUN is 32, creatinine 1.8, and potassium 4.8. White count is 17.2, hemoglobin 11.7, and platelets are 217,000. UA showed 3+ protein, 5-10 rbc's, too numerous to count white blood cells, many bacteria. Urine cultures are pending. DIAGNOSTIC IMAGING STUDIES: The patient had a chest x-ray from today, which was reviewed. There was no acute disease. He has not had a recent renal imaging study. He did have a CT scan of the abdomen and pelvis back in 2014 and at that time, there was mention of bilateral [place] nephrectomies, hydronephrosis in the transplanted kidney as well as inguinal hernia on the right side. IMPRESSION: 1. Urinary retention. 2. BPH history. 3. Probable neurogenic bladder. 4. Pyuria, possible UTI and colonization with chronic Parker. 5. Hematuria. 6. Proteinuria. 7. History of end-stage renal disease, status post transplant and chronic kidney disease. 8. Inguinal hernia. 9. History of hydronephrosis. PLAN AND DISCUSSION: Again as noted above, the patient does have a chronic Parker. He did have positive UA, which may be UTI, but also colonization. We will follow up on the results of any cultures and he is to be treated with antibiotics as ordered. According to the , he has had a previous prostate surgery at [facility], which I presume was a TURP and in fact, his prostatic fossa is open. He may just have an atonic neurogenic bladder and on a long-term basis, he may need to be managed with indwelling Parker or intermittent catheterization. We can consider having bethanechol at some point. He will need to have a cystoscopy at some point to evaluate the lower urinary tract and go from there. Thank you for this consultation. Jeremy Tang M.D. DR: Clarke JOB#: [id number] CC:
[2019-06-30] VITALS: BP 159/67
[2019-06-30 04:00] VITALS: BP 159/83
[2019-06-30 05:35] LABS: EOSINOPHILS % (AUTO) 4.4 % (0.0-3.0); HEMATOCRIT 34.6 % (42.0-52.0); HEMOGLOBIN 11.1 G/DL (14.2-18.0); LYMPHOCYTES % (AUTO) 21.5 % (20.0-45.0); MEAN CORPUSCULAR VOLUME 86 FL (80-99); MONOCYTES % (AUTO) 8.3 % (1.0-10.0); NEUTROPHILS % (AUTO) 64.9 % (45.0-75.0); PLATELET COUNT 230 K/UL (150-450); RED BLOOD COUNT 4.01 M/UL (4.70-6.10); WHITE BLOOD COUNT 11.6 K/UL (4.8-10.8)
[2019-06-30] MEDS: Pantoprazole Inj IVP SCH (06:08)
[2019-06-30 06:09] LABS: ANION GAP 11 mmol/L (5-15); BLOOD UREA NITROGEN 27 mg/dL (7-18); CARBON DIOXIDE 18 MMOL/L (21-32); CHLORIDE 110 MMOL/L (98-107); CHOLESTEROL 142 MG/DL (< 200); CREATININE 1.4 MG/DL (0.55-1.30); HDL CHOLESTEROL 41 MG/DL (40-60); POTASSIUM 4.6 MMOL/L (3.5-5.1); SODIUM 139 MMOL/L (136-145); TRIGLYCERIDES 128 MG/DL (30-150)
[2019-06-30 06:14] LABS: ALANINE AMINOTRANSFERASE 107 U/L (12-78); ALBUMIN 2.5 G/DL (3.4-5.0); ALKALINE PHOSPHATASE 152 U/L (46-116); ASPARTATE AMINO TRANSFERASE 45 U/L (15-37); BILIRUBIN,DIRECT 0.1 MG/DL (0.0-0.3); BILIRUBIN,TOTAL 0.5 MG/DL (0.2-1.0); GAMMA GLUTAMYL TRANSPEPTIDASE 407 U/L (5-85); PHOSPHORUS 3.3 MG/DL (2.5-4.9)
[2019-06-30] MEDS: D5NS 1,000 ML IV SCH ×2 (06:19→20:27)
[2019-06-30 08:00] VITALS: BP 137/66
--- NOTE | 2019-06-30 08:00 | NUR ---
HAND-OFF: Report given to AMY Boggs. patient is in stable condition.
--- NOTE | 2019-06-30 08:15 | NUR ---
NURSE NOTES: received pt in the bed, awake, alert, oriented, vital signs stable, no SOB, no co pain at this time, family in the room, skin warm and dry to touch, intact, Parker catheter with yellow urine, swallow eval done, bed in low position, call light within reach.
--- NOTE | 2019-06-30 08:40 | Urology Progress Note ---
Assessment/Plan Assessment/Plan: 1. Urinary retention. 2. BPH history. 3. Probable neurogenic bladder. 4. Pyuria, possible UTI and colonization with chronic Peterson. 5. Hematuria. 6. Proteinuria. 7. History of end-stage renal disease, status post transplant and chronic kidney disease. 8. Inguinal hernia. 9. History of hydronephrosis. keep peterson hand irrigate PRN abx as ordered f/u on any cx's monitor renal fxn cysto later consider renal imaging Subjective Allergies: Coded Allergies: AZATHIOPRINE (Verified Allergy, Unknown, 11/20/10) Subjective all noted Objective Last 24 Hour Vital Signs Date Time Temp Pulse Resp B/P (MAP) Pulse Ox O2 Delivery O2 Flow Rate FiO2 06/30/19 08:00 98.2 75 18 137/66 (89) 96 06/30/19 04:00 98.7 71 20 159/83 (108) 98 06/30/19 04:00 76 06/30/19 04:00 Room Air 06/30/19 00:00 Room Air 06/30/19 00:00 98.6 63 20 159/67 (97) 98 06/30/19 00:00 69 06/29/19 20:00 98.8 62 20 119/62 (81) 100 06/29/19 20:00 Room Air 06/29/19 18:00 Room Air 06/29/19 17:44 57 06/29/19 17:00 97.3 60 20 117/63 (81) 98 06/29/19 16:46 62 16 107/43 99 Room Air 06/29/19 16:00 97.0 60 17 108/50 98 Room Air 06/29/19 15:19 63 13 101/59 99 Room Air 06/29/19 14:27 97.9 65 19 78/36 Room Air 06/29/19 14:05 64 18 Room Air 06/29/19 13:55 98.2 71 21 82/31 (48) 100 Room Air Intake and Output 06/29/19 06/30/19 19:00 07:00 Intake Total 2055 ml 1636.25 ml Output Total 210 ml 400 ml Balance 1845 ml 1236.25 ml Intake IV Total 2055 ml 1636.25 ml Output Urine Total 210 ml 400 ml Current Medications Medications (Trade) Dose Ordered Sig/Lauren Route PRN Reason Start Time Stop Time Status Last Admin Dose Admin Acetaminophen (Tylenol) 650 mg Q4H PRN ORAL Mild Pain (Pain Scale 1-3) 06/29/19 17:15 07/29/19 17:14 Bisacodyl (Dulcolax) 10 mg DAILYPRN PRN RECTAL Constipation 06/29/19 17:30 07/29/19 17:14 Cefepime HCl 1 gm/ Dextrose 55 ml @ 110 mls/hr Q24H IVPB 06/30/19 16:00 07/07/19 15:59 Dextrose (Dextrose 50%) 25 ml Q30M PRN IV Hypoglycemia 06/29/19 17:15 07/29/19 17:14 Dextrose (Dextrose 50%) 50 ml Q30M PRN IV Hypoglycemia 06/29/19 17:15 07/29/19 17:14 Dextrose/Sodium Chloride 1,000 ml @ 75 mls/hr [id number] IV 06/29/19 17:30 07/29/19 17:29 06/30/19 06:19 Diphenhydramine HCl (Benadryl) 25 mg Q6H PRN ORAL Itching/Pruritis 06/29/19 17:15 07/29/19 17:14 Docusate Sodium (Colace) 100 mg TID ORAL 06/30/19 09:00 07/29/19 20:59 Heparin Sodium (Porcine) (Heparin 5000 units/ml) 5,000 units EVERY 12 HOURS SUBQ 06/29/19 21:00 07/29/19 20:59 06/29/19 21:18 Lorazepam (Ativan 2mg/ml 1ml) 0.5 mg Q4H PRN IV For Anxiety 06/29/19 17:15 07/06/19 17:14 Magnesium Hydroxide (Mom) 30 ml HSPRN PRN ORAL Constipation 06/29/19 17:15 07/29/19 17:14 Morphine Sulfate (Morphine Sulfate) 1 mg Q6H PRN IVP For Pain 4-10 06/29/19 17:15 07/06/19 17:14 Nitroglycerin (Ntg) 0.4 mg Q5M PRN SL Prn Chest Pain 06/29/19 17:15 07/29/19 17:14 Ondansetron HCl (Zofran) 4 mg Q6H PRN IVP Nausea & Vomiting 06/29/19 17:15 07/29/19 17:14 Pantoprazole (Protonix) 40 mg ACBREAKFAST IVP 06/30/19 06:30 07/30/19 06:29 06/30/19 06:08 Temazepam (Restoril) 15 mg HSPRN PRN ORAL Insomnia 06/29/19 17:15 07/06/19 17:14 Laboratory Tests 06/29/19 14:08: White Blood Count 17.2H, Red Blood Count 4.26L, Hemoglobin 11.7L, Hematocrit 37.0L, Mean Corpuscular Volume 87, Mean Corpuscular Hemoglobin 27.4, Mean Corpuscular Hemoglobin Concent 31.6L, Red Cell Distribution Width 18.2H, Platelet Count 217, Mean Platelet Volume 6.3L, Neutrophils (%) (Auto) 79.8H, Lymphocytes (%) (Auto) 11.8L, Monocytes (%) (Auto) 6.2, Eosinophils (%) (Auto) 1.8, Basophils (%) (Auto) 0.5, Prothrombin Time 10.7, Prothromb Time International Ratio 1.0, Activated Partial Thromboplast Time 27, Sodium Level 134L, Potassium Level 4.7, Chloride Level 105, Carbon Dioxide Level 18L, Anion Gap 11, Blood Urea Nitrogen 32H, Creatinine 1.8H, Estimat Glomerular Filtration Rate , Glucose Level 156H, Lactic Acid Level 1.90, Calcium Level 8.5, Phosphorus Level 2.8, Magnesium Level 1.3L, Total Bilirubin 0.7, Aspartate Amino Transf (AST/SGOT) 71H, Alanine Aminotransferase (ALT/SGPT) 135H, Alkaline Phosphatase 168H, Total Creatine Kinase 16L, Creatine Kinase MB 0.5, Creatine Kinase MB Relative Index 3.1, Troponin I 0.004, Total Protein 5.9L, Albumin 2.5L , Globulin 3.4, Albumin/Globulin Ratio 0.7L 06/29/19 15:03: Urine Color Yellow, Urine Appearance Cloudy, Urine pH 5, Urine Specific [place] 1.010, Urine Protein 3+H, Urine Glucose (UA) Negative, Urine Ketones 1+H, Urine Blood 1+H, Urine Nitrite Negative, Urine Bilirubin Negative, Urine Urobilinogen Normal, Urine Leukocyte Esterase 3+H, Urine RBC 5-10H, Urine WBC TntcH, Urine Squamous Epithelial Cells None, Urine Bacteria ManyH 06/30/19 03:40: White Blood Count 11.6H, Red Blood Count 4.01L, Hemoglobin 11.1L, Hematocrit 34.6L, Mean Corpuscular Volume 86, Mean Corpuscular Hemoglobin 27.8, Mean Corpuscular Hemoglobin Concent 32.2, Red Cell Distribution Width 18.0H, Platelet Count 230, Mean Platelet Volume 6.6, Neutrophils (%) (Auto) 64.9, Lymphocytes (%) (Auto) 21.5, Monocytes (%) (Auto) 8.3, Eosinophils (%) (Auto) 4.4H, Basophils (%) (Auto) 1.0, Sodium Level 139, Potassium Level 4.6, Chloride Level 110H, Carbon Dioxide Level 18L, Anion Gap 11, Blood Urea Nitrogen 27H, Creatinine 1.4H, Estimat Glomerular Filtration Rate , Glucose Level 81, Calcium Level 9.0, Phosphorus Level 3.3, Magnesium Level 2.1, Total Bilirubin 0.5, Aspartate Amino Transf (AST/SGOT) 45H, Alanine Aminotransferase (ALT/SGPT) 107H , Alkaline Phosphatase 152H, Total Protein 6.1L, Albumin 2.5L, Hemoglobin A1c 5.1, Uric Acid 6.8, Direct Bilirubin 0.1, Gamma Glutamyl Transpeptidase 407H, Ammonia 35H, C-Reactive Protein, Quantitative 8.1H, Pro-B-Type Natriuretic Peptide 824H, Triglycerides Level 128, Cholesterol Level 142, LDL Cholesterol 75 , HDL Cholesterol 41, Cholesterol/HDL Ratio 3.5, Thyroid Stimulating Hormone ( TSH) 0.462 06/30/19 06:45: Urine Eosinophils [Pending], Urine Random Sodium 125H Height (Feet): 5 Height (Inches): 5.00 Weight (Pounds): 150 Objective exam stable Jeremy Tang MD Jun 30, 2019 08:40
--- NOTE | 2019-06-30 09:12 | NUR ---
SWALLOW/SPEECH THERAPY NOTE: REFERRED BY DR ZHOU FOR SWALLOW EVAL, SEE FULL REPORT IN [facility] ACTIVITY SECTION. DYSPHAGIA RISK FACTORS FOR THIS 74 Y.O. GREEK-SPEAKING (EL RAIN) MALE: ACUTE ISSUES: ALOC INCREASED CONFUSION, RECENT UTI, VOMITING LAST FEW MONTHS OR SO, SEPSIS, WEIGHT LOSS 30 LBS IN ONE YEAR DX WITH ESOPHAGEAL CANCER PER WAS TO HAVE EGD AND ESOPHAGEAL SURGERY TODAY PER CG, MALGORZATA LUNGS CLEAR ON RECENT CXR (PNA ONE YEAR AGO AT [facility] PER ) H/O CVA WITH RESTORER LACE AND TEXTILES 4 YEARS AGO (AT [facility] [place] 2018 MRI (BRAIN) AND CT (HEAD) SCANS REVEALED OLD R FRONTAL INFARCT AND SMALL SUBCORTICAL MULTIPLE INFARCTS, SMALL RIGHT MACHINIST SET UP PARIETAL DEEP WHITE MATTER INFARCT. ALSO H/O HTN, DIABETES, DEMENTIA, CVA/TIA, CAD 3 STENTS, KIDNEY TRANSPLANT 27 YEARS AGO, PNA ([facility] 2018) RELEVANT MEDS: PROTONIX FOR GERD, ZOFRAN, MORPHINE, ATIVAN NO POLST NOR AD IN CHART REGARDING TUBE FEEDING PREFERENCES AT [facility] [place] 2018 ON CARDIAC CCH0-MED REG TEXTURE AND THIN LIQUIDS WITH GOOD INTAKE. (LUNGS THEN SHOWED LEFT LATERAL BASILAR ATELECTASIS MILD CARDIOMEGALY BUT AT [facility] 2018 HAD PNA). AT HOME ON REG DIET BUT LOST 30 LBS IN ONE YEAR (RECENTLY DX WITH ESOPHAGEAL CA) AND LAST VOMITED THIS THURSDAY PER CG, POOR INTAKE 20-30% THE LAST FEW DAYS. WAS ALSO TAKING BOOST AT HOME SINCE HE HAD A POOR APPETITE IN POOR INTAKE. CURRENTLY ON CCHO-MED REG TEXTURE DIET AND THIN LIQUIDS (SLOW INTAKE TOOK ONLY OATMEAL NO VOMITING NOR S/S OF ASP EVEN WITH THIN LIQUIDS PER ). ALERT AND ABLE TO EXPRESS NEEDS. ON ROOM AIR. UPPER/LOWER PARTIAL DENTURES AT HOME. INITIAL IMPRESSIONS: LIPS/TONGUE/VOICE WNLS BUT MISSING ALL MOLARS GROSSLY FUNCTIONAL SWALLOW WITH PUREED TSP AND THIN LIQUIDS VIA STRAW SEQUENTIAL SIPS (3 OZ WATER TEST HOEM SWALLOW PROTOCOL) W/O OVERT ASPIRATION BUT HAS SILENT ASPIRATION RISK. POSSIBLE SUBTLE AND INCONSISTENT DYSPHAGIA WITH THIN LIQUIDS SINCE STATES HE SOMETIMES COUGH WITH THIN LIQUIDS WHEN HE SWALLOWS SEQUENTIAL OR TOO FAST BUT NOT LATELY (LUNGS CLEAR NOW AND LAST PNA A YEAR AGO) DISLIKES NECTAR THICK LIQUIDS SLOWER CHEWING MASTICATED SOLIDS GIVEN HE HAS NO MOLARS BUT PARTIAL DENTURES NOT HERE ( TO BRING IN FOR UPGRADES IN DIET) SLOW AND LIMITED INTAKE RECOMMENDATIONS DOWNGRADE MECH SOFT FINELY CHOPPED DIET AND THIN LIQUIDS (ONE SIP ONLY) WITH POSTED ASP/REFLUX PRECAUTIONS ASSIST WITH MEALS (HAS CG) ADD GLUCERNA CHOCOLATE TID AND CALORIE COUNT PER RD PER MD ADD CARDIAC TO CCHO-MED DIET (WAS ON CARDIAC PRIOR ADMIT) COMPLETE MOD BARIUM SWALLOW STUDY (MBSS) TO FURTHER ASSESS SWALLOW, DETERMINE SILENT ASP RISK AND ATTEMPT TRIAL TX SKILLED DYSPHAGIA MANAGEMENT AND TX COG-COM EVAL/TX ? NEED FOR GI CONSULT IF STILL VOMITING AND REGARDING ESOPHAGEAL CANCER (VERSUS F/UP AT [facility]). EDUCATED/TRAINED BITA RN IN POSTED ASP/REFLUX PRECAUTIONS D/W DR ZHOU WHO AGREES WITH RECOMMENDATIONS AND MBSS Addendum: 06/30/19 at 0916 by MALGORZATA NG PHARMACY BILLING ADJUDICATOR RISK FOR ESOPHAGEAL DYSPHAGIA (GIVEN ESOPHAGEAL CANCER DX) AND ON GERD MEDS
[2019-06-30] MEDS: Docusate 100mg cap ORAL SCH ×3 (09:28→17:32)
[2019-06-30] MEDS: Heparin 5000 units/ml inj SUBQ SCH (09:29)
--- NOTE | 2019-06-30 09:35 | NUR ---
PT EVALUATION NOTE Patient seen for initial evaluation, see complete evaluation for details. Patient presents with generalized weakness which limits patient's ability to transfer and ambulate. Patient required mod/max assist to come to sitting at EOB; unable to stand or ambulate due to weakness. Patient will benefit from skilled inpatient PT intervention to address strength, balance, safety and functional mobility. Recommend discharge to SNF for further rehab to improve overall strength, endurance and level of mobility once medically cleared by MD. Patient appears to have necessary DME at home. Addendum: 06/30/19 at 1322 by SHIVA WILLSON PT Amended: Links added.
--- NOTE | 2019-06-30 09:54 | Nephrology Progress Note ---
Assessment/Plan Problem List: (1) MALGORZATA (acute kidney injury) (2) Sepsis (3) Toxic metabolic encephalopathy (4) Anemia of chronic disease (5) Diabetic nephropathy (6) HTN Assessment MALGORZATA Sepsis s/p kidney Transplant DM HTN s/p CVA Esophageal cancer as recent diagnosis Plan peterson hydrate- fluid challenge antibiotics avoid nephrotoxics monitor renal parameters 2D echo per orders Gi , ID advise Subjective Constitutional: Reports: malaise, other - occ cough Objective Objective Last 24 Hour Vital Signs Date Time Temp Pulse Resp B/P (MAP) Pulse Ox O2 Delivery O2 Flow Rate FiO2 06/30/19 08:00 98.2 75 18 137/66 (89) 96 06/30/19 04:00 98.7 71 20 159/83 (108) 98 06/30/19 04:00 76 06/30/19 04:00 Room Air 06/30/19 00:00 Room Air 06/30/19 00:00 98.6 63 20 159/67 (97) 98 06/30/19 00:00 69 06/29/19 20:00 98.8 62 20 119/62 (81) 100 06/29/19 20:00 Room Air 06/29/19 18:00 Room Air 06/29/19 17:44 57 06/29/19 17:00 97.3 60 20 117/63 (81) 98 06/29/19 16:46 62 16 107/43 99 Room Air 06/29/19 16:00 97.0 60 17 108/50 98 Room Air 06/29/19 15:19 63 13 101/59 99 Room Air 06/29/19 14:27 97.9 65 19 78/36 Room Air 06/29/19 14:05 64 18 Room Air 06/29/19 13:55 98.2 71 21 82/31 (48) 100 Room Air Intake and Output 06/29/19 06/30/19 19:00 07:00 Intake Total 2055 ml 1636.25 ml Output Total 210 ml 400 ml Balance 1845 ml 1236.25 ml Intake IV Total 2055 ml 1636.25 ml Output Urine Total 210 ml 400 ml Laboratory Tests 06/29/19 14:08: White Blood Count 17.2H, Red Blood Count 4.26L, Hemoglobin 11.7L, Hematocrit 37.0L, Mean Corpuscular Volume 87, Mean Corpuscular Hemoglobin 27.4, Mean Corpuscular Hemoglobin Concent 31.6L, Red Cell Distribution Width 18.2H, Platelet Count 217, Mean Platelet Volume 6.3L, Neutrophils (%) (Auto) 79.8H, Lymphocytes (%) (Auto) 11.8L, Monocytes (%) (Auto) 6.2, Eosinophils (%) (Auto) 1.8, Basophils (%) (Auto) 0.5, Prothrombin Time 10.7, Prothromb Time International Ratio 1.0, Activated Partial Thromboplast Time 27, Sodium Level 134L, Potassium Level 4.7, Chloride Level 105, Carbon Dioxide Level 18L, Anion Gap 11, Blood Urea Nitrogen 32H, Creatinine 1.8H, Estimat Glomerular Filtration Rate , Glucose Level 156H, Lactic Acid Level 1.90, Calcium Level 8.5, Phosphorus Level 2.8, Magnesium Level 1.3L, Total Bilirubin 0.7, Aspartate Amino Transf (AST/SGOT) 71H, Alanine Aminotransferase (ALT/SGPT) 135H, Alkaline Phosphatase 168H, Total Creatine Kinase 16L, Creatine Kinase MB 0.5, Creatine Kinase MB Relative Index 3.1, Troponin I 0.004, Total Protein 5.9L, Albumin 2.5L , Globulin 3.4, Albumin/Globulin Ratio 0.7L 06/29/19 15:03: Urine Color Yellow, Urine Appearance Cloudy, Urine pH 5, Urine Specific [place] 1.010, Urine Protein 3+H, Urine Glucose (UA) Negative, Urine Ketones 1+H, Urine Blood 1+H, Urine Nitrite Negative, Urine Bilirubin Negative, Urine Urobilinogen Normal, Urine Leukocyte Esterase 3+H, Urine RBC 5-10H, Urine WBC TntcH, Urine Squamous Epithelial Cells None, Urine Bacteria ManyH 06/30/19 03:40: White Blood Count 11.6H, Red Blood Count 4.01L, Hemoglobin 11.1L, Hematocrit 34.6L, Mean Corpuscular Volume 86, Mean Corpuscular Hemoglobin 27.8, Mean Corpuscular Hemoglobin Concent 32.2, Red Cell Distribution Width 18.0H, Platelet Count 230, Mean Platelet Volume 6.6, Neutrophils (%) (Auto) 64.9, Lymphocytes (%) (Auto) 21.5, Monocytes (%) (Auto) 8.3, Eosinophils (%) (Auto) 4.4H, Basophils (%) (Auto) 1.0, Sodium Level 139, Potassium Level 4.6, Chloride Level 110H, Carbon Dioxide Level 18L, Anion Gap 11, Blood Urea Nitrogen 27H, Creatinine 1.4H, Estimat Glomerular Filtration Rate , Glucose Level 81, Calcium Level 9.0, Phosphorus Level 3.3, Magnesium Level 2.1, Total Bilirubin 0.5, Aspartate Amino Transf (AST/SGOT) 45H, Alanine Aminotransferase (ALT/SGPT) 107H , Alkaline Phosphatase 152H, Total Protein 6.1L, Albumin 2.5L, Hemoglobin A1c 5.1, Uric Acid 6.8, Direct Bilirubin 0.1, Gamma Glutamyl Transpeptidase 407H, Ammonia 35H, C-Reactive Protein, Quantitative 8.1H, Pro-B-Type Natriuretic Peptide 824H, Triglycerides Level 128, Cholesterol Level 142, LDL Cholesterol 75 , HDL Cholesterol 41, Cholesterol/HDL Ratio 3.5, Thyroid Stimulating Hormone ( TSH) 0.462 06/30/19 06:45: Urine Eosinophils None seen, Urine Random Sodium 125H Height (Feet): 5 Height (Inches): 5.00 Weight (Pounds): 150 General Appearance: no apparent distress, lethargic Cardiovascular: normal rate Respiratory/Chest: decreased breath sounds Abdomen: distended Jf Cortez MD Jun 30, 2019 09:54
--- NOTE | 2019-06-30 10:34 | Consultation ---
History of Present Illness General Chief Complaint: Altered Level of Consciousness Present Illness Allergies: Coded Allergies: AZATHIOPRINE (Verified Allergy, Unknown, 11/20/10) Medication History Scheduled Acetaminophen (Acetaminophen), 1,000 MG ORAL Q8HR, (Reported) Apixaban (Eliquis), 2.5 MG PO BID, (Reported) Aspirin* (Aspir 81*), 81 MG ORAL DAILY, (Reported) Atorvastatin Calcium* (Atorvastatin Calcium*), 40 MG ORAL BEDTIME, (Reported) Atorvastatin Calcium* (Lipitor*), 10 MG ORAL BEDTIME, (Reported) Bumetanide* (Bumetanide*), 0.5 MG ORAL DAILY, (Reported) Cefuroxime Axetil (Ceftin), 250 MG PO BID Clopidogrel Bisulfate* (Plavix*), 75 MG ORAL DAILY, (Reported) Cyclosporine* (Cyclosporine*), 50 MG PO BID, (Reported) Docusate Sodium* (Colace*), 100 MG ORAL TWICE A DAY, (Reported) Ezetimibe (Zetia*), 10 MG ORAL BEDTIME, (Reported) Ezetimibe (Zetia*), 10 MG ORAL BEDTIME, (Reported) Furosemide* (Lasix*), 20 MG ORAL DAILY, (Reported) Hydralazine Hcl* (Hydralazine Hcl*), 100 MG ORAL EVERY 8 HOURS, (Reported) Insulin Glargine (Lantus), 0 SUBQ BEDTIME, (Reported) Insulin Glargine,Hum.rec.anlog (Toujeo Solostar), 40 UNIT SQ DAILY, (Reported) Isosorbide Mononitrate (Isosorbide Mononitrate Er), 90 MG ORAL DAILY Isosorbide Mononitrate (Isosorbide Mononitrate), 60 MG PO DAILY, (Reported) Levothyroxine Sodium (Levothyroxine Sodium), 112 MCG ORAL DAILY, (Reported) Losartan Potassium* (Losartan Potassium*), 50 MG ORAL DAILY, (Reported) Losartan Potassium* (Losartan Potassium*), 25 MG ORAL DAILY, (Reported) Metoprolol Tartrate (Metoprolol Tartrate), 25 MG ORAL EVERY 12 HOURS Metoprolol Tartrate* (Metoprolol Tartrate*), 50 MG ORAL EVERY 12 HOURS, ( Reported) Multivitamin With Minerals (Multivitamins With Minerals*), 1 TAB ORAL DAILY, ( Reported) Nifedipine (Nifedipine*), 90 MG ORAL DAILY, (Reported) Nifedipine Xl* (Procardia Xl*), 60 MG ORAL BID Pantoprazole* (Pantoprazole*), 40 MG ORAL DAILY, (Reported) Prednisone* (Prednisone*), 5 MG ORAL DAILY, (Reported) Sennosides (Senna), 2 TAB PO BID, (Reported) Sitagliptin (Januvia), 100 MG ORAL DAILY, (Reported) Sucralfate* (Carafate*), 1 GM ORAL TID, (Reported) Tamsulosin Hcl (Tamsulosin Hcl*), 0.8 MG ORAL BEDTIME, (Reported) Scheduled PRN Albuterol Sulfate* (Albuterol Sulfate Hhn*), Unknown Dose INH Q4H PRN for Shortness of Breath, (Reported) Epoetin Rene (Procrit), 10,000 UNIT SUBQ 2XW PRN for Other, (Reported) Hydrocodone Bit/Acetaminophen 10-325* ([place] 10-325*), 1 TAB ORAL Q4H PRN for For Pain, (Reported) Methocarbamol* (Methocarbamol*), 250 MG ORAL TID PRN for For Pain, (Reported) Metoclopramide Hcl* (Metoclopramide Hcl*), 5 MG ORAL TID PRN for other, ( Reported) Ondansetron* (Zofran*), 4 MG ORAL Q8HR PRN for Nausea & Vomiting, (Reported) Ticagrelor* (Brilinta*), 90 MG PO BID PRN for other, (Reported) Tramadol Hcl* (Ultram*), 100 MG ORAL Q6H PRN for For Pain, (Reported) Miscellaneous Medications Benzonatate* (Benzonatate*), 100 MG ORAL, (Reported) Cyclosporine* (Cyclosporine*), 100 MG PO, (Reported) Fludrocortisone Acetate (Fludrocortisone Acetate), 0.1 MG PO, (Reported) Gabapentin* (Gabapentin*), 600 MG ORAL, (Reported) Guaifenesin/Dextromethorphan (Diabetic Tussin Dm Liquid), Unknown Dose PO, ( Reported) Insulin Aspart (Novolog), 100 UNIT SQ, (Reported) Linaclotide (Linzess), 145 MCG PO, (Reported) Magnesium (Magnesium), 500 MG PO, (Reported) Patient History Healthcare decision maker Resuscitation status Full Code Advanced Directive on File Physical Exam Last 24 Hour Vital Signs Date Time Temp Pulse Resp B/P (MAP) Pulse Ox O2 Delivery O2 Flow Rate FiO2 06/30/19 08:00 98.2 75 18 137/66 (89) 96 06/30/19 04:00 98.7 71 20 159/83 (108) 98 06/30/19 04:00 76 06/30/19 04:00 Room Air 06/30/19 00:00 Room Air 06/30/19 00:00 98.6 63 20 159/67 (97) 98 06/30/19 00:00 69 06/29/19 20:00 98.8 62 20 119/62 (81) 100 06/29/19 20:00 Room Air 06/29/19 18:00 Room Air 06/29/19 17:44 57 06/29/19 17:00 97.3 60 20 117/63 (81) 98 06/29/19 16:46 62 16 107/43 99 Room Air 06/29/19 16:00 97.0 60 17 108/50 98 Room Air 06/29/19 15:19 63 13 101/59 99 Room Air 06/29/19 14:27 97.9 65 19 78/36 Room Air 06/29/19 14:05 64 18 Room Air 06/29/19 13:55 98.2 71 21 82/31 (48) 100 Room Air Intake and Output 06/29/19 06/30/19 19:00 07:00 Intake Total 2055 ml 1636.25 ml Output Total 210 ml 400 ml Balance 1845 ml 1236.25 ml Intake IV Total 2055 ml 1636.25 ml Output Urine Total 210 ml 400 ml Laboratory Tests Test 06/29/19 14:08 06/29/19 15:03 06/30/19 03:40 06/30/19 06:45 White Blood Count 17.2 K/UL (4.8-10.8) H 11.6 K/UL (4.8-10.8) H Red Blood Count 4.26 M/UL (4.70-6.10) L 4.01 M/UL (4.70-6.10) L Hemoglobin 11.7 G/DL (14.2-18.0) L 11.1 G/DL (14.2-18.0) L Hematocrit 37.0 % (42.0-52.0) L 34.6 % (42.0-52.0) L Mean Corpuscular Volume 87 FL (80-99) 86 FL (80-99) Mean Corpuscular Hemoglobin 27.4 PG (27.0-31.0) 27.8 PG (27.0-31.0) Mean Corpuscular Hemoglobin Concent 31.6 G/DL (32.0-36.0) L 32.2 G/DL (32.0-36.0) Red Cell Distribution Width 18.2 % (11.6-14.8) H 18.0 % (11.6-14.8) H Platelet Count 217 K/UL (150-450) 230 K/UL (150-450) Mean Platelet Volume 6.3 FL (6.5-10.1) L 6.6 FL (6.5-10.1) Neutrophils (%) (Auto) 79.8 % (45.0-75.0) H 64.9 % (45.0-75.0) Lymphocytes (%) (Auto) 11.8 % (20.0-45.0) L 21.5 % (20.0-45.0) Monocytes (%) (Auto) 6.2 % (1.0-10.0) 8.3 % (1.0-10.0) Eosinophils (%) (Auto) 1.8 % (0.0-3.0) 4.4 % (0.0-3.0) H Basophils (%) (Auto) 0.5 % (0.0-2.0) 1.0 % (0.0-2.0) Prothrombin Time 10.7 SEC (9.30-11.50) Prothromb Time International Ratio 1.0 (0.9-1.1) Activated Partial Thromboplast Time 27 SEC (23-33) Sodium Level 134 MMOL/L (136-145) L 139 MMOL/L (136-145) Potassium Level 4.7 MMOL/L (3.5-5.1) 4.6 MMOL/L (3.5-5.1) Chloride Level 105 MMOL/L (98-107) 110 MMOL/L (98-107) H Carbon Dioxide Level 18 MMOL/L (21-32) L 18 MMOL/L (21-32) L Anion Gap 11 mmol/L (5-15) 11 mmol/L (5-15) Blood Urea Nitrogen 32 mg/dL (7-18) H 27 mg/dL (7-18) H Creatinine 1.8 MG/DL (0.55-1.30) H 1.4 MG/DL (0.55-1.30) H Estimat Glomerular Filtration Rate mL/min (>60) mL/min (>60) Glucose Level 156 MG/DL (74-106) H 81 MG/DL (74-106) Lactic Acid Level 1.90 mmol/L (0.4-2.0) Calcium Level 8.5 MG/DL (8.5-10.1) 9.0 MG/DL (8.5-10.1) Phosphorus Level 2.8 MG/DL (2.5-4.9) 3.3 MG/DL (2.5-4.9) Magnesium Level 1.3 MG/DL (1.8-2.4) L 2.1 MG/DL (1.8-2.4) Total Bilirubin 0.7 MG/DL (0.2-1.0) 0.5 MG/DL (0.2-1.0) Aspartate Amino Transf (AST/SGOT) 71 U/L (15-37) H 45 U/L (15-37) H Alanine Aminotransferase (ALT/SGPT) 135 U/L (12-78) H 107 U/L (12-78) H Alkaline Phosphatase 168 U/L (46-116) H 152 U/L (46-116) H Total Creatine Kinase 16 U/L (26-308) L Creatine Kinase MB 0.5 NG/ML (0.0-3.6) Creatine Kinase MB Relative Index 3.1 Troponin I 0.004 ng/mL (0.000-0.056) Total Protein 5.9 G/DL (6.4-8.2) L 6.1 G/DL (6.4-8.2) L Albumin 2.5 G/DL (3.4-5.0) L 2.5 G/DL (3.4-5.0) L Globulin 3.4 g/dL Albumin/Globulin Ratio 0.7 (1.0-2.7) L Urine Color Yellow Urine Appearance Cloudy Urine pH 5 (4.5-8.0) Urine Specific [place] 1.010 (1.005-1.035) Urine Protein 3+ (NEGATIVE) H Urine Glucose (UA) Negative (NEGATIVE) Urine Ketones 1+ (NEGATIVE) H Urine Blood 1+ (NEGATIVE) H Urine Nitrite Negative (NEGATIVE) Urine Bilirubin Negative (NEGATIVE) Urine Urobilinogen Normal MG/DL (0.0-1.0) Urine Leukocyte Esterase 3+ (NEGATIVE) H Urine RBC 5-10 /HPF (0 - 0) H Urine WBC Tntc /HPF (0 - 0) H Urine Squamous Epithelial Cells None /LPF (NONE/OCC) Urine Bacteria Many /HPF (NONE) H Hemoglobin A1c 5.1 % (4.3-6.0) Uric Acid 6.8 MG/DL (2.6-7.2) Direct Bilirubin 0.1 MG/DL (0.0-0.3) Gamma Glutamyl Transpeptidase 407 U/L (5-85) H Ammonia 35 umol/L (11-32) H C-Reactive Protein, Quantitative 8.1 mg/dL (0.00-0.90) H Pro-B-Type Natriuretic Peptide 824 pg/mL (0-125) H Triglycerides Level 128 MG/DL (30-150) Cholesterol Level 142 MG/DL (< 200) LDL Cholesterol 75 mg/dL (<100) HDL Cholesterol 41 MG/DL (40-60) Cholesterol/HDL Ratio 3.5 (3.3-4.4) Thyroid Stimulating Hormone (TSH) 0.462 uiU/mL (0.358-3.740) Urine Eosinophils None seen (NONE SEEN) Urine Random Sodium 125 mmol/L (20-110) H Microbiology Date/Time Source Procedure Growth Status 06/29/19 15:03 Urine,Clean Catch Urine Culture - Preliminary Gram Negative Bacillus 1 Resulted Height (Feet): 5 Height (Inches): 5.00 Weight (Pounds): 150 Medications Current Medications Medications (Trade) Dose Ordered Sig/Lauren Route PRN Reason Start Time Stop Time Status Last Admin Dose Admin Acetaminophen (Tylenol) 650 mg Q4H PRN ORAL Mild Pain (Pain Scale 1-3) 06/29/19 17:15 8/30/19 17:14 Bisacodyl (Dulcolax) 10 mg DAILYPRN PRN RECTAL Constipation 06/29/19 17:30 07/29/19 17:14 Cefepime HCl 1 gm/ Dextrose 55 ml @ 110 mls/hr Q24H IVPB 06/30/19 16:00 07/07/19 15:59 Dextrose (Dextrose 50%) 25 ml Q30M PRN IV Hypoglycemia 06/30/19 10:30 07/30/19 10:29 Dextrose (Dextrose 50%) 50 ml Q30M PRN IV Hypoglycemia 06/30/19 11:30 07/30/19 11:29 Dextrose/Sodium Chloride 1,000 ml @ 75 mls/hr [id number] IV 06/29/19 17:30 07/29/19 17:29 06/30/19 06:19 Diphenhydramine HCl (Benadryl) 25 mg Q6H PRN ORAL Itching/Pruritis 06/29/19 17:15 07/29/19 17:14 Docusate Sodium (Colace) 100 mg TID ORAL 06/30/19 09:00 07/29/19 20:59 06/30/19 09:28 Heparin Sodium (Porcine) (Heparin 5000 units/ml) 5,000 units EVERY 12 HOURS SUBQ 06/29/19 21:00 07/29/19 20:59 06/30/19 09:29 Insulin Aspart (NovoLOG) BEFORE MEALS AND HS SUBQ 06/30/19 11:30 07/30/19 11:29 Lorazepam (Ativan 2mg/ml 1ml) 0.5 mg Q4H PRN IV For Anxiety 06/29/19 17:15 07/06/19 17:14 Magnesium Hydroxide (Mom) 30 ml HSPRN PRN ORAL Constipation 06/29/19 17:15 07/29/19 17:14 Morphine Sulfate (Morphine Sulfate) 1 mg Q6H PRN IVP For Pain 4-10 06/29/19 17:15 07/06/19 17:14 Nitroglycerin (Ntg) 0.4 mg Q5M PRN SL Prn Chest Pain 06/29/19 17:15 07/29/19 17:14 Ondansetron HCl (Zofran) 4 mg Q6H PRN IVP Nausea & Vomiting 06/29/19 17:15 07/29/19 17:14 Pantoprazole (Protonix) 40 mg ACBREAKFAST IVP 06/30/19 06:30 07/30/19 06:29 06/30/19 06:08 Temazepam (Restoril) 15 mg HSPRN PRN ORAL Insomnia 06/29/19 17:15 07/06/19 17:14 Assessment/Plan Assessment/Plan: Oncology Consultation RFC: Esophageal cancer Chief Complaint: Altered Level of Consciousness REQ MD: Italia Orellana DOS: 06/30/19 HPI: 74-year-old male with a history of ESRD status post kidney transplant in the , prior stroke with some residual weakness on the left side, CAD status post 3 stents, diabetes, hypertension, and urinary tract infection having recently finished a course of Zosyn 1 week ago and presents for evaluation of altered mental status and hypotension. The patient is primarily [place]z- speaking however his son is here who provides additional history is able to translate for the patient. States that yesterday, his family went to check in on him as the patient lives on his own found him somewhat confused though generally acting normally. This morning, he was found more significantly altered and confused though conscious and denied any complaints of pain from abrasion, respiratory distress. Notably, the son states that the patient recently finished a course of Zosyn for urinary tract infection approximately 1 week ago and had a Parker catheter placed at that time for retention from his BPH. Son states that he is now alert and oriented and behaving at his baseline. EMS arrived with the patient stating that his initial blood pressures were in the 70s systolic and improved to the 80s systolic after approximately 300 cc of IV fluids which continued to run. No reports of trauma from patient or family. He does state that he has not been drinking or eating over the past 2 days because he has been feeling fatigued PMH: End-stage renal disease, CAD, hypertension, diabetes, BPH, prior stroke PSH: Kidney transplant, laparoscopy, nephrectomy, PCI Allergies: Azathioprine Social Hx: Denies drinking alcohol, tobacco use or drug use Allergies: AZATHIOPRINE (Verified Allergy, Unknown, 11/20/10) Patient History Limited by: language barrier Nursing Documentation-PMH Past Medical History: No History, Except For Hx Cardiac Problems: Yes Hx Hypertension: Yes Hx Asthma: No - BPH Hx Diabetes: Yes Hx Cancer: No Hx Gastrointestinal Problems: No Hx Neurological Problems: Yes Hx Cerebrovascular Accident: Yes Hx Transient Ischemic Attacks: Yes Hx Dementia: Yes Hx Meningitis: No Hx Encephalitis: No Hx Seizures: No Hx Epilepsy: No Hx Multiple Sclerosis: No Hx Cerebral Palsy: No Hx Amyotrophic Lat Sclerosis: No Hx Gu[place] Syndrome: No Hx Paralysis: No Hx Peripheral Neuropathy: No Hx Spinal Cord Injury: No Hx Head Trauma: No Hx Traumatic Brain Injury: No Hx Memory Loss: No Hx Concentration Difficulty: No Hx Speech Problem: No Hx Tremors: No Hx Vertigo: No Hx Dizziness: No Hx Syncope: No Hx Headaches: No Hx Aphasia: No Hx Dysphasia: No Hx Numbness: No Hx Weakness: Yes - Left arm residual of CVA Hx Fatigue: No Hx Neurologic Surgery: No Hx Brain Shunt: No Review of Systems: negative except mentioned in HPI Physical Exam Last 24 Hour Vital Signs Date Time Temp Pulse Resp B/P (MAP) Pulse Ox O2 Delivery O2 Flow Rate FiO2 06/30/19 10:42 Room Air 06/30/19 08:00 78 06/30/19 08:00 Room Air 06/30/19 08:00 98.2 75 18 137/66 (89) 96 06/30/19 04:00 98.7 71 20 159/83 (108) 98 06/30/19 04:00 76 06/30/19 04:00 Room Air 06/30/19 00:00 Room Air 06/30/19 00:00 98.6 63 20 159/67 (97) 98 06/30/19 00:00 69 06/29/19 20:00 98.8 62 20 119/62 (81) 100 06/29/19 20:00 Room Air 06/29/19 18:00 Room Air 06/29/19 17:44 57 06/29/19 17:00 97.3 60 20 117/63 (81) 98 06/29/19 16:46 62 16 107/43 99 Room Air 06/29/19 16:00 97.0 60 17 108/50 98 Room Air 06/29/19 15:19 63 13 101/59 99 Room Air 06/29/19 14:27 97.9 65 19 78/36 Room Air 06/29/19 14:05 64 18 Room Air 06/29/19 13:55 98.2 71 21 82/31 (48) 100 Room Air General: Awake and alert, no acute distress HEENT: NC/AT. EOMI. Neck: Supple, trachea midline Chest Wall: No tenderness, no deformity Cardiovascular: RRR. S1 and S2 normal. No murmur appreciated Resp: Normal work of breathing Abdomen: Abdomen is soft, nd, nt, Laparotomy scars++ : Parker in place with no output Skin: Intact. No abrasions, laceration or rash over the exposed skin MSK: Normal tone and bulk. Moving all extremities Neuro: Awake and alert. Mentating appropriately Labs: reviewed Imaging: ntoed Assessment and Recs: # Esophageal cancer --> is biopsy proven approx 1.5 months ago, was scheduled for endoscopy and surgery at [facility] [place] --> once patient stabilized, consider gi procedure per Dr. Lopez --> endoscopy can also be done at [facility] [place] as per gi --> staging with EUS and CT scan (ordered here) --> ENT and Gi to eval outpatient as well # DVT Right arm has been on anticoag --> started on eliquis dosing --> continue after any potential procedure # Anemia of chronic disease, r/o gi bleed --> anemia panel ordered --> occult pending, gi to eval # DM2 - a1c goal <7 --> accuchecks qac and qsh # HTN - sbp goal <140 --> as per cards recs # Sepsis has been started on abx # ESRD s/p transplant Greatly appreciate consultation. Eduardo Galeano MD Jun 30, 2019 10:34
--- NOTE | 2019-06-30 10:45 | Cardiac Electrophysiology PN ---
Subjective Subjective [id number] Also was on Eliquis 2.5 bid for DVT Right arm Objective Last 24 Hour Vital Signs Date Time Temp Pulse Resp B/P (MAP) Pulse Ox O2 Delivery O2 Flow Rate FiO2 06/30/19 08:00 98.2 75 18 137/66 (89) 96 06/30/19 04:00 98.7 71 20 159/83 (108) 98 06/30/19 04:00 76 06/30/19 04:00 Room Air 06/30/19 00:00 Room Air 06/30/19 00:00 98.6 63 20 159/67 (97) 98 06/30/19 00:00 69 06/29/19 20:00 98.8 62 20 119/62 (81) 100 06/29/19 20:00 Room Air 06/29/19 18:00 Room Air 06/29/19 17:44 57 06/29/19 17:00 97.3 60 20 117/63 (81) 98 06/29/19 16:46 62 16 107/43 99 Room Air 06/29/19 16:00 97.0 60 17 108/50 98 Room Air 06/29/19 15:19 63 13 101/59 99 Room Air 06/29/19 14:27 97.9 65 19 78/36 Room Air 06/29/19 14:05 64 18 Room Air 06/29/19 13:55 98.2 71 21 82/31 (48) 100 Room Air Intake and Output 06/29/19 06/30/19 19:00 07:00 Intake Total 2055 ml 1636.25 ml Output Total 210 ml 400 ml Balance 1845 ml 1236.25 ml Intake IV Total 2055 ml 1636.25 ml Output Urine Total 210 ml 400 ml Laboratory Tests Test 06/29/19 14:08 06/29/19 15:03 06/30/19 03:40 06/30/19 06:45 White Blood Count 17.2 K/UL (4.8-10.8) H 11.6 K/UL (4.8-10.8) H Red Blood Count 4.26 M/UL (4.70-6.10) L 4.01 M/UL (4.70-6.10) L Hemoglobin 11.7 G/DL (14.2-18.0) L 11.1 G/DL (14.2-18.0) L Hematocrit 37.0 % (42.0-52.0) L 34.6 % (42.0-52.0) L Mean Corpuscular Volume 87 FL (80-99) 86 FL (80-99) Mean Corpuscular Hemoglobin 27.4 PG (27.0-31.0) 27.8 PG (27.0-31.0) Mean Corpuscular Hemoglobin Concent 31.6 G/DL (32.0-36.0) L 32.2 G/DL (32.0-36.0) Red Cell Distribution Width 18.2 % (11.6-14.8) H 18.0 % (11.6-14.8) H Platelet Count 217 K/UL (150-450) 230 K/UL (150-450) Mean Platelet Volume 6.3 FL (6.5-10.1) L 6.6 FL (6.5-10.1) Neutrophils (%) (Auto) 79.8 % (45.0-75.0) H 64.9 % (45.0-75.0) Lymphocytes (%) (Auto) 11.8 % (20.0-45.0) L 21.5 % (20.0-45.0) Monocytes (%) (Auto) 6.2 % (1.0-10.0) 8.3 % (1.0-10.0) Eosinophils (%) (Auto) 1.8 % (0.0-3.0) 4.4 % (0.0-3.0) H Basophils (%) (Auto) 0.5 % (0.0-2.0) 1.0 % (0.0-2.0) Prothrombin Time 10.7 SEC (9.30-11.50) Prothromb Time International Ratio 1.0 (0.9-1.1) Activated Partial Thromboplast Time 27 SEC (23-33) Sodium Level 134 MMOL/L (136-145) L 139 MMOL/L (136-145) Potassium Level 4.7 MMOL/L (3.5-5.1) 4.6 MMOL/L (3.5-5.1) Chloride Level 105 MMOL/L (98-107) 110 MMOL/L (98-107) H Carbon Dioxide Level 18 MMOL/L (21-32) L 18 MMOL/L (21-32) L Anion Gap 11 mmol/L (5-15) 11 mmol/L (5-15) Blood Urea Nitrogen 32 mg/dL (7-18) H 27 mg/dL (7-18) H Creatinine 1.8 MG/DL (0.55-1.30) H 1.4 MG/DL (0.55-1.30) H Estimat Glomerular Filtration Rate mL/min (>60) mL/min (>60) Glucose Level 156 MG/DL (74-106) H 81 MG/DL (74-106) Lactic Acid Level 1.90 mmol/L (0.4-2.0) Calcium Level 8.5 MG/DL (8.5-10.1) 9.0 MG/DL (8.5-10.1) Phosphorus Level 2.8 MG/DL (2.5-4.9) 3.3 MG/DL (2.5-4.9) Magnesium Level 1.3 MG/DL (1.8-2.4) L 2.1 MG/DL (1.8-2.4) Total Bilirubin 0.7 MG/DL (0.2-1.0) 0.5 MG/DL (0.2-1.0) Aspartate Amino Transf (AST/SGOT) 71 U/L (15-37) H 45 U/L (15-37) H Alanine Aminotransferase (ALT/SGPT) 135 U/L (12-78) H 107 U/L (12-78) H Alkaline Phosphatase 168 U/L (46-116) H 152 U/L (46-116) H Total Creatine Kinase 16 U/L (26-308) L Creatine Kinase MB 0.5 NG/ML (0.0-3.6) Creatine Kinase MB Relative Index 3.1 Troponin I 0.004 ng/mL (0.000-0.056) Total Protein 5.9 G/DL (6.4-8.2) L 6.1 G/DL (6.4-8.2) L Albumin 2.5 G/DL (3.4-5.0) L 2.5 G/DL (3.4-5.0) L Globulin 3.4 g/dL Albumin/Globulin Ratio 0.7 (1.0-2.7) L Urine Color Yellow Urine Appearance Cloudy Urine pH 5 (4.5-8.0) Urine Specific [place] 1.010 (1.005-1.035) Urine Protein 3+ (NEGATIVE) H Urine Glucose (UA) Negative (NEGATIVE) Urine Ketones 1+ (NEGATIVE) H Urine Blood 1+ (NEGATIVE) H Urine Nitrite Negative (NEGATIVE) Urine Bilirubin Negative (NEGATIVE) Urine Urobilinogen Normal MG/DL (0.0-1.0) Urine Leukocyte Esterase 3+ (NEGATIVE) H Urine RBC 5-10 /HPF (0 - 0) H Urine WBC Tntc /HPF (0 - 0) H Urine Squamous Epithelial Cells None /LPF (NONE/OCC) Urine Bacteria Many /HPF (NONE) H Hemoglobin A1c 5.1 % (4.3-6.0) Uric Acid 6.8 MG/DL (2.6-7.2) Direct Bilirubin 0.1 MG/DL (0.0-0.3) Gamma Glutamyl Transpeptidase 407 U/L (5-85) H Ammonia 35 umol/L (11-32) H C-Reactive Protein, Quantitative 8.1 mg/dL (0.00-0.90) H Pro-B-Type Natriuretic Peptide 824 pg/mL (0-125) H Triglycerides Level 128 MG/DL (30-150) Cholesterol Level 142 MG/DL (< 200) LDL Cholesterol 75 mg/dL (<100) HDL Cholesterol 41 MG/DL (40-60) Cholesterol/HDL Ratio 3.5 (3.3-4.4) Prostate Specific Antigen Pending Thyroid Stimulating Hormone (TSH) 0.462 uiU/mL (0.358-3.740) Urine Eosinophils None seen (NONE SEEN) Urine Random Sodium 125 mmol/L (20-110) H Microbiology Date/Time Source Procedure Growth Status 06/29/19 15:03 Urine,Clean Catch Urine Culture - Preliminary Gram Negative Bacillus 1 Resulted Omkar Vera MD Jun 30, 2019 10:45
--- NOTE | 2019-06-30 10:48 | GI Initial Consult Note ---
History of Present Illness General Date patient seen: Jun 30, 2019 Time patient seen: 10:40 Reason for Hospitalization: Altered Level of Consciousness Referring physician: FAVIOLA Reason for Consultation: ESOPHAGEAL CA Present Illness HPI This is a 74-year-old male with a history of ESRD status post kidney transplant in the 1980s, prior stroke with some residual weakness on the left side, CAD status post 3 stents, diabetes, hypertension, and urinary tract infection having recently finished a course of Zosyn 1 week ago and presents for evaluation of altered mental status and hypotension. The patient is primarily [place]ic-speaking however his son is here who provides additional history is able to translate for the patient. States that yesterday, his family went to check in on him as the patient lives on his own found him somewhat confused though generally acting normally. This morning, he was found more significantly altered and confused though conscious and denied any complaints of pain from abrasion, respiratory distress. Notably, the son states that the patient recently finished a course of Zosyn for urinary tract infection approximately 1 week ago and had a Parker catheter placed at that time for retention from his BPH. He denies any dysuria or hematuria, fevers, chest pain , shortness of breath, headache, vision changes, nausea, vomiting, diarrhea or abdominal pain. Son states that he is now alert and oriented and behaving at his baseline. EMS arrived with the patient stating that his initial blood pressures were in the 70s systolic and improved to the 80s systolic after approximately 300 cc of IV fluids which continued to run. No reports of trauma from patient or family. He does state that he has not been drinking or eating over the past 2 days because he has been feeling fatigued. GI consulted for reported possible history of esophageal cancer. ROS limited. Patient seen, awake alert and oriented no apparent distress currently tolerating mechanical soft diet. Family members at bedside reports that the patient has a history of esophageal cancer and was scheduled for surgery today at [facility]. Patient presented with WBC of 17.2, GGT of 407, AST of 35 , ALT of 107, alkaline phosphatase 152. Unknown history of endoscopic colonoscopy. Home Meds Active Scripts Isosorbide Mononitrate (ISOSORBIDE MONONITRATE ER) 30 Mg Tab.er.24h, 90 MG ORAL DAILY, #90 TAB 0 Refills Prov:Mery Gaston M.D. 01/20/18 Metoprolol Tartrate (Metoprolol Tartrate) 25 Mg Tablet, 25 MG ORAL EVERY 12 HOURS, #60 TAB 0 Refills Prov:Mery Gaston M.D. 01/20/18 Nifedipine Xl* (PROCARDIA XL*) 30 Mg Tab.er.24, 60 MG ORAL BID, #60 TAB 0 Refills Prov:Mery Gaston M.D. 01/20/18 Cefuroxime Axetil (CEFTIN) 250 Mg/5 Ml Susp.recon, 250 MG PO BID for 3 Days, #6 ML Prov:Mery Gaston M.D. 01/20/18 Reported Medications Insulin Aspart (NOVOLOG) 100 Unit/1 Ml Cartridge, 100 UNIT SQ 06/29/19 Epoetin Rene (PROCRIT) 10,000 Unit/1 Ml Vial, 52118 UNIT SUBQ 2XW PRN for Other , VIAL 06/29/19 Ticagrelor* (BRILINTA*) 90 Mg Tablet, 90 MG PO BID PRN for other, TAB 06/29/19 Methocarbamol* (METHOCARBAMOL*) 500 Mg Tablet, 250 MG ORAL TID PRN for For Pain , #15 TAB 0 Refills 06/29/19 Tramadol Hcl* (ULTRAM*) 50 Mg Tablet, 100 MG ORAL Q6H PRN for For Pain, #12 TAB 0 Refills 06/29/19 Ondansetron* (ZOFRAN*) 4 Mg Tablet, 4 MG ORAL Q8HR PRN for Nausea & Vomiting, TAB 06/29/19 Insulin Glargine,Hum.rec.anlog (Renee Sandoval) 300 Unit/1 Ml Insuln.pen, 40 UNIT SQ DAILY, EA 06/29/19 Nifedipine (Nifedipine*) 20 Mg Capsule, 90 MG ORAL DAILY, CAP 06/29/19 Metoprolol Tartrate* (METOPROLOL TARTRATE*) 50 Mg Tablet, 50 MG ORAL EVERY 12 HOURS, TAB 06/29/19 Metoclopramide Hcl* (METOCLOPRAMIDE HCL*) 5 Mg Tablet, 5 MG ORAL TID PRN for other, TAB 06/29/19 Losartan Potassium* (LOSARTAN POTASSIUM*) 25 Mg Tablet, 25 MG ORAL DAILY, TAB 06/29/19 Atorvastatin Calcium* (LIPITOR*) 10 Mg Tablet, 10 MG ORAL BEDTIME, TAB 06/29/19 Levothyroxine Sodium (LEVOTHYROXINE SODIUM) 175 Mcg Tablet, 112 MCG ORAL DAILY, TAB Take in the morning on an empty stomach, at least 30 minutes before food. 06/29/19 Docusate Sodium* (COLACE*) 100 Mg Capsule, 100 MG ORAL TWICE A DAY, CAP 06/29/19 Bumetanide* (BUMETANIDE*) 0.5 Mg Tablet, 0.5 MG ORAL DAILY, TAB 06/29/19 Apixaban (ELIQUIS) 2.5 Mg Tablet, 2.5 MG PO BID, TAB 06/29/19 Isosorbide Mononitrate (ISOSORBIDE MONONITRATE) 20 Mg Tablet, 60 MG PO DAILY, TAB 06/29/19 Multivitamin With Minerals (MULTIVITAMINS WITH MINERALS*) 1 Each Tablet, 1 TAB ORAL DAILY, TAB 06/29/19 Sennosides (SENNA) 8.6 Mg Tablet, 2 TAB PO BID, TAB 06/29/19 Hydralazine Hcl* (HYDRALAZINE HCL*) 100 Mg Tablet, 100 MG ORAL EVERY 8 HOURS, TAB 06/29/19 Acetaminophen (Acetaminophen) 500 Mg Tablet, 1000 MG ORAL Q8HR for PAIN, TAB 06/29/19 Sucralfate* (CARAFATE*) 1 Gm Tablet, 1 GM ORAL TID, TAB 06/29/19 Linaclotide (LINZESS) 145 Mcg Capsule, 145 MCG PO, CAP 01/17/18 Insulin Glargine (LANTUS) 100 Unit/1 Ml Insuln.pen, 0 SUBQ BEDTIME, #1 EA 0 Refills 01/17/18 Hydrocodone Bit/Acetaminophen 10-325* (NORCO 10-325*) 1 Each Tablet, 1 TAB ORAL Q4H PRN for For Pain, TAB 0 Refills PRN PAIN 01/17/18 Gabapentin* (GABAPENTIN*) 600 Mg Tablet, 600 MG ORAL, TAB 01/17/18 Furosemide* (LASIX*) 20 Mg Tablet, 20 MG ORAL DAILY, TAB 01/17/18 Fludrocortisone Acetate (FLUDROCORTISONE ACETATE) 0.1 Mg Tablet, 0.1 MG PO, TAB 01/17/18 Guaifenesin/Dextromethorphan (DIABETIC TUSSIN DM LIQUID) 118 Ml Liquid, PO, ML 01/17/18 Ezetimibe (ZETIA*) 10 Mg Tablet, 10 MG ORAL BEDTIME, TAB 01/17/18 Cyclosporine* (CYCLOSPORINE*) 100 Mg Capsule, 100 MG PO, CAP 01/17/18 Benzonatate* (BENZONATATE*) 100 Mg Capsule, 100 MG ORAL, PERLE 01/17/18 Albuterol Sulfate* (ALBUTEROL SULFATE HHN*) 2.5 Mg/3 Ml Vial.neb, INH Q4H PRN for Shortness of Breath, EA 01/17/18 Losartan Potassium* (LOSARTAN POTASSIUM*) 50 Mg Tablet, 50 MG ORAL DAILY, TAB 01/17/18 Magnesium (MAGNESIUM) 250 Mg Tablet, 500 MG PO, TAB 01/17/18 Pantoprazole* (PANTOPRAZOLE*) 40 Mg Tablet.dr, 40 MG ORAL DAILY, TAB 01/17/18 Prednisone* (PREDNISONE*) 10 Mg Tablet, 5 MG ORAL DAILY, #10 TAB 0 Refills 01/17/18 Tamsulosin Hcl (TAMSULOSIN HCL*) 0.4 Mg Cap.er.24h, 0.8 MG ORAL BEDTIME, CAP 10/24/15 Aspirin* (ASPIR 81*) 81 Mg Tablet.dr, 81 MG ORAL DAILY, TAB 10/24/15 Ezetimibe (ZETIA*) 10 Mg Tablet, 10 MG ORAL BEDTIME, TAB 10/24/15 Clopidogrel Bisulfate* (PLAVIX*) 75 Mg Tablet, 75 MG ORAL DAILY, TAB 10/24/15 Atorvastatin Calcium* (ATORVASTATIN CALCIUM*) 40 Mg Tablet, 40 MG ORAL BEDTIME, TAB 10/24/15 Cyclosporine* (CYCLOSPORINE*) 100 Mg Capsule, 50 MG PO BID, CAP 10/24/15 Sitagliptin (Januvia) 100 Mg Tab, 100 MG ORAL DAILY, TAB 10/24/15 Med list reviewed/reconciled: Yes Allergies: Coded Allergies: AZATHIOPRINE (Verified Allergy, Unknown, 11/20/10) Patient History Limited by: language barrier History Provided By: Patient, Family Member, Medical Record PMH Narrative PMH: End-stage renal disease, CAD, hypertension, diabetes, BPH, prior stroke PSH: Kidney transplant, laparoscopy, nephrectomy, PCI Allergies: Azathioprine Social Hx: Denies drinking alcohol, tobacco use or drug use Allergies: Coded Allergies: AZATHIOPRINE (Verified Allergy, Unknown, 11/20/10) Patient History Limited by: language barrier Nursing Documentation-H Past Medical History: No History, Except For Hx Cardiac Problems: Yes Hx Hypertension: Yes Hx Asthma: No - BPH Hx Diabetes: Yes Hx Cancer: No Hx Gastrointestinal Problems: No Hx Neurological Problems: Yes Hx Cerebrovascular Accident: Yes Hx Transient Ischemic Attacks: Yes Hx Dementia: Yes Hx Meningitis: No Hx Encephalitis: No Hx Seizures: No Hx Epilepsy: No Hx Multiple Sclerosis: No Hx Cerebral Palsy: No Hx Amyotrophic Lat Sclerosis: No Hx Guillian-Concrete Syndrome: No Hx Paralysis: No Hx Peripheral Neuropathy: No Hx Spinal Cord Injury: No Hx Head Trauma: No Hx Traumatic Brain Injury: No Hx Memory Loss: No Hx Concentration Difficulty: No Hx Speech Problem: No Hx Tremors: No Hx Vertigo: No Hx Dizziness: No Hx Syncope: No Hx Headaches: No Hx Aphasia: No Hx Dysphasia: No Hx Numbness: No Hx Weakness: Yes - Left arm residual of CVA Hx Fatigue: No Hx Neurologic Surgery: No Hx Brain Shunt: No Social History: Denies: smoking, alcohol use, drug use, other Review of Systems All Other Systems: negative except mentioned in HPI Physical Exam Vital Signs Date Time Temp Pulse Resp B/P (MAP) Pulse Ox O2 Delivery O2 Flow Rate FiO2 06/29/19 13:55 98.2 71 21 82/31 (48) 100 Room Air Sp02 EP Interpretation: reviewed, normal Labs Laboratory Tests Test 06/29/19 14:08 06/29/19 15:03 06/30/19 03:40 06/30/19 06:45 White Blood Count 17.2 K/UL (4.8-10.8) H 11.6 K/UL (4.8-10.8) H Red Blood Count 4.26 M/UL (4.70-6.10) L 4.01 M/UL (4.70-6.10) L Hemoglobin 11.7 G/DL (14.2-18.0) L 11.1 G/DL (14.2-18.0) L Hematocrit 37.0 % (42.0-52.0) L 34.6 % (42.0-52.0) L Mean Corpuscular Volume 87 FL (80-99) 86 FL (80-99) Mean Corpuscular Hemoglobin 27.4 PG (27.0-31.0) 27.8 PG (27.0-31.0) Mean Corpuscular Hemoglobin Concent 31.6 G/DL (32.0-36.0) L 32.2 G/DL (32.0-36.0) Red Cell Distribution Width 18.2 % (11.6-14.8) H 18.0 % (11.6-14.8) H Platelet Count 217 K/UL (150-450) 230 K/UL (150-450) Mean Platelet Volume 6.3 FL (6.5-10.1) L 6.6 FL (6.5-10.1) Neutrophils (%) (Auto) 79.8 % (45.0-75.0) H 64.9 % (45.0-75.0) Lymphocytes (%) (Auto) 11.8 % (20.0-45.0) L 21.5 % (20.0-45.0) Monocytes (%) (Auto) 6.2 % (1.0-10.0) 8.3 % (1.0-10.0) Eosinophils (%) (Auto) 1.8 % (0.0-3.0) 4.4 % (0.0-3.0) H Basophils (%) (Auto) 0.5 % (0.0-2.0) 1.0 % (0.0-2.0) Prothrombin Time 10.7 SEC (9.30-11.50) Prothromb Time International Ratio 1.0 (0.9-1.1) Activated Partial Thromboplast Time 27 SEC (23-33) Sodium Level 134 MMOL/L (136-145) L 139 MMOL/L (136-145) Potassium Level 4.7 MMOL/L (3.5-5.1) 4.6 MMOL/L (3.5-5.1) Chloride Level 105 MMOL/L (98-107) 110 MMOL/L (98-107) H Carbon Dioxide Level 18 MMOL/L (21-32) L 18 MMOL/L (21-32) L Anion Gap 11 mmol/L (5-15) 11 mmol/L (5-15) Blood Urea Nitrogen 32 mg/dL (7-18) H 27 mg/dL (7-18) H Creatinine 1.8 MG/DL (0.55-1.30) H 1.4 MG/DL (0.55-1.30) H Estimat Glomerular Filtration Rate mL/min (>60) mL/min (>60) Glucose Level 156 MG/DL (74-106) H 81 MG/DL (74-106) Lactic Acid Level 1.90 mmol/L (0.4-2.0) Calcium Level 8.5 MG/DL (8.5-10.1) 9.0 MG/DL (8.5-10.1) Phosphorus Level 2.8 MG/DL (2.5-4.9) 3.3 MG/DL (2.5-4.9) Magnesium Level 1.3 MG/DL (1.8-2.4) L 2.1 MG/DL (1.8-2.4) Total Bilirubin 0.7 MG/DL (0.2-1.0) 0.5 MG/DL (0.2-1.0) Aspartate Amino Transf (AST/SGOT) 71 U/L (15-37) H 45 U/L (15-37) H Alanine Aminotransferase (ALT/SGPT) 135 U/L (12-78) H 107 U/L (12-78) H Alkaline Phosphatase 168 U/L (46-116) H 152 U/L (46-116) H Total Creatine Kinase 16 U/L (26-308) L Creatine Kinase MB 0.5 NG/ML (0.0-3.6) Creatine Kinase MB Relative Index 3.1 Troponin I 0.004 ng/mL (0.000-0.056) Total Protein 5.9 G/DL (6.4-8.2) L 6.1 G/DL (6.4-8.2) L Albumin 2.5 G/DL (3.4-5.0) L 2.5 G/DL (3.4-5.0) L Globulin 3.4 g/dL Albumin/Globulin Ratio 0.7 (1.0-2.7) L Urine Color Yellow Urine Appearance Cloudy Urine pH 5 (4.5-8.0) Urine Specific [place] 1.010 (1.005-1.035) Urine Protein 3+ (NEGATIVE) H Urine Glucose (UA) Negative (NEGATIVE) Urine Ketones 1+ (NEGATIVE) H Urine Blood 1+ (NEGATIVE) H Urine Nitrite Negative (NEGATIVE) Urine Bilirubin Negative (NEGATIVE) Urine Urobilinogen Normal MG/DL (0.0-1.0) Urine Leukocyte Esterase 3+ (NEGATIVE) H Urine RBC 5-10 /HPF (0 - 0) H Urine WBC Tntc /HPF (0 - 0) H Urine Squamous Epithelial Cells None /LPF (NONE/OCC) Urine Bacteria Many /HPF (NONE) H Hemoglobin A1c 5.1 % (4.3-6.0) Uric Acid 6.8 MG/DL (2.6-7.2) Direct Bilirubin 0.1 MG/DL (0.0-0.3) Gamma Glutamyl Transpeptidase 407 U/L (5-85) H Ammonia 35 umol/L (11-32) H C-Reactive Protein, Quantitative 8.1 mg/dL (0.00-0.90) H Pro-B-Type Natriuretic Peptide 824 pg/mL (0-125) H Triglycerides Level 128 MG/DL (30-150) Cholesterol Level 142 MG/DL (< 200) LDL Cholesterol 75 mg/dL (<100) HDL Cholesterol 41 MG/DL (40-60) Cholesterol/HDL Ratio 3.5 (3.3-4.4) Prostate Specific Antigen Pending Thyroid Stimulating Hormone (TSH) 0.462 uiU/mL (0.358-3.740) Urine Eosinophils None seen (NONE SEEN) Urine Random Sodium 125 mmol/L (20-110) H General Appearance: well appearing, no apparent distress, alert Head: normocephalic EENT: PERRL/EOMI, normal ENT inspection Neck: supple Respiratory: normal breath sounds, no respiratory distress Cardiovascular: normal rate Gastrointestinal: normal inspection, non tender, soft, normal bowel sounds, non -distended Rectal: deferred Genitourinary: deferred Musculoskeletal: normal inspection, back normal Neurologic: normal inspection, alert, oriented x3, responsive Psychiatric: normal inspection, judgement/insight normal, memory normal Skin: normal inspection, normal color, no rash, warm/dry, palpation normal, well hydrated Lymphatic: normal inspection, no adenopathy Current Medications Current Medications Medications (Trade) Dose Ordered Sig/Lauren Route PRN Reason Start Time Stop Time Status Last Admin Dose Admin Acetaminophen (Tylenol) 650 mg Q4H PRN ORAL Mild Pain (Pain Scale 1-3) 06/29/19 17:15 07/29/19 17:14 Bisacodyl (Dulcolax) 10 mg DAILYPRN PRN RECTAL Constipation 06/29/19 17:30 07/29/19 17:14 Cefepime HCl 1 gm/ Dextrose 55 ml @ 110 mls/hr Q24H IVPB 06/30/19 16:00 07/07/19 15:59 Dextrose (Dextrose 50%) 25 ml Q30M PRN IV Hypoglycemia 06/30/19 10:30 07/30/19 10:29 Dextrose (Dextrose 50%) 50 ml Q30M PRN IV Hypoglycemia 06/30/19 11:30 07/30/19 11:29 Dextrose/Sodium Chloride 1,000 ml @ 75 mls/hr [id number] IV 06/29/19 17:30 07/29/19 17:29 06/30/19 06:19 Diphenhydramine HCl (Benadryl) 25 mg Q6H PRN ORAL Itching/Pruritis 06/29/19 17:15 07/29/19 17:14 Docusate Sodium (Colace) 100 mg TID ORAL 06/30/19 09:00 07/29/19 20:59 06/30/19 09:28 Heparin Sodium (Porcine) (Heparin 5000 units/ml) 5,000 units EVERY 12 HOURS SUBQ 06/29/19 21:00 07/29/19 20:59 06/30/19 09:29 Insulin Aspart (NovoLOG) BEFORE MEALS AND HS SUBQ 06/30/19 11:30 07/30/19 11:29 Lorazepam (Ativan 2mg/ml 1ml) 0.5 mg Q4H PRN IV For Anxiety 06/29/19 17:15 07/06/19 17:14 Magnesium Hydroxide (Mom) 30 ml HSPRN PRN ORAL Constipation 06/29/19 17:15 07/29/19 17:14 Morphine Sulfate (Morphine Sulfate) 1 mg Q6H PRN IVP For Pain 4-10 06/29/19 17:15 07/06/19 17:14 Nitroglycerin (Ntg) 0.4 mg Q5M PRN SL Prn Chest Pain 06/29/19 17:15 07/29/19 17:14 Ondansetron HCl (Zofran) 4 mg Q6H PRN IVP Nausea & Vomiting 06/29/19 17:15 07/29/19 17:14 Pantoprazole (Protonix) 40 mg ACBREAKFAST IVP 06/30/19 06:30 07/30/19 06:29 06/30/19 06:08 Temazepam (Restoril) 15 mg HSPRN PRN ORAL Insomnia 06/29/19 17:15 07/06/19 17:14 GI: Plan Problems: (1) Esophageal cancer (2) Anemia of chronic disease (3) DM2 (diabetes mellitus, type 2) Plan Patient reported that he was scheduled today for endoscopy and surgery at [facility] [place]. No GI procedures planned at this time, recommend stabilize patient for transfer. Symptomatic treatment Pain management Zofran as needed Advance diet as tolerated Antibiotics Follow labs, hepatitis panel Discussed with Dr. Lopez. Thank you for this patient referral, we will follow. The patient was seen and examined at bedside and all new and available data was reviewed in the patients chart. I agree with the above findings, impression and plan. (Patient seen earlier today. Signature stamp does not reflect patient encounter time.). - MD Velia Moser,[employer] INSTRUCTOR Jun 30, 2019 10:48
[2019-06-30] MEDS: NovoLOG Insulin Flexpen SUBQ SCH ×3 (11:30→21:17)
[2019-06-30 11:43] LABS: % IRON SATURATION 10 % (15-50); IRON 17 ug/dL (50-175); TOTAL IRON BINDING CAPACITY 175 ug/dL (250-450)
[2019-06-30 11:56] LABS: FERRITIN 155 NG/ML (8-388); LACTATE DEHYDROGENASE 128 U/L (81-234)
[2019-06-30 12:00] VITALS: BP 136/71
[2019-06-30] MEDS: Aspirin Baby 81mg ORAL SCH (12:27)
[2019-06-30] MEDS ORDERED: Morphine Sulfate 2mg/ml Inj(IV/IM USE ONLY) IVP PRN (13:15)
--- NOTE | 2019-06-30 13:49 | NUR ---
RD ASSESSMENT & RECOMMENDATIONS SEE CARE ACTIVITY FOR COMPLETE ASSESSMENT DAILY ESTIMATED NEEDS: Needs based on Wt loss, CA, DM/ 57.7kg 30-35 kcals/kg 6047-6413 total kcals 1-1.5 g protein/kg 58-87 g total protein 25-30 mL/kg 1081-5409 total fluid mLs NUTRITION DIAGNOSIS: *Increased kcal/prot intake needs R/T catabolic dx, recent wt loss as evidenced by dx of esophageal CA, CG reports significant wt loss of 30lbs/19% in ~8 mo. *Swallowing difficulty R/T dysphagia, esophageal CA, h/o CVA as evidenced by [employer] P[employer] WORKER recommends mech soft finely chopped texture. CURRENT DIET:CCHO MED, mech soft chopped + Glucerna TID -> NPO for US abdomen PO DIET RECOMMENDATIONS: CCHO MED, LOW NA/ texture per [employer] P[employer] WORKER + Glucerna TID w/ meals ADDITIONAL RECOMMENDATIONS: * Calibrated bedscale wt for accurate CBW -> Weekly wt monitoring given wt loss * Monitor PO intake and tolerance closely - rec liberalized REGULAR diet if poor PO intake cont to be seen * Monitor PO tolerance: occasional N/V per CG
--- NOTE | 2019-06-30 13:52 | History and Physical ---
History of Present Illness General Date patient seen: Jun 30, 2019 Reason for Hospitalization: Altered Level of Consciousness Present Illness HPI 74 yo M with PMH of recently dx esophageal CA (Pending EGD and surgery at [facility]), HTN, hypothyroidism, RUE DVT (on eliquis), ESRD s/p transplant on immunosuppressants, ACD, DM2, urinary retention s/p recent peterson placement, was brought in by family for weakness and altered mental status. States pt has recurrent UTIs 2/2 urinary retention, most recently treated about 1 week ago with Zosyn and had peterson placed. In the ED, was noted to be hypotensive, responded to fluids, and started on meropenem for UTI Allergies: Coded Allergies: AZATHIOPRINE (Verified Allergy, Unknown, 11/20/10) Medication History Scheduled Acetaminophen (Acetaminophen), 1,000 MG ORAL Q8HR, (Reported) Apixaban (Eliquis), 2.5 MG PO BID, (Reported) Aspirin* (Aspir 81*), 81 MG ORAL DAILY, (Reported) Atorvastatin Calcium* (Lipitor*), 10 MG ORAL BEDTIME, (Reported) Bumetanide* (Bumetanide*), 0.5 MG ORAL MORNING, (Reported) Cyclosporine (Cyclosporine), 50 MG PO BID, (Reported) Docusate Sodium* (Colace*), 100 MG ORAL TWICE A DAY, (Reported) Hydralazine Hcl* (Hydralazine Hcl*), 100 MG ORAL EVERY 8 HOURS, (Reported) Insulin Glargine,Hum.rec.anlog (Toujeo Solostar), 40 UNIT SQ DAILY, (Reported) Isosorbide Mononitrate (Isosorbide Mononitrate Er), 60 MG PO DAILY, (Reported) Levothyroxine Sodium* (Levoxyl*), 112 MCG ORAL DAILY, (Reported) Losartan Potassium* (Losartan Potassium*), 25 MG ORAL DAILY, (Reported) Metoclopramide Hcl* (Metoclopramide Hcl*), 5 MG ORAL TID, (Reported) Metoprolol Tartrate* (Metoprolol Tartrate*), 50 MG ORAL EVERY 12 HOURS, ( Reported) Nifedipine Xl* (Procardia Xl*), 90 MG ORAL DAILY, (Reported) Pantoprazole* (Pantoprazole*), 40 MG ORAL DAILY, (Reported) Sennosides (Senna), 2 TAB PO BID, (Reported) Sucralfate* (Carafate*), 1 GM ORAL AC, (Reported) Tamsulosin Hcl (Tamsulosin Hcl*), 0.8 MG ORAL BEDTIME, (Reported) Scheduled PRN Epoetin Rene (Procrit), 10,000 UNIT SUBQ 2XW PRN for Other, (Reported) Hydrocodone Bit/Acetaminophen 10-325* ([place] 10-325*), 1 TAB ORAL Q4H PRN for For Pain, (Reported) Insulin Aspart (Novolog), 100 UNIT SQ for HYPOGLYCEMIA, (Reported) Methocarbamol* (Methocarbamol*), 250 MG ORAL TID PRN for For Pain, (Reported) Ondansetron* (Zofran*), 4 MG ORAL Q8HR PRN for Nausea & Vomiting, (Reported) Ticagrelor* (Brilinta*), 90 MG PO BID PRN for other, (Reported) Tramadol Hcl* (Ultram*), 100 MG ORAL Q6H PRN for For Pain, (Reported) Miscellaneous Medications Multivitamin (Multivitamins), 1 EACH PO, (Reported) Prednisone (Prednisone), 5 MG PO, (Reported) Discontinued Medications Albuterol Sulfate* (Albuterol Sulfate Hhn*), Unknown Dose INH Q4H PRN for Shortness of Breath, (Reported) Discontinued Reason: Therapy completed Atorvastatin Calcium* (Atorvastatin Calcium*), 40 MG ORAL BEDTIME, (Reported) Discontinued Reason: Therapy completed Benzonatate* (Benzonatate*), 100 MG ORAL, (Reported) Discontinued Reason: Therapy completed Cefuroxime Axetil (Ceftin), 250 MG PO BID Discontinued Reason: Therapy completed Clopidogrel Bisulfate* (Plavix*), 75 MG ORAL DAILY, (Reported) Discontinued Reason: Therapy completed Cyclosporine* (Cyclosporine*), 50 MG PO BID, (Reported) Discontinued Reason: Prescription changed Ezetimibe (Zetia*), 10 MG ORAL BEDTIME, (Reported) Discontinued Reason: Therapy completed Ezetimibe (Zetia*), 10 MG ORAL BEDTIME, (Reported) Discontinued Reason: Therapy completed Fludrocortisone Acetate (Fludrocortisone Acetate), 0.1 MG PO, (Reported) Discontinued Reason: Therapy completed Furosemide* (Lasix*), 20 MG ORAL DAILY, (Reported) Discontinued Reason: Therapy completed Gabapentin* (Gabapentin*), 600 MG ORAL, (Reported) Discontinued Reason: Therapy completed Guaifenesin/Dextromethorphan (Diabetic Tussin Dm Liquid), Unknown Dose PO, ( Reported) Discontinued Reason: Therapy completed Insulin Glargine (Lantus), 0 SUBQ BEDTIME, (Reported) Discontinued Reason: Therapy completed Isosorbide Mononitrate (Isosorbide Mononitrate), 60 MG PO DAILY, (Reported) Discontinued Reason: Prescription changed Levothyroxine Sodium (Levothyroxine Sodium), 112 MCG ORAL DAILY, (Reported) Discontinued Reason: Prescription changed Linaclotide (Linzess), 145 MCG PO, (Reported) Discontinued Reason: Therapy completed Losartan Potassium* (Losartan Potassium*), 50 MG ORAL DAILY, (Reported) Discontinued Reason: Therapy completed Magnesium (Magnesium), 500 MG PO, (Reported) Discontinued Reason: Therapy completed Metoprolol Tartrate (Metoprolol Tartrate), 25 MG ORAL EVERY 12 HOURS Discontinued Reason: Therapy completed Multivitamin With Minerals (Multivitamins With Minerals*), 1 TAB ORAL DAILY, ( Reported) Discontinued Reason: Prescription changed Nifedipine (Nifedipine*), 90 MG ORAL DAILY, (Reported) Discontinued Reason: Prescription changed Nifedipine Xl* (Procardia Xl*), 60 MG ORAL BID Discontinued Reason: Therapy completed Prednisone* (Prednisone*), 5 MG ORAL DAILY, (Reported) Discontinued Reason: Prescription changed Sitagliptin (Januvia), 100 MG ORAL DAILY, (Reported) Discontinued Reason: Therapy completed Patient History Healthcare decision maker Resuscitation status Full Code Advanced Directive on File Family History Family History: Patient reports no known family medical history. Review of Systems Constitutional: Reports: fever, malaise, weakness Eye: Reports: no symptoms ENT: Reports: no symptoms Respiratory: Reports: no symptoms Cardiovascular: Reports: no symptoms Gastrointestinal: Reports: no symptoms Genitourinary: Reports: retention Musculoskeletal: Reports: no symptoms Skin: Reports: no symptoms Psychiatric: Reports: no symptoms Endocrine: Reports: no symptoms Hematologic/Lymphatic: Reports: no symptoms Physical Exam General Appearance: no apparent distress, alert, thin Lines, tubes and drains: peripheral HEENT: normocephalic, atraumatic Neck: non-tender, normal alignment, supple Respiratory/Chest: chest wall non-tender, lungs clear, normal breath sounds Cardiovascular/Chest: normal peripheral pulses, normal rate, regular rhythm Abdomen: normal bowel sounds, non tender, soft, no organomegaly Genitourinary/Rectal: peterson Extremities: no edema Skin Exam: normal pigmentation 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 Last 24 Hour Vital Signs Date Time Temp Pulse Resp B/P (MAP) Pulse Ox O2 Delivery O2 Flow Rate FiO2 06/30/19 12:00 98.1 68 18 136/71 (92) 97 06/30/19 12:00 Room Air 06/30/19 10:42 Room Air 06/30/19 08:00 78 06/30/19 08:00 Room Air 06/30/19 08:00 98.2 75 18 137/66 (89) 96 06/30/19 04:00 98.7 71 20 159/83 (108) 98 06/30/19 04:00 76 06/30/19 04:00 Room Air 06/30/19 00:00 Room Air 06/30/19 00:00 98.6 63 20 159/67 (97) 98 06/30/19 00:00 69 06/29/19 20:00 98.8 62 20 119/62 (81) 100 06/29/19 20:00 Room Air 06/29/19 18:00 Room Air 06/29/19 17:44 57 06/29/19 17:00 97.3 60 20 117/63 (81) 98 06/29/19 16:46 62 16 107/43 99 Room Air 06/29/19 16:00 97.0 60 17 108/50 98 Room Air 06/29/19 15:19 63 13 101/59 99 Room Air 06/29/19 14:27 97.9 65 19 78/36 Room Air 06/29/19 14:05 64 18 Room Air 06/29/19 13:55 98.2 71 21 82/31 (48) 100 Room Air Intake and Output 06/29/19 06/30/19 19:00 07:00 Intake Total 2055 ml 1636.25 ml Output Total 210 ml 400 ml Balance 1845 ml 1236.25 ml Intake IV Total 2055 ml 1636.25 ml Output Urine Total 210 ml 400 ml Laboratory Tests Test 06/29/19 14:08 06/29/19 15:03 06/30/19 03:40 06/30/19 06:45 White Blood Count 17.2 K/UL (4.8-10.8) H 11.6 K/UL (4.8-10.8) H Red Blood Count 4.26 M/UL (4.70-6.10) L 4.01 M/UL (4.70-6.10) L Hemoglobin 11.7 G/DL (14.2-18.0) L 11.1 G/DL (14.2-18.0) L Hematocrit 37.0 % (42.0-52.0) L 34.6 % (42.0-52.0) L Mean Corpuscular Volume 87 FL (80-99) 86 FL (80-99) Mean Corpuscular Hemoglobin 27.4 PG (27.0-31.0) 27.8 PG (27.0-31.0) Mean Corpuscular Hemoglobin Concent 31.6 G/DL (32.0-36.0) L 32.2 G/DL (32.0-36.0) Red Cell Distribution Width 18.2 % (11.6-14.8) H 18.0 % (11.6-14.8) H Platelet Count 217 K/UL (150-450) 230 K/UL (150-450) Mean Platelet Volume 6.3 FL (6.5-10.1) L 6.6 FL (6.5-10.1) Neutrophils (%) (Auto) 79.8 % (45.0-75.0) H 64.9 % (45.0-75.0) Lymphocytes (%) (Auto) 11.8 % (20.0-45.0) L 21.5 % (20.0-45.0) Monocytes (%) (Auto) 6.2 % (1.0-10.0) 8.3 % (1.0-10.0) Eosinophils (%) (Auto) 1.8 % (0.0-3.0) 4.4 % (0.0-3.0) H Basophils (%) (Auto) 0.5 % (0.0-2.0) 1.0 % (0.0-2.0) Prothrombin Time 10.7 SEC (9.30-11.50) Prothromb Time International Ratio 1.0 (0.9-1.1) Activated Partial Thromboplast Time 27 SEC (23-33) Sodium Level 134 MMOL/L (136-145) L 139 MMOL/L (136-145) Potassium Level 4.7 MMOL/L (3.5-5.1) 4.6 MMOL/L (3.5-5.1) Chloride Level 105 MMOL/L (98-107) 110 MMOL/L (98-107) H Carbon Dioxide Level 18 MMOL/L (21-32) L 18 MMOL/L (21-32) L Anion Gap 11 mmol/L (5-15) 11 mmol/L (5-15) Blood Urea Nitrogen 32 mg/dL (7-18) H 27 mg/dL (7-18) H Creatinine 1.8 MG/DL (0.55-1.30) H 1.4 MG/DL (0.55-1.30) H Estimat Glomerular Filtration Rate mL/min (>60) mL/min (>60) Glucose Level 156 MG/DL (74-106) H 81 MG/DL (74-106) Lactic Acid Level 1.90 mmol/L (0.4-2.0) Calcium Level 8.5 MG/DL (8.5-10.1) 9.0 MG/DL (8.5-10.1) Phosphorus Level 2.8 MG/DL (2.5-4.9) 3.3 MG/DL (2.5-4.9) Magnesium Level 1.3 MG/DL (1.8-2.4) L 2.1 MG/DL (1.8-2.4) Total Bilirubin 0.7 MG/DL (0.2-1.0) 0.5 MG/DL (0.2-1.0) Aspartate Amino Transf (AST/SGOT) 71 U/L (15-37) H 45 U/L (15-37) H Alanine Aminotransferase (ALT/SGPT) 135 U/L (12-78) H 107 U/L (12-78) H Alkaline Phosphatase 168 U/L (46-116) H 152 U/L (46-116) H Total Creatine Kinase 16 U/L (26-308) L Creatine Kinase MB 0.5 NG/ML (0.0-3.6) Creatine Kinase MB Relative Index 3.1 Troponin I 0.004 ng/mL (0.000-0.056) 0.011 ng/mL (0.000-0.056) Total Protein 5.9 G/DL (6.4-8.2) L 6.1 G/DL (6.4-8.2) L Albumin 2.5 G/DL (3.4-5.0) L 2.5 G/DL (3.4-5.0) L Globulin 3.4 g/dL Albumin/Globulin Ratio 0.7 (1.0-2.7) L Urine Color Yellow Urine Appearance Cloudy Urine pH 5 (4.5-8.0) Urine Specific [place] 1.010 (1.005-1.035) Urine Protein 3+ (NEGATIVE) H Urine Glucose (UA) Negative (NEGATIVE) Urine Ketones 1+ (NEGATIVE) H Urine Blood 1+ (NEGATIVE) H Urine Nitrite Negative (NEGATIVE) Urine Bilirubin Negative (NEGATIVE) Urine Urobilinogen Normal MG/DL (0.0-1.0) Urine Leukocyte Esterase 3+ (NEGATIVE) H Urine RBC 5-10 /HPF (0 - 0) H Urine WBC Tntc /HPF (0 - 0) H Urine Squamous Epithelial Cells None /LPF (NONE/OCC) Urine Bacteria Many /HPF (NONE) H Neutrophils % (Manual) Pending Lymphocytes % (Manual) Pending Platelet Estimate Pending Platelet Morphology Pending Reticulocyte Count 3.3 % (0.5-2.0) H Hemoglobin A1c 5.1 % (4.3-6.0) Uric Acid 6.8 MG/DL (2.6-7.2) Direct Bilirubin 0.1 MG/DL (0.0-0.3) Gamma Glutamyl Transpeptidase 407 U/L (5-85) H Ammonia 35 umol/L (11-32) H C-Reactive Protein, Quantitative 8.1 mg/dL (0.00-0.90) H Pro-B-Type Natriuretic Peptide 824 pg/mL (0-125) H Triglycerides Level 128 MG/DL (30-150) Cholesterol Level 142 MG/DL (< 200) LDL Cholesterol 75 mg/dL (<100) HDL Cholesterol 41 MG/DL (40-60) Cholesterol/HDL Ratio 3.5 (3.3-4.4) Prostate Specific Antigen < 0.10 ng/mL (0.13-4.0) L Thyroid Stimulating Hormone (TSH) 0.462 uiU/mL (0.358-3.740) Urine Eosinophils None seen (NONE SEEN) Urine Random Sodium 125 mmol/L (20-110) H Test 06/30/19 11:20 Iron Level 17 ug/dL (50-175) L Total Iron Binding Capacity 175 ug/dL (250-450) L Percent Iron Saturation 10 % (15-50) L Unsaturated Iron Binding 158 ug/dL (112-346) Ferritin 155 NG/ML (8-388) Lactate Dehydrogenase 128 U/L (81-234) Microbiology Date/Time Source Procedure Growth Status 06/29/19 15:03 Urine,Clean Catch Urine Culture - Preliminary Gram Negative Bacillus 1 Resulted Height (Feet): 5 Height (Inches): 5.00 Weight (Pounds): 142 Medications Current Medications Medications (Trade) Dose Ordered Sig/Lauren Route PRN Reason Start Time Stop Time Status Last Admin Dose Admin Acetaminophen (Tylenol) 650 mg Q4H PRN ORAL Mild Pain (Pain Scale 1-3) 06/29/19 17:15 07/29/19 17:14 Acetaminophen/ Hydrocodone Bitart ([place] 10/325) 1 tab Q4H PRN ORAL Moderate Pain (Pain Scale 4-6) 06/30/19 13:15 07/07/19 13:14 Aspirin (ASA) 81 mg DAILY ORAL 06/30/19 11:00 07/30/19 10:59 06/30/19 12:27 Atorvastatin Calcium (Lipitor) 10 mg BEDTIME ORAL 06/30/19 21:00 07/30/19 20:59 Bisacodyl (Dulcolax) 10 mg DAILYPRN PRN RECTAL Constipation 06/29/19 17:30 07/29/19 17:14 Cefepime HCl 1 gm/ Dextrose 55 ml @ 110 mls/hr Q24H IVPB 06/30/19 16:00 07/07/19 15:59 Cyclosporine (Neoral) 50 mg BID ORAL 06/30/19 18:00 07/30/19 17:59 Dextrose (Dextrose 50%) 25 ml Q30M PRN IV Hypoglycemia 06/30/19 10:30 07/30/19 10:29 Dextrose (Dextrose 50%) 50 ml Q30M PRN IV Hypoglycemia 06/30/19 11:30 07/30/19 11:29 Dextrose/Sodium Chloride 1,000 ml @ 75 mls/hr [id number] IV 06/29/19 17:30 07/29/19 17:29 06/30/19 06:19 Diphenhydramine HCl (Benadryl) 25 mg Q6H PRN ORAL Itching/Pruritis 06/29/19 17:15 07/29/19 17:14 Docusate Sodium (Colace) 100 mg TID ORAL 06/30/19 09:00 07/29/19 20:59 06/30/19 12:27 Heparin Sodium (Porcine) (Heparin 5000 units/ml) 5,000 units EVERY 12 HOURS SUBQ 06/29/19 21:00 07/29/19 20:59 06/30/19 09:29 Insulin Aspart (NovoLOG) BEFORE MEALS AND HS SUBQ 06/30/19 11:30 07/30/19 11:29 Lorazepam (Ativan 2mg/ml 1ml) 0.5 mg Q4H PRN IV For Anxiety 06/29/19 17:15 07/06/19 17:14 Magnesium Hydroxide (Mom) 30 ml HSPRN PRN ORAL Constipation 06/29/19 17:15 07/29/19 17:14 Morphine Sulfate (Morphine Sulfate) 1 mg Q6H PRN IVP Severe Pain (Pain Scale 7-10) 06/30/19 13:15 07/06/19 17:14 Nitroglycerin (Ntg) 0.4 mg Q5M PRN SL Prn Chest Pain 06/29/19 17:15 07/29/19 17:14 Ondansetron HCl (Zofran) 4 mg Q6H PRN IVP Nausea & Vomiting 06/29/19 17:15 07/29/19 17:14 Pantoprazole (Protonix) 40 mg ACBREAKFAST IVP 06/30/19 06:30 07/30/19 06:29 06/30/19 06:08 Prednisone (predniSONE) 5 mg DAILY ORAL 06/30/19 13:15 07/30/19 13:14 Temazepam (Restoril) 15 mg HSPRN PRN ORAL Insomnia 06/29/19 17:15 07/06/19 17:14 Assessment/Plan Assessment/Plan: 74 yo M with PMH of recently dx esophageal CA (Pending EGD and surgery at [facility]), HTN, hypothyroidism, RUE DVT (on eliquis), ESRD s/p transplant on immunosuppressants, ACD, DM2, urinary retention s/p recent peterson placement admitted for sepsis 2/2 UTI. #Sepsis 2/2 UTI #Urinary retention s/p chronic peterson placement #Hx of recurrent UTI, recently on Zosyn -Cont Meropenem -f/u cultures -ID Consulted -Nephrology consulted -mIVF #Hx of ESRD s/p renal transplant #MALGORZATA -cont immunosuppressants -mIVF -s/p bolus -Nephrology consulted -CTM -Avoid nephrotoxic medications #Esophageal CA - dx 1.5 months ago -Plan for EGD and surgery at [facility] -GI Consulted -Oncology Consulted -COnt outpatient followup #RUE DVT -Cont eliquis #Anemia of chronic dx -pending anemia panel -FOBT pending -hematology/onc consulted #HTN -Cont home meds #DM -cont carb controlled diet -ISS -can add lantus if needed Code: digital imager of note may not reflect time of encounter Italia Orellana MD Jun 30, 2019 13:52
--- NOTE | 2019-06-30 14:44 | Infectious Diseases Prog Note ---
Assessment/Plan Assessment/Plan Full consults: A) 1) gram neg uti, sepsis, leukocytosis 2) pmh noted 3) allergies - azathioprine P) 1) cefepime 2) check urine cultur 3) monitor labs 4) thank you Subjective Allergies: Coded Allergies: AZATHIOPRINE (Verified Allergy, Unknown, 11/20/10) Objective Vital Signs Last 24 Hour Vital Signs Date Time Temp Pulse Resp B/P (MAP) Pulse Ox O2 Delivery O2 Flow Rate FiO2 06/30/19 12:00 98.1 68 18 136/71 (92) 97 06/30/19 12:00 74 06/30/19 12:00 Room Air 06/30/19 10:42 Room Air 06/30/19 08:00 78 06/30/19 08:00 Room Air 06/30/19 08:00 98.2 75 18 137/66 (89) 96 06/30/19 04:00 98.7 71 20 159/83 (108) 98 06/30/19 04:00 76 06/30/19 04:00 Room Air 06/30/19 00:00 Room Air 06/30/19 00:00 98.6 63 20 159/67 (97) 98 06/30/19 00:00 69 06/29/19 20:00 98.8 62 20 119/62 (81) 100 06/29/19 20:00 Room Air 06/29/19 18:00 Room Air 06/29/19 17:44 57 06/29/19 17:00 97.3 60 20 117/63 (81) 98 06/29/19 16:46 62 16 107/43 99 Room Air 06/29/19 16:00 97.0 60 17 108/50 98 Room Air 06/29/19 15:19 63 13 101/59 99 Room Air Height (Feet): 5 Height (Inches): 5.00 Weight (Pounds): 142 Microbiology Date/Time Source Procedure Growth Status 06/29/19 15:03 Urine,Clean Catch Urine Culture - Preliminary Gram Negative Bacillus 1 Resulted Laboratory Tests Test 06/29/19 15:03 06/30/19 03:40 06/30/19 06:45 06/30/19 11:20 Urine Color Yellow Urine Appearance Cloudy Urine pH 5 (4.5-8.0) Urine Specific [place] 1.010 (1.005-1.035) Urine Protein 3+ (NEGATIVE) H Urine Glucose (UA) Negative (NEGATIVE) Urine Ketones 1+ (NEGATIVE) H Urine Blood 1+ (NEGATIVE) H Urine Nitrite Negative (NEGATIVE) Urine Bilirubin Negative (NEGATIVE) Urine Urobilinogen Normal MG/DL (0.0-1.0) Urine Leukocyte Esterase 3+ (NEGATIVE) H Urine RBC 5-10 /HPF (0 - 0) H Urine WBC Tntc /HPF (0 - 0) H Urine Squamous Epithelial Cells None /LPF (NONE/OCC) Urine Bacteria Many /HPF (NONE) H White Blood Count 11.6 K/UL (4.8-10.8) H Red Blood Count 4.01 M/UL (4.70-6.10) L Hemoglobin 11.1 G/DL (14.2-18.0) L Hematocrit 34.6 % (42.0-52.0) L Mean Corpuscular Volume 86 FL (80-99) Mean Corpuscular Hemoglobin 27.8 PG (27.0-31.0) Mean Corpuscular Hemoglobin Concent 32.2 G/DL (32.0-36.0) Red Cell Distribution Width 18.0 % (11.6-14.8) H Platelet Count 230 K/UL (150-450) Mean Platelet Volume 6.6 FL (6.5-10.1) Neutrophils (%) (Auto) 64.9 % (45.0-75.0) Lymphocytes (%) (Auto) 21.5 % (20.0-45.0) Monocytes (%) (Auto) 8.3 % (1.0-10.0) Eosinophils (%) (Auto) 4.4 % (0.0-3.0) H Basophils (%) (Auto) 1.0 % (0.0-2.0) Differential Total Cells Counted 100 Neutrophils % (Manual) 67 % (45-75) Lymphocytes % (Manual) 21 % (20-45) Monocytes % (Manual) 7 % (1-10) Eosinophils % (Manual) 4 % (0-3) H Basophils % (Manual) 1 % (0-2) Band Neutrophils 0 % (0-8) Platelet Estimate Adequate Platelet Morphology Normal Hypochromasia 1+ Anisocytosis 2+ Reticulocyte Count 3.3 % (0.5-2.0) H Sodium Level 139 MMOL/L (136-145) Potassium Level 4.6 MMOL/L (3.5-5.1) Chloride Level 110 MMOL/L (98-107) H Carbon Dioxide Level 18 MMOL/L (21-32) L Anion Gap 11 mmol/L (5-15) Blood Urea Nitrogen 27 mg/dL (7-18) H Creatinine 1.4 MG/DL (0.55-1.30) H Estimat Glomerular Filtration Rate mL/min (>60) Glucose Level 81 MG/DL (74-106) Hemoglobin A1c 5.1 % (4.3-6.0) Uric Acid 6.8 MG/DL (2.6-7.2) Calcium Level 9.0 MG/DL (8.5-10.1) Phosphorus Level 3.3 MG/DL (2.5-4.9) Magnesium Level 2.1 MG/DL (1.8-2.4) Total Bilirubin 0.5 MG/DL (0.2-1.0) Direct Bilirubin 0.1 MG/DL (0.0-0.3) Gamma Glutamyl Transpeptidase 407 U/L (5-85) H Aspartate Amino Transf (AST/SGOT) 45 U/L (15-37) H Alanine Aminotransferase (ALT/SGPT) 107 U/L (12-78) H Alkaline Phosphatase 152 U/L (46-116) H Ammonia 35 umol/L (11-32) H Troponin I 0.011 ng/mL (0.000-0.056) C-Reactive Protein, Quantitative 8.1 mg/dL (0.00-0.90) H Pro-B-Type Natriuretic Peptide 824 pg/mL (0-125) H Total Protein 6.1 G/DL (6.4-8.2) L Albumin 2.5 G/DL (3.4-5.0) L Triglycerides Level 128 MG/DL (30-150) Cholesterol Level 142 MG/DL (< 200) LDL Cholesterol 75 mg/dL (<100) HDL Cholesterol 41 MG/DL (40-60) Cholesterol/HDL Ratio 3.5 (3.3-4.4) Prostate Specific Antigen < 0.10 ng/mL (0.13-4.0) L Thyroid Stimulating Hormone (TSH) 0.462 uiU/mL (0.358-3.740) Urine Eosinophils None seen (NONE SEEN) Urine Random Sodium 125 mmol/L (20-110) H Iron Level 17 ug/dL (50-175) L Total Iron Binding Capacity 175 ug/dL (250-450) L Percent Iron Saturation 10 % (15-50) L Unsaturated Iron Binding 158 ug/dL (112-346) Ferritin 155 NG/ML (8-388) Lactate Dehydrogenase 128 U/L (81-234) Current Medications Medications (Trade) Dose Ordered Sig/Lauren Route PRN Reason Start Time Stop Time Status Last Admin Dose Admin Acetaminophen (Tylenol) 650 mg Q4H PRN ORAL Mild Pain (Pain Scale 1-3) 06/29/19 17:15 07/29/19 17:14 Acetaminophen/ Hydrocodone Bitart ([place] 10/325) 1 tab Q4H PRN ORAL Moderate Pain (Pain Scale 4-6) 06/30/19 13:15 07/07/19 13:14 Aspirin (ASA) 81 mg DAILY ORAL 06/30/19 11:00 07/30/19 10:59 06/30/19 12:27 Atorvastatin Calcium (Lipitor) 10 mg BEDTIME ORAL 06/30/19 21:00 07/30/19 20:59 Bisacodyl (Dulcolax) 10 mg DAILYPRN PRN RECTAL Constipation 06/29/19 17:30 07/29/19 17:14 Cefepime HCl 1 gm/ Dextrose 55 ml @ 110 mls/hr Q24H IVPB 06/30/19 16:00 07/07/19 15:59 Cyclosporine (Neoral) 50 mg BID ORAL 06/30/19 18:00 07/30/19 17:59 Dextrose (Dextrose 50%) 25 ml Q30M PRN IV Hypoglycemia 06/30/19 10:30 07/30/19 10:29 Dextrose (Dextrose 50%) 50 ml Q30M PRN IV Hypoglycemia 06/30/19 11:30 07/30/19 11:29 Dextrose/Sodium Chloride 1,000 ml @ 75 mls/hr [id number] IV 06/29/19 17:30 07/29/19 17:29 06/30/19 06:19 Diphenhydramine HCl (Benadryl) 25 mg Q6H PRN ORAL Itching/Pruritis 06/29/19 17:15 07/29/19 17:14 Docusate Sodium (Colace) 100 mg TID ORAL 06/30/19 09:00 07/29/19 20:59 06/30/19 12:27 Heparin Sodium (Porcine) (Heparin 5000 units/ml) 5,000 units EVERY 12 HOURS SUBQ 06/29/19 21:00 07/29/19 20:59 06/30/19 09:29 Insulin Aspart (NovoLOG) BEFORE MEALS AND HS SUBQ 06/30/19 11:30 07/30/19 11:29 Lorazepam (Ativan 2mg/ml 1ml) 0.5 mg Q4H PRN IV For Anxiety 06/29/19 17:15 07/06/19 17:14 Magnesium Hydroxide (Mom) 30 ml HSPRN PRN ORAL Constipation 06/29/19 17:15 07/29/19 17:14 Morphine Sulfate (Morphine Sulfate) 1 mg Q6H PRN IVP Severe Pain (Pain Scale 7-10) 06/30/19 13:15 07/06/19 17:14 Nitroglycerin (Ntg) 0.4 mg Q5M PRN SL Prn Chest Pain 06/29/19 17:15 07/29/19 17:14 Ondansetron HCl (Zofran) 4 mg Q6H PRN IVP Nausea & Vomiting 06/29/19 17:15 07/29/19 17:14 Pantoprazole (Protonix) 40 mg ACBREAKFAST IVP 06/30/19 06:30 07/30/19 06:29 06/30/19 06:08 Prednisone (predniSONE) 5 mg DAILY ORAL 06/30/19 13:15 07/30/19 13:14 Temazepam (Restoril) 15 mg HSPRN PRN ORAL Insomnia 06/29/19 17:15 07/06/19 17:14 Carl Nelson MD Jun 30, 2019 14:44
--- NOTE | 2019-06-30 15:41 | NUR ---
NURSE NOTES: vital signs stable, Venous Duplex BUE done, negative, abdominal US done, family in the room, family refuse CT of the neck, dr. Galeano, L AWARE, CONTINUE MONITORING.
[2019-06-30] MEDS ORDERED: Cefepime HCl 1 GM in D5W 55 ML IVPB SCH (16:00)
[2019-06-30 16:02] VITALS: BP 157/77
--- NOTE | 2019-06-30 16:51 | Diagnostic Imaging Report ---
Indication: Abnormal liver function tests Technique: Magallon-scale and duplex images of the upper abdomen were obtained Comparison: No comparison sonograms. Reference made to abdomen pelvis CT dated 10/24/2015 Findings: Gallbladder is nondistended. Gallbladder wall appears borderline thickened, but this is probably an artifact of under distention. Small punctate mural calcification versus tiny wall adherent gallstone noted nondependently at the mucosal surface of the gallbladder wall. Sonographic Carrizales's sign is negative. Common bile duct measures 5 mm in diameter. No intrahepatic biliary ductal dilatation. Liver demonstrates normal echogenicity, no focal abnormality. Portal vein and hepatic veins are patent. Pancreas is unremarkable. Spleen is unremarkable. Neither [place] kidney is demonstrated. There is a transplant kidney in the right iliac fossa. This measures 13.3 cm in length. It demonstrates mild collecting system fullness, which is less striking than the hydronephrosis demonstrated on prior CT scan. Questionable echogenic focus in the renal sinus is noted. The bladder is empty, containing a Parker catheter. There is 38 mL of urine within the bladder despite Parker catheter. Non-aneurysmal abdominal aorta . Impression: Right iliac fossa transplant kidney, demonstrating mild fullness of the collecting system but not frankly hydronephrotic. Note that it was seen to be hydronephrotic no prior 2015 CT scan Absent [place] kidneys, also previously reported Borderline gallbladder wall thickening, probably an artifact of under distention. Small punctate mural calcification versus tiny wall adherent gallstone. Negative for dilated bile ducts 30 mL urinary bladder volume, despite the presence of Parker catheter, significance uncertain
[2019-06-30] MEDS: Eliquis 2.5mg tablet ORAL SCH (17:32)
--- NOTE | 2019-06-30 17:45 | Consultation ---
DATE OF CONSULTATION: 06/30/2019 CARDIOLOGY CONSULTATION CONSULTING PHYSICIAN: Omkar Vera M.D. REFERRING PHYSICIAN: Dr. Italia Kirk. REASON FOR CONSULTATION: Management of hypotension and coronary artery disease. HISTORY OF PRESENT ILLNESS: The patient is a 74-year-old gentleman with history of hypertension, diabetes, coronary artery disease, history of stent placement and most recent one in November of 2018 at [facility]. The patient also has history of end-stage renal disease, status post kidney transplant in 1980s, also has history of CVA with left-sided weakness. The patient also has history of urinary tract infection and the patient took course of week of Zosyn. The patient came to the emergency room for altered mental status and hypotension. The patient was admitted and a Cardiology consultation was obtained for further evaluation and management. Per my evaluation, the patient is more alert and denies any chest pain, palpitation, or shortness of breath. By the paramedics, initial blood pressure was in the 70s, improved to 80s after 300 mL of IV fluids. REVIEW OF SYSTEMS: Review of systems was negative other than what was mentioned in history of present illness. PAST MEDICAL HISTORY: As mentioned above. FAMILY HISTORY: Noncontributory. SOCIAL HISTORY: He lives at home with a caregiver. Does not smoke or drink alcohol. PHYSICAL EXAMINATION: VITAL SIGNS: Blood pressure of 137/66, pulse 75, respirations 18, and temperature 98.2. HEAD AND NECK: Showed no JVD. LUNGS: Clear. CARDIOVASCULAR: Regular S1 and S2 with no gallop or murmur. ABDOMEN: Soft. EXTREMITIES: No pitting edema. LABORATORY AND DIAGNOSTIC DATA: His labs show white count initially was 17.2, down to 11.3; hemoglobin 11; hematocrit 34; and platelet count is 230,000. Sodium is 139, potassium 4.2, BUN 27, creatinine 1.4, glucose of 81. His ammonia level is 35. His troponin is negative. EKG shows sinus rhythm with lateral T-wave changes. ASSESSMENT AND PLAN: 1. Coronary artery disease with history of prior three stents placed, most recent one in November of 2018. The patient denies any chest pain or shortness of breath. I will put him on aspirin and Lipitor. Hold off on beta-toña. I will start low-dose Lipitor as AST and ALT mildly elevated. 2. Hypotension, likely due to sepsis. White count was 17,000, currently off the blood pressure medication and received intravenous fluid. 3. Diabetes. 4. End-stage renal disease, status post renal transplant. His creatinine currently is 1.8. 5. Elevated liver function tests. 6. Urinary tract infection, on cefepime. Thank you very much, Dr. Kirk, for allowing me to participate in the care of this patient. Please do not hesitate to contact me for any questions regarding my evaluation Omkar Vera M.D. DR: Adeola JOB#: [id number] CC:
[2019-06-30] MEDS ORDERED: cycloSPORINE 25mg cap ORAL SCH (18:00)
--- NOTE | 2019-06-30 18:15 | Consultation ---
DATE OF CONSULTATION: 06/30/2019 INFECTIOUS DISEASES CONSULTATION CONSULTING PHYSICIAN: Carl Nelson M.D. ATTENDING PHYSICIAN: Dr. Italia Kirk. REFERRING PHYSICIAN: Dr. Italia Kirk. REASON FOR CONSULTATION: Gram-negative UTI, sepsis, elevated white count. CHIEF COMPLAINT: The patient's chief complaint coming in to the hospital is urinary retention, sepsis, gram-negative UTI, leukocytosis. HISTORY OF PRESENT ILLNESS: This is a 74-year-old male, I had discussion with the patient's family member who lives at home. The patient is mostly I believe is non-Puerto Rican speaking. The patient presents to [facility], was noted to have urinary retention, possible sepsis, elevated white count, gram-negative UTI and complicated UTI. Infectious Diseases consultation requested for antibiotic management. The patient is currently on cefepime. The patient also in acute renal failure. The patient also being followed by Urology. The patient has been on cefepime for gram-negative UTI and possible sepsis. MAR was noted. Orders noted. Notes reviewed REVIEW OF SYSTEMS: The patient does have a Parker. He has no central line. He has generalized fatigue. He has no new focal weakness. He has no current fevers or chills. No weight loss or night sweats. HEAD AND NECK: He has no head pain or neck pain. No neck stiffness. CARDIAC: No chest pain or palpitations. GASTROINTESTINAL: No nausea, vomiting, abdominal pain, or diarrhea. GENITOURINARY: He does have a Parker. No ava CVA tenderness. PULMONARY: No congestion, shortness of breath, hemoptysis, or secretions. SKIN: No rash or itching. EXTREMITIES: No extremity pain. NEUROLOGIC: No seizures. He has generalized fatigue. No focal weakness. PAST MEDICAL HISTORY: The patient's past medical history includes the following. The patient has a past medical history in discussion with family member of recurrent UTI. The patient has past medical history of cardiac disease, history of hypertension, diabetes, BPH, urinary retention, history of CVA, history of TIA, neurological disease, history of dementia, history of left arm residual weakness and CVA, acute renal failure, anemic. It looks like he has history of hyperlipidemia or dyslipidemia. ALLERGIES: Azathioprine. No other antibiotic allergies noted. SOCIAL HISTORY: Negative for smoking, alcohol, or drug abuse. FAMILY HISTORY: Noncontributory. Negative for tuberculosis or cancer. MEDICATIONS: Upon reviewing the MAR, the patient is on following medications. He is on Lipitor, cyclosporine, cefepime, prednisone, hydrocodone, morphine, insulin, aspirin, dextrose, IV fluids, pantoprazole, heparin, bisacodyl, nitroglycerin, abx, acetaminophen, magnesium hydroxide, Zofran, lorazepam, temazepam, diphenhydramine. Outside medications noted and reconciliated. PHYSICAL EXAMINATION: VITAL SIGNS: Temperature 98.1, pulse rate 68, respiratory rate 18, blood pressure 136/71, saturation 97% on room air. GENERAL: Alert and responsive, no acute distress. HEAD AND NECK: Oral exam, no thrush. Eye exam, no icterus. Neck is supple. No JVD. Normocephalic. HEART: Regular. No obvious gallop or murmur. No friction rub. ABDOMEN: Soft. Positive bowel sounds. Nontender. LUNGS: Fairly clear bilaterally. No rhonchi or rales. SKIN: No rash. MUSCULOSKELETAL: No effusions. Legs are without cellulitis. PERIPHERAL VASCULAR: No cyanosis. GENITOURINARY: He has a Parker. Urine is cloudy. LINE SITES: Without phlebitis. NEUROLOGIC: Generalized weakness and responsive. Alert and responsive. LABORATORY AND DIAGNOSTIC DATA: White count 11.6, hemoglobin 11.1. White count has been as high as 17.2. Creatinine is 1.4 as high as 1.8. Urinalysis had 3+ leukocyte esterase, too many to count white blood cells. Urine culture greater than 100,000 gram-negative bacilli. Blood cultures are pending. Chest x-ray showed no acute disease noted and reviewed. ASSESSMENT: 1. The patient has complicated gram-negative UTI with sepsis, elevated white count. The patient also has acute renal failure and he is anemic. The patient has significant leukocytosis and did have SIRS criteria, initial respiratory rate 21 and elevated white count. At this time, we will continue cefepime for gram-negative coverage. Continue cefepime for complicated gram-negative UTI, sepsis, elevated white count. Check final urine culture results. Monitor white cell count and monitor sepsis status. 2. The patient has acute renal failure. 3. Anemia. 4. Diabetes. 5. Hypertension. 6. Hyperlipidemia. 7. Blood sugar and blood pressure treatment per primary. 8. CVA. 9. Weakness. 10. TIA. 11. BPH. 12. Urinary retention. 13. Parker. 14. Urology followup. 15. Dementia. 16. Allergies to azathioprine. 17. Social history is negative. 18. Family history is noncontributory. 19. MAR was noted. 20. Case was discussed with RN. 21. Continue treatment per primary consultants. Carl Nelson M.D. DR: Zo JOB#: [id number] CC: ROBERTA
[2019-06-30] MEDS ORDERED: PREDNISONE5 M3 PO (19:03)
[2019-06-30] MEDS ORDERED: ISOSORBIDE MONO60 M1 PO (19:03)
[2019-06-30] MEDS ORDERED: MULTIVITAMINS1 EA14 PO (19:03)
[2019-06-30] MEDS ORDERED: CYCLOSPORINE25 MG PO (19:03)
[2019-06-30] MEDS ORDERED: PROCARDIA XL90 M4 ORAL (19:03)
[2019-06-30] MEDS ORDERED: LEVOXYL112 MCG ORAL (19:03)
--- NOTE | 2019-06-30 19:34 | NUR ---
HAND-OFF: Report given to SINCERE REYES.
--- NOTE | 2019-06-30 19:35 | NUR ---
NURSE NOTES: Received patient report from Amara REYES. Patient is in the bed, awake, alert, oriented, with family members at bedside. Vital signs stable, no SOB, no complaint of pain at this time. Patient has a peterson catheter with yellow clear urine draining. Bed is in lowest position with call light within reach. Will continue to monitor and follow plan of care.
[2019-06-30 20:00] VITALS: BP 172/75
[2019-06-30] MEDS ORDERED: HydrALAZINE 50mg tab ORAL SCH (20:15)
[2019-06-30] MEDS ORDERED: Methocarbamol 500mg tab ORAL PRN (20:15)
[2019-06-30] MEDS: HYDROcodone/Acetamin 10/325 tab ORAL PRN (20:27)
[2019-06-30] MEDS ORDERED: Tamsulosin 0.4mg cap ORAL SCH (21:00)
[2019-06-30] MEDS: Metoprolol Tartrate 50mg tab ORAL SCH (21:16)
[2019-06-30] MEDS ORDERED: OLANZapine 2.5mg tab ORAL PRN (23:00)
[2019-06-30] MEDS ORDERED: LORazepam 0.5mg tab ORAL PRN (23:00)
--- NOTE | 2019-06-30 23:30 | NUR ---
NURSE NOTES: Received report from AMY Orozco. Pt is asleep in bed. In no acute distress. Bed in lowest position, call light within reach. Will continue plan of care.
[2019-07-01] VITALS: BP 178/76
[2019-07-01] MEDS: HYDROcodone/Acetamin 10/325 tab ORAL PRN ×2 (00:49→09:45)
[2019-07-01 01:35] VITALS: BP 155/60
[2019-07-01 04:00] VITALS: BP 158/72
[2019-07-01 04:52] LABS: BASOPHILS % (AUTO) 1.4 % (0.0-2.0); EOSINOPHILS % (AUTO) 4.6 % (0.0-3.0); HEMATOCRIT 35.8 % (42.0-52.0); HEMOGLOBIN 11.8 G/DL (14.2-18.0); LYMPHOCYTES % (AUTO) 23.1 % (20.0-45.0); MEAN CORPUSCULAR VOLUME 85 FL (80-99); MONOCYTES % (AUTO) 9.4 % (1.0-10.0); NEUTROPHILS % (AUTO) 61.5 % (45.0-75.0); PLATELET COUNT 242 K/UL (150-450); RED CELL DISTRIBUTION WIDTH 17.9 % (11.6-14.8); WHITE BLOOD COUNT 9.4 K/UL (4.8-10.8)
[2019-07-01 05:30] LABS: ALANINE AMINOTRANSFERASE 109 U/L (12-78); ALBUMIN 2.7 G/DL (3.4-5.0); ALBUMIN/GLOBULIN RATIO 0.8 (1.0-2.7); ALKALINE PHOSPHATASE 186 U/L (46-116); ANION GAP 11 mmol/L (5-15); ASPARTATE AMINO TRANSFERASE 55 U/L (15-37); BILIRUBIN,TOTAL 0.3 MG/DL (0.2-1.0); BLOOD UREA NITROGEN 16 mg/dL (7-18); CALCIUM 8.9 MG/DL (8.5-10.1); CARBON DIOXIDE 21 MMOL/L (21-32); CHLORIDE 107 MMOL/L (98-107); CREATININE 1.1 MG/DL (0.55-1.30); POTASSIUM 4.9 MMOL/L (3.5-5.1); SODIUM 139 MMOL/L (136-145)
[2019-07-01] MEDS ORDERED: HydrALAZINE 50mg tab ORAL SCH (06:00)
[2019-07-01] MEDS: Pantoprazole Inj IVP SCH (06:15)
[2019-07-01] MEDS: NovoLOG Insulin Flexpen SUBQ SCH ×2 (06:18→11:52)
--- NOTE | 2019-07-01 07:20 | NUR ---
HAND-OFF: Report given to AMY Walter.
--- NOTE | 2019-07-01 07:24 | NUR ---
NURSE NOTES: Received report from AMY Yung. Patient is resting in bed in stable condition. No s/sx of SOB, breathing is even and unlabored. Bed is in lowest position, brakes engaged. Call light is kept within easy reach. at bedside. Will continue to monitor patient.
[2019-07-01 07:52] VITALS: BP 157/68
--- NOTE | 2019-07-01 08:39 | Urology Progress Note ---
Assessment/Plan Assessment/Plan: 1. Urinary retention. 2. BPH history. 3. Probable neurogenic bladder. 4. Pyuria, possible UTI and colonization with chronic Peterson. 5. Hematuria. 6. Proteinuria. 7. History of end-stage renal disease, status post transplant and chronic kidney disease. 8. Inguinal hernia. 9. History of hydronephrosis, improved. keep peterson hand irrigated and do PRN abx as ordered f/u on blood cx monitor renal fxn cysto later d/w pt's family fully d/w Dr. Orellana Subjective Allergies: Coded Allergies: AZATHIOPRINE (Verified Allergy, Unknown, 11/20/10) Subjective all noted, no new changes Objective Last 24 Hour Vital Signs Date Time Temp Pulse Resp B/P (MAP) Pulse Ox O2 Delivery O2 Flow Rate FiO2 07/01/19 07:52 99.3 64 20 157/68 (97) 97 07/01/19 06:16 162/78 07/01/19 04:00 Room Air 07/01/19 04:00 52 07/01/19 04:00 98.1 52 20 158/72 (100) 98 07/01/19 01:35 70 155/60 (91) 07/01/19 00:48 171/73 07/01/19 00:00 98.1 55 18 178/76 (110) 98 07/01/19 00:00 55 07/01/19 00:00 Room Air 06/30/19 21:16 172/75 06/30/19 21:16 77 172/75 06/30/19 20:00 99.2 73 18 172/75 (107) 99 06/30/19 20:00 77 06/30/19 20:00 Room Air 06/30/19 16:02 98.1 68 16 157/77 (103) 98 06/30/19 16:00 Room Air 06/30/19 16:00 78 06/30/19 12:00 98.1 68 18 136/71 (92) 97 06/30/19 12:00 74 06/30/19 12:00 Room Air 06/30/19 10:42 Room Air Intake and Output 06/30/19 07/01/19 19:00 07:00 Intake Total 1143 ml 870 ml Output Total 3300 ml 3300 ml Balance -2157 ml -2430 ml Intake Oral 300 ml 120 ml IV Total 843 ml 750 ml Output Urine Total 3300 ml 3300 ml # Bowel Movements 1 Microbiology Date/Time Source Procedure Growth Status 06/29/19 14:55 Blood Blood Culture - Preliminary NO GROWTH AFTER 24 HOURS Resulted 06/29/19 15:03 Urine,Clean Catch Urine Culture - Final Pseudomonas Aeruginosa Complete 06/29/19 17:00 Rectum VRE Culture - Final NO VANCOMYCIN RESISTANT ENTEROCOCCUS ... Complete 06/29/19 17:00 Rectum - Final NO CARBAPENEM-RESISTANT ENTEROBACTERI... Complete Current Medications Medications (Trade) Dose Ordered Sig/Lauren Route PRN Reason Start Time Stop Time Status Last Admin Dose Admin Acetaminophen (Tylenol) 650 mg Q4H PRN ORAL Mild Pain (Pain Scale 1-3) 06/29/19 17:15 07/29/19 17:14 Acetaminophen/ Hydrocodone Bitart ([place] 10/325) 1 tab Q4H PRN ORAL Moderate Pain (Pain Scale 4-6) 06/30/19 13:15 07/07/19 13:14 07/01/19 00:49 Apixaban (Eliquis) 2.5 mg BID ORAL 06/30/19 18:00 07/30/19 17:59 06/30/19 17:32 Aspirin (ASA) 81 mg DAILY ORAL 06/30/19 11:00 07/30/19 10:59 06/30/19 12:27 Atorvastatin Calcium (Lipitor) 10 mg BEDTIME ORAL 06/30/19 21:00 07/30/19 20:59 06/30/19 21:16 Bisacodyl (Dulcolax) 10 mg DAILYPRN PRN RECTAL Constipation 06/29/19 17:30 07/29/19 17:14 Bumetanide (Bumex) 0.5 mg DAILY ORAL 07/01/19 09:00 07/31/19 08:59 Cefepime HCl 1 gm/ Dextrose 55 ml @ 110 mls/hr Q24H IVPB 06/30/19 16:00 07/07/19 15:59 06/30/19 16:01 Cyclosporine (Neoral) 50 mg BID ORAL 07/01/19 18:00 07/31/19 17:59 Dextrose (Dextrose 50%) 25 ml Q30M PRN IV Hypoglycemia 06/30/19 10:30 07/30/19 10:29 Dextrose (Dextrose 50%) 50 ml Q30M PRN IV Hypoglycemia 06/30/19 11:30 07/30/19 11:29 Dextrose/Sodium Chloride 1,000 ml @ 75 mls/hr [id number] IV 06/29/19 17:30 07/29/19 17:29 06/30/19 20:27 Diphenhydramine HCl (Benadryl) 25 mg Q6H PRN ORAL Itching/Pruritis 06/29/19 17:15 07/29/19 17:14 Docusate Sodium (Colace) 100 mg TID ORAL 06/30/19 09:00 07/29/19 20:59 06/30/19 17:32 Docusate Sodium (Colace) 100 mg TWICE A DAY ORAL 07/01/19 09:00 07/31/19 08:59 Hydralazine HCl (Apresoline) 10 mg Q4H PRN IV SBP > 160mmHg 06/30/19 20:15 07/30/19 20:14 07/01/19 00:48 Hydralazine HCl (Apresoline) 100 mg Q8HR ORAL 07/01/19 06:00 07/31/19 05:59 07/01/19 06:16 Insulin Aspart (NovoLOG) BEFORE MEALS AND HS SUBQ 06/30/19 11:30 07/30/19 11:29 06/30/19 21:17 Isosorbide Mononitrate (Imdur) 60 mg DAILY ORAL 07/01/19 09:00 07/31/19 08:59 Levothyroxine Sodium (Synthroid) 112 mcg ACBREAKFAST ORAL 07/01/19 06:30 07/31/19 06:29 07/01/19 06:15 Lorazepam (Ativan 2mg/ml 1ml) 0.5 mg Q4H PRN IV For Anxiety 06/29/19 17:15 07/06/19 17:14 Lorazepam (Ativan) 1 mg Q6H PRN ORAL For Anxiety 06/30/19 23:00 07/07/19 22:59 Magnesium Hydroxide (Mom) 30 ml HSPRN PRN ORAL Constipation 06/29/19 17:15 07/29/19 17:14 Methocarbamol (Robaxin) 250 mg Q8H PRN ORAL Muscle pain/spasm 06/30/19 20:15 07/30/19 20:14 Metoprolol Tartrate (Lopressor) 50 mg EVERY 12 HOURS ORAL 06/30/19 21:00 07/30/19 20:59 06/30/19 21:16 Morphine Sulfate (Morphine Sulfate) 1 mg Q6H PRN IVP Severe Pain (Pain Scale 7-10) 06/30/19 13:15 07/06/19 17:14 Nifedipine (Procardia XL) 90 mg DAILY ORAL 07/01/19 09:00 07/31/19 08:59 Nitroglycerin (Ntg) 0.4 mg Q5M PRN SL Prn Chest Pain 06/29/19 17:15 07/29/19 17:14 Olanzapine (ZyPREXA) 2.5 mg BEDTIME PRN ORAL agitation 06/30/19 23:00 07/30/19 22:59 Ondansetron HCl (Zofran) 4 mg Q6H PRN IVP Nausea & Vomiting 06/29/19 17:15 07/29/19 17:14 Pantoprazole (Protonix) 40 mg ACBREAKFAST IVP 06/30/19 06:30 07/30/19 06:29 07/01/19 06:15 Patient Own Medication (Patient's Own Med) 2 ea BID ORAL 07/01/19 09:00 07/01/19 11:00 Prednisone (predniSONE) 5 mg DAILY ORAL 06/30/19 13:15 07/30/19 13:14 06/30/19 16:00 Sucralfate (Carafate) 1 gm DAILY ORAL 07/01/19 09:00 07/31/19 08:59 Tamsulosin HCl (Flomax) 0.8 mg BEDTIME ORAL 06/30/19 21:00 07/30/19 20:59 06/30/19 21:15 Temazepam (Restoril) 15 mg HSPRN PRN ORAL Insomnia 06/29/19 17:15 07/06/19 17:14 Laboratory Tests 06/30/19 11:20: Iron Level 17L, Total Iron Binding Capacity 175L, Percent Iron Saturation 10L, Unsaturated Iron Binding 158, Ferritin 155, Lactate Dehydrogenase 128 06/30/19 19:05: Troponin I 0.000 07/01/19 03:00: Troponin I 0.000, White Blood Count 9.4, Red Blood Count 4.20L, Hemoglobin 11.8L , Hematocrit 35.8L, Mean Corpuscular Volume 85, Mean Corpuscular Hemoglobin 28.0 , Mean Corpuscular Hemoglobin Concent 32.8, Red Cell Distribution Width 17.9H, Platelet Count 242, Mean Platelet Volume 6.4L, Neutrophils (%) (Auto) 61.5, Lymphocytes (%) (Auto) 23.1, Monocytes (%) (Auto) 9.4, Eosinophils (%) (Auto) 4.6H, Basophils (%) (Auto) 1.4, Sodium Level 139, Potassium Level 4.9, Chloride Level 107, Carbon Dioxide Level 21, Anion Gap 11, Blood Urea Nitrogen 16, Creatinine 1.1, Estimat Glomerular Filtration Rate , Glucose Level 136H, Calcium Level 8.9, Total Bilirubin 0.3, Aspartate Amino Transf (AST/SGOT) 55H, Alanine Aminotransferase (ALT/SGPT) 109H, Alkaline Phosphatase 186H, Total Protein 6.2L, Albumin 2.7L, Globulin 3.5, Albumin/Globulin Ratio 0.8L, Hepatitis A IgM Antibody [Pending], Hepatitis B Surface Antigen [Pending], Hepatitis B Core IgM Antibody [Pending], Hepatitis C Antibody [Pending] 07/01/19 05:15: Urine Eosinophils None seen Height (Feet): 5 Height (Inches): 5.00 Weight (Pounds): 142 Objective exam stable abdominal u/s (06/30) noted Jeremy Tang MD Jul 01, 2019 08:39
--- NOTE | 2019-07-01 08:56 | Hematology/Onc Progress Note ---
Assessment/Plan Assessment/Plan Assessment and Recs: # Esophageal cancer --> is biopsy proven approx 1.5 months ago, was [place] [facility] [place] once patient stabilized, consider gi procedure per Dr. Lopez --> endoscopy can also be done [place] [facility] [place] gi --> staging with EUS and CT scan (ordered here) cr now is normal --> ENT and Gi to eval outpatient as well # DVT Right arm has been on anticoag --> started on eliquis dosing --> continue after any potential procedure # Anemia of chronic disease, r/o gi bleed --> anemia panel shows acd --> occult pending, gi to eval # DM2 - a1c goal <7 --> accuchecks qac and qsh # HTN - sbp goal <140 --> as per cards recs # Sepsis has been started on abx --> on cefepime # ESRD s/p transplant Greatly appreciate consultation. Subjective Constitutional: Denies: no symptoms, chills, fever, malaise, weakness, other HEENT: Denies: no symptoms, eye pain, blurred vision, tearing, double vision, ear pain, ear discharge, nose pain, nose congestion, throat pain, throat swelling, mouth pain, mouth swelling, other Cardiovascular: Denies: no symptoms, chest pain, edema, irregular heart rate, lightheadedness, palpitations, syncope, other Respiratory: Denies: no symptoms, cough, shortness of breath, SOB with excertion, SOB at rest, sputum, wheezing, other Gastrointestinal/Abdominal: Denies: no symptoms, abdomen distended, abdominal pain, black stools, tarry stools, blood in stool, constipated, diarrhea, difficulty swallowing, nausea, poor appetite, poor fluid intake, rectal bleeding , vomiting, other Genitourinary: Denies: no symptoms, burning, discharge, frequency, flank pain, hematuria, incontinence, pain, urgency, other Neurologic/Psychiatric: Denies: no symptoms, anxiety, depressed, emotional problems, headache, numbness, paresthesia, pre-existing deficit, seizure, tingling, tremors, weakness, other Endocrine: Denies: no symptoms, excessive sweating, flushing, intolerance to cold, intolerance to heat, increased hunger, increased thirst, increased urine, unexplained weight gain, unexplained weight loss, other Allergies: Coded Allergies: AZATHIOPRINE (Verified Allergy, Unknown, 11/20/10) Subjective 07/01: is awake, alert, peterson in place, labs reviewed, throat sore Objective Objective Current Medications Medications (Trade) Dose Ordered Sig/Lauren Route PRN Reason Start Time Stop Time Status Last Admin Dose Admin Acetaminophen (Tylenol) 650 mg Q4H PRN ORAL Mild Pain (Pain Scale 1-3) 06/29/19 17:15 07/29/19 17:14 Acetaminophen/ Hydrocodone Bitart ([place] 10/325) 1 tab Q4H PRN ORAL Moderate Pain (Pain Scale 4-6) 06/30/19 13:15 07/07/19 13:14 07/01/19 00:49 Apixaban (Eliquis) 2.5 mg BID ORAL 06/30/19 18:00 07/30/19 17:59 06/30/19 17:32 Aspirin (ASA) 81 mg DAILY ORAL 06/30/19 11:00 07/30/19 10:59 06/30/19 12:27 Atorvastatin Calcium (Lipitor) 10 mg BEDTIME ORAL 06/30/19 21:00 07/30/19 20:59 06/30/19 21:16 Bisacodyl (Dulcolax) 10 mg DAILYPRN PRN RECTAL Constipation 06/29/19 17:30 07/29/19 17:14 Bumetanide (Bumex) 0.5 mg DAILY ORAL 07/01/19 09:00 07/31/19 08:59 Cefepime HCl 1 gm/ Dextrose 55 ml @ 110 mls/hr Q24H IVPB 06/30/19 16:00 07/07/19 15:59 06/30/19 16:01 Cyclosporine (Neoral) 50 mg BID ORAL 07/01/19 18:00 07/31/19 17:59 Dextrose (Dextrose 50%) 25 ml Q30M PRN IV Hypoglycemia 06/30/19 10:30 07/30/19 10:29 Dextrose (Dextrose 50%) 50 ml Q30M PRN IV Hypoglycemia 06/30/19 11:30 07/30/19 11:29 Dextrose/Sodium Chloride 1,000 ml @ 75 mls/hr [id number] IV 06/29/19 17:30 07/29/19 17:29 06/30/19 20:27 Diphenhydramine HCl (Benadryl) 25 mg Q6H PRN ORAL Itching/Pruritis 06/29/19 17:15 07/29/19 17:14 Docusate Sodium (Colace) 100 mg TWICE A DAY ORAL 07/01/19 09:00 07/31/19 08:59 Hydralazine HCl (Apresoline) 10 mg Q4H PRN IV SBP > 160mmHg 06/30/19 20:15 07/30/19 20:14 07/01/19 00:48 Hydralazine HCl (Apresoline) 100 mg Q8HR ORAL 07/01/19 06:00 07/31/19 05:59 07/01/19 06:16 Insulin Aspart (NovoLOG) BEFORE MEALS AND HS SUBQ 06/30/19 11:30 07/30/19 11:29 06/30/19 21:17 Isosorbide Mononitrate (Imdur) 60 mg DAILY ORAL 07/01/19 09:00 07/31/19 08:59 Levothyroxine Sodium (Synthroid) 112 mcg ACBREAKFAST ORAL 07/01/19 06:30 07/31/19 06:29 07/01/19 06:15 Lorazepam (Ativan 2mg/ml 1ml) 0.5 mg Q4H PRN IV For Anxiety 06/29/19 17:15 07/06/19 17:14 Lorazepam (Ativan) 1 mg Q6H PRN ORAL For Anxiety 06/30/19 23:00 07/07/19 22:59 Magnesium Hydroxide (Mom) 30 ml HSPRN PRN ORAL Constipation 06/29/19 17:15 07/29/19 17:14 Methocarbamol (Robaxin) 250 mg Q8H PRN ORAL Muscle pain/spasm 06/30/19 20:15 07/30/19 20:14 Metoprolol Tartrate (Lopressor) 50 mg EVERY 12 HOURS ORAL 06/30/19 21:00 07/30/19 20:59 06/30/19 21:16 Morphine Sulfate (Morphine Sulfate) 1 mg Q6H PRN IVP Severe Pain (Pain Scale 7-10) 06/30/19 13:15 07/06/19 17:14 Nifedipine (Procardia XL) 90 mg DAILY ORAL 07/01/19 09:00 07/31/19 08:59 Nitroglycerin (Ntg) 0.4 mg Q5M PRN SL Prn Chest Pain 06/29/19 17:15 07/29/19 17:14 Olanzapine (ZyPREXA) 2.5 mg BEDTIME PRN ORAL agitation 06/30/19 23:00 07/30/19 22:59 Ondansetron HCl (Zofran) 4 mg Q6H PRN IVP Nausea & Vomiting 06/29/19 17:15 07/29/19 17:14 Pantoprazole (Protonix) 40 mg ACBREAKFAST IVP 06/30/19 06:30 07/30/19 06:29 07/01/19 06:15 Patient Own Medication (Patient's Own Med) 2 ea BID ORAL 07/01/19 09:00 07/01/19 11:00 Prednisone (predniSONE) 5 mg DAILY ORAL 06/30/19 13:15 07/30/19 13:14 06/30/19 16:00 Sucralfate (Carafate) 1 gm DAILY ORAL 07/01/19 09:00 07/31/19 08:59 Tamsulosin HCl (Flomax) 0.8 mg BEDTIME ORAL 06/30/19 21:00 07/30/19 20:59 06/30/19 21:15 Temazepam (Restoril) 15 mg HSPRN PRN ORAL Insomnia 06/29/19 17:15 07/06/19 17:14 Last 24 Hour Vital Signs Date Time Temp Pulse Resp B/P (MAP) Pulse Ox O2 Delivery O2 Flow Rate FiO2 07/01/19 07:52 99.3 64 20 157/68 (97) 97 07/01/19 06:16 162/78 07/01/19 04:00 Room Air 07/01/19 04:00 52 07/01/19 04:00 98.1 52 20 158/72 (100) 98 07/01/19 01:35 70 155/60 (91) 07/01/19 00:48 171/73 07/01/19 00:00 98.1 55 18 178/76 (110) 98 07/01/19 00:00 55 07/01/19 00:00 Room Air 06/30/19 21:16 172/75 06/30/19 21:16 77 172/75 06/30/19 20:00 99.2 73 18 172/75 (107) 99 06/30/19 20:00 77 06/30/19 20:00 Room Air 06/30/19 16:02 98.1 68 16 157/77 (103) 98 06/30/19 16:00 Room Air 06/30/19 16:00 78 06/30/19 12:00 98.1 68 18 136/71 (92) 97 06/30/19 12:00 74 06/30/19 12:00 Room Air 06/30/19 10:42 Room Air 06/30/19 08:00 78 06/30/19 08:00 Room Air 06/30/19 08:00 98.2 75 18 137/66 (89) 96 06/30/19 04:00 98.7 71 20 159/83 (108) 98 06/30/19 04:00 76 06/30/19 04:00 Room Air 06/30/19 00:00 Room Air 06/30/19 00:00 98.6 63 20 159/67 (97) 98 06/30/19 00:00 69 06/29/19 20:00 98.8 62 20 119/62 (81) 100 06/29/19 20:00 Room Air 06/29/19 18:00 Room Air 06/29/19 17:44 57 06/29/19 17:00 97.3 60 20 117/63 (81) 98 06/29/19 16:46 62 16 107/43 99 Room Air 06/29/19 16:00 97.0 60 17 108/50 98 Room Air 06/29/19 15:19 63 13 101/59 99 Room Air 06/29/19 14:27 97.9 65 19 78/36 Room Air 06/29/19 14:05 64 18 Room Air 06/29/19 13:55 98.2 71 21 82/31 (48) 100 Room Air Intake and Output 06/30/19 07/01/19 19:00 07:00 Intake Total 1143 ml 870 ml Output Total 3300 ml 3300 ml Balance -2157 ml -2430 ml Intake Oral 300 ml 120 ml IV Total 843 ml 750 ml Output Urine Total 3300 ml 3300 ml # Bowel Movements 1 Labs Test 06/29/19 14:08 06/29/19 15:03 06/30/19 03:40 06/30/19 06:45 White Blood Count 17.2 K/UL (4.8-10.8) 11.6 K/UL (4.8-10.8) Red Blood Count 4.26 M/UL (4.70-6.10) 4.01 M/UL (4.70-6.10) Hemoglobin 11.7 G/DL (14.2-18.0) 11.1 G/DL (14.2-18.0) Hematocrit 37.0 % (42.0-52.0) 34.6 % (42.0-52.0) Mean Corpuscular Volume 87 FL (80-99) 86 FL (80-99) Mean Corpuscular Hemoglobin 27.4 PG (27.0-31.0) 27.8 PG (27.0-31.0) Mean Corpuscular Hemoglobin Concent 31.6 G/DL (32.0-36.0) 32.2 G/DL (32.0-36.0) Red Cell Distribution Width 18.2 % (11.6-14.8) 18.0 % (11.6-14.8) Platelet Count 217 K/UL (150-450) 230 K/UL (150-450) Mean Platelet Volume 6.3 FL (6.5-10.1) 6.6 FL (6.5-10.1) Neutrophils (%) (Auto) 79.8 % (45.0-75.0) 64.9 % (45.0-75.0) Lymphocytes (%) (Auto) 11.8 % (20.0-45.0) 21.5 % (20.0-45.0) Monocytes (%) (Auto) 6.2 % (1.0-10.0) 8.3 % (1.0-10.0) Eosinophils (%) (Auto) 1.8 % (0.0-3.0) 4.4 % (0.0-3.0) Basophils (%) (Auto) 0.5 % (0.0-2.0) 1.0 % (0.0-2.0) Prothrombin Time 10.7 SEC (9.30-11.50) Prothromb Time International Ratio 1.0 (0.9-1.1) Activated Partial Thromboplast Time 27 SEC (23-33) Sodium Level 134 MMOL/L (136-145) 139 MMOL/L (136-145) Potassium Level 4.7 MMOL/L (3.5-5.1) 4.6 MMOL/L (3.5-5.1) Chloride Level 105 MMOL/L (98-107) 110 MMOL/L (98-107) Carbon Dioxide Level 18 MMOL/L (21-32) 18 MMOL/L (21-32) Anion Gap 11 mmol/L (5-15) 11 mmol/L (5-15) Blood Urea Nitrogen 32 mg/dL (7-18) 27 mg/dL (7-18) Creatinine 1.8 MG/DL (0.55-1.30) 1.4 MG/DL (0.55-1.30) Estimat Glomerular Filtration Rate mL/min (>60) mL/min (>60) Glucose Level 156 MG/DL (74-106) 81 MG/DL (74-106) Lactic Acid Level 1.90 mmol/L (0.4-2.0) Calcium Level 8.5 MG/DL (8.5-10.1) 9.0 MG/DL (8.5-10.1) Phosphorus Level 2.8 MG/DL (2.5-4.9) 3.3 MG/DL (2.5-4.9) Magnesium Level 1.3 MG/DL (1.8-2.4) 2.1 MG/DL (1.8-2.4) Total Bilirubin 0.7 MG/DL (0.2-1.0) 0.5 MG/DL (0.2-1.0) Aspartate Amino Transf (AST/SGOT) 71 U/L (15-37) 45 U/L (15-37) Alanine Aminotransferase (ALT/SGPT) 135 U/L (12-78) 107 U/L (12-78) Alkaline Phosphatase 168 U/L (46-116) 152 U/L (46-116) Total Creatine Kinase 16 U/L (26-308) Creatine Kinase MB 0.5 NG/ML (0.0-3.6) Creatine Kinase MB Relative Index 3.1 Troponin I 0.004 ng/mL (0.000-0.056) 0.011 ng/mL (0.000-0.056) Total Protein 5.9 G/DL (6.4-8.2) 6.1 G/DL (6.4-8.2) Albumin 2.5 G/DL (3.4-5.0) 2.5 G/DL (3.4-5.0) Globulin 3.4 g/dL Albumin/Globulin Ratio 0.7 (1.0-2.7) Urine Color Yellow Urine Appearance Cloudy Urine pH 5 (4.5-8.0) Urine Specific [place] 1.010 (1.005-1.035) Urine Protein 3+ (NEGATIVE) Urine Glucose (UA) Negative (NEGATIVE) Urine Ketones 1+ (NEGATIVE) Urine Blood 1+ (NEGATIVE) Urine Nitrite Negative (NEGATIVE) Urine Bilirubin Negative (NEGATIVE) Urine Urobilinogen Normal MG/DL (0.0-1.0) Urine Leukocyte Esterase 3+ (NEGATIVE) Urine RBC 5-10 /HPF (0 - 0) Urine WBC Tntc /HPF (0 - 0) Urine Squamous Epithelial Cells None /LPF (NONE/OCC) Urine Bacteria Many /HPF (NONE) Differential Total Cells Counted 100 Neutrophils % (Manual) 67 % (45-75) Lymphocytes % (Manual) 21 % (20-45) Monocytes % (Manual) 7 % (1-10) Eosinophils % (Manual) 4 % (0-3) Basophils % (Manual) 1 % (0-2) Band Neutrophils 0 % (0-8) Platelet Estimate Adequate Platelet Morphology Normal Hypochromasia 1+ Anisocytosis 2+ Reticulocyte Count 3.3 % (0.5-2.0) Hemoglobin A1c 5.1 % (4.3-6.0) Uric Acid 6.8 MG/DL (2.6-7.2) Direct Bilirubin 0.1 MG/DL (0.0-0.3) Gamma Glutamyl Transpeptidase 407 U/L (5-85) Ammonia 35 umol/L (11-32) C-Reactive Protein, Quantitative 8.1 mg/dL (0.00-0.90) Pro-B-Type Natriuretic Peptide 824 pg/mL (0-125) Triglycerides Level 128 MG/DL (30-150) Cholesterol Level 142 MG/DL (< 200) LDL Cholesterol 75 mg/dL (<100) HDL Cholesterol 41 MG/DL (40-60) Cholesterol/HDL Ratio 3.5 (3.3-4.4) Prostate Specific Antigen < 0.10 ng/mL (0.13-4.0) Thyroid Stimulating Hormone (TSH) 0.462 uiU/mL (0.358-3.740) Urine Eosinophils None seen (NONE SEEN) Urine Random Sodium 125 mmol/L (20-110) Test 06/30/19 11:20 06/30/19 19:05 07/01/19 03:00 07/01/19 05:15 Iron Level 17 ug/dL (50-175) Total Iron Binding Capacity 175 ug/dL (250-450) Percent Iron Saturation 10 % (15-50) Unsaturated Iron Binding 158 ug/dL (112-346) Ferritin 155 NG/ML (8-388) Lactate Dehydrogenase 128 U/L (81-234) Troponin I 0.000 ng/mL (0.000-0.056) 0.000 ng/mL (0.000-0.056) White Blood Count 9.4 K/UL (4.8-10.8) Red Blood Count 4.20 M/UL (4.70-6.10) Hemoglobin 11.8 G/DL (14.2-18.0) Hematocrit 35.8 % (42.0-52.0) Mean Corpuscular Volume 85 FL (80-99) Mean Corpuscular Hemoglobin 28.0 PG (27.0-31.0) Mean Corpuscular Hemoglobin Concent 32.8 G/DL (32.0-36.0) Red Cell Distribution Width 17.9 % (11.6-14.8) Platelet Count 242 K/UL (150-450) Mean Platelet Volume 6.4 FL (6.5-10.1) Neutrophils (%) (Auto) 61.5 % (45.0-75.0) Lymphocytes (%) (Auto) 23.1 % (20.0-45.0) Monocytes (%) (Auto) 9.4 % (1.0-10.0) Eosinophils (%) (Auto) 4.6 % (0.0-3.0) Basophils (%) (Auto) 1.4 % (0.0-2.0) Sodium Level 139 MMOL/L (136-145) Potassium Level 4.9 MMOL/L (3.5-5.1) Chloride Level 107 MMOL/L (98-107) Carbon Dioxide Level 21 MMOL/L (21-32) Anion Gap 11 mmol/L (5-15) Blood Urea Nitrogen 16 mg/dL (7-18) Creatinine 1.1 MG/DL (0.55-1.30) Estimat Glomerular Filtration Rate mL/min (>60) Glucose Level 136 MG/DL (74-106) Calcium Level 8.9 MG/DL (8.5-10.1) Total Bilirubin 0.3 MG/DL (0.2-1.0) Aspartate Amino Transf (AST/SGOT) 55 U/L (15-37) Alanine Aminotransferase (ALT/SGPT) 109 U/L (12-78) Alkaline Phosphatase 186 U/L (46-116) Total Protein 6.2 G/DL (6.4-8.2) Albumin 2.7 G/DL (3.4-5.0) Globulin 3.5 g/dL Albumin/Globulin Ratio 0.8 (1.0-2.7) Urine Eosinophils None seen (NONE SEEN) Height (Feet): 5 Height (Inches): 5.00 Weight (Pounds): 142 Objective General: Awake and alert, no acute distress HEENT: NC/AT. EOMI. Neck: Supple, trachea midline Chest Wall: No tenderness, no deformity Cardiovascular: RRR. S1 and S2 normal. No murmur appreciated Resp: Normal work of breathing Abdomen: Abdomen is soft, nd, nt, Laparotomy scars++ : Peterson in place with no output Skin: Intact. No abrasions, laceration or rash over the exposed skin MSK: Normal tone and bulk. Moving all extremities Neuro: Awake and alert. Mentating appropriately Eduardo Galeano MD Jul 01, 2019 08:56
[2019-07-01] MEDS ORDERED: CYCLOSPORINE 25 MG ORAL SCH (09:00)
[2019-07-01] MEDS ORDERED: Sucralfate 1gm tab ORAL SCH (09:00)
[2019-07-01] MEDS ORDERED: BUMETANIDE 0.5 MG ORAL SCH (09:00)
[2019-07-01] MEDS ORDERED: Aspirin EC 81mg tab ORAL SCH (09:00)
[2019-07-01] MEDS ORDERED: Imdur 30mg tab ORAL SCH (09:00)
[2019-07-01] MEDS ORDERED: Bumetanide 1mg tab ORAL SCH (09:00)
[2019-07-01] MEDS ORDERED: Docusate 100mg cap ORAL SCH (09:00)
[2019-07-01] MEDS ORDERED: cycloSPORINE 25mg cap ORAL SCH (09:15)
[2019-07-01] MEDS: Aspirin Baby 81mg ORAL SCH (09:28)
[2019-07-01] MEDS: D5NS 1,000 ML IV SCH (09:28)
[2019-07-01] MEDS: Eliquis 2.5mg tablet ORAL SCH (09:30)
[2019-07-01] MEDS: Metoprolol Tartrate 50mg tab ORAL SCH (09:30)
--- NOTE | 2019-07-01 09:55 | NUR ---
NURSE NOTES: Per patient's and daughter, may proceed with CT of Neck with IV contrast. Patient is alert and oriented x 4, patient signed consent form okay to use IV contrast. Consent is placed in chart. Noted. Will continue to monitor patient.
--- NOTE | 2019-07-01 10:48 | GI Progress Note ---
Assessment/Plan Problems: (1) DM2 (diabetes mellitus, type 2) ICD Codes: E11.9 - Type 2 diabetes mellitus without complications SNOMED: 64638823 (2) Esophageal cancer ICD Codes: C15.9 - Malignant neoplasm of esophagus, unspecified SNOMED: 065013906 (3) Anemia of chronic disease ICD Codes: D63.8 - Anemia in other chronic diseases classified elsewhere SNOMED: 676730662 (4) Altered level of consciousness ICD Codes: R40.4 - Transient alteration of awareness SNOMED: 0484479 Status: stable Status Narrative Discussed with Dr. Lopez. Assessment/Plan Recent diagnosis of esophageal cancer, pt reported that he was scheduled for endoscopy and surgery at [facility] [place]. No GI procedures planned at this time. Symptomatic treatment Pain management Zofran as needed Advance diet as tolerated Antibiotics Follow labs, hepatitis panel abdominal US reviewed. The patient was seen and examined at bedside and all new and available data was reviewed in the patients chart. I agree with the above findings, impression and plan. (Patient seen earlier today. Signature stamp does not reflect patient encounter time.). - Matt Lopez MD Subjective Gastrointestinal/Abdominal: Reports: no symptoms Objective Last 24 Hour Vital Signs Date Time Temp Pulse Resp B/P (MAP) Pulse Ox O2 Delivery O2 Flow Rate FiO2 07/01/19 09:38 157/68 07/01/19 09:30 64 157/68 07/01/19 09:29 64 157/68 07/01/19 08:00 66 07/01/19 08:00 Room Air 07/01/19 07:52 99.3 64 20 157/68 (97) 97 07/01/19 06:16 162/78 07/01/19 04:00 Room Air 07/01/19 04:00 52 07/01/19 04:00 98.1 52 20 158/72 (100) 98 07/01/19 01:35 70 155/60 (91) 07/01/19 00:48 171/73 07/01/19 00:00 98.1 55 18 178/76 (110) 98 07/01/19 00:00 55 07/01/19 00:00 Room Air 06/30/19 21:16 172/75 06/30/19 21:16 77 172/75 06/30/19 20:00 99.2 73 18 172/75 (107) 99 06/30/19 20:00 77 06/30/19 20:00 Room Air 06/30/19 16:02 98.1 68 16 157/77 (103) 98 06/30/19 16:00 Room Air 06/30/19 16:00 78 06/30/19 12:00 98.1 68 18 136/71 (92) 97 06/30/19 12:00 74 06/30/19 12:00 Room Air Intake and Output 06/30/19 07/01/19 19:00 07:00 Intake Total 1143 ml 870 ml Output Total 3300 ml 3300 ml Balance -2157 ml -2430 ml Intake Oral 300 ml 120 ml IV Total 843 ml 750 ml Output Urine Total 3300 ml 3300 ml # Bowel Movements 1 Laboratory Tests Test 06/30/19 11:20 06/30/19 19:05 07/01/19 03:00 07/01/19 05:15 Iron Level 17 ug/dL (50-175) L Total Iron Binding Capacity 175 ug/dL (250-450) L Percent Iron Saturation 10 % (15-50) L Unsaturated Iron Binding 158 ug/dL (112-346) Ferritin 155 NG/ML (8-388) Lactate Dehydrogenase 128 U/L (81-234) Troponin I 0.000 ng/mL (0.000-0.056) 0.000 ng/mL (0.000-0.056) White Blood Count 9.4 K/UL (4.8-10.8) Red Blood Count 4.20 M/UL (4.70-6.10) L Hemoglobin 11.8 G/DL (14.2-18.0) L Hematocrit 35.8 % (42.0-52.0) L Mean Corpuscular Volume 85 FL (80-99) Mean Corpuscular Hemoglobin 28.0 PG (27.0-31.0) Mean Corpuscular Hemoglobin Concent 32.8 G/DL (32.0-36.0) Red Cell Distribution Width 17.9 % (11.6-14.8) H Platelet Count 242 K/UL (150-450) Mean Platelet Volume 6.4 FL (6.5-10.1) L Neutrophils (%) (Auto) 61.5 % (45.0-75.0) Lymphocytes (%) (Auto) 23.1 % (20.0-45.0) Monocytes (%) (Auto) 9.4 % (1.0-10.0) Eosinophils (%) (Auto) 4.6 % (0.0-3.0) H Basophils (%) (Auto) 1.4 % (0.0-2.0) Sodium Level 139 MMOL/L (136-145) Potassium Level 4.9 MMOL/L (3.5-5.1) Chloride Level 107 MMOL/L (98-107) Carbon Dioxide Level 21 MMOL/L (21-32) Anion Gap 11 mmol/L (5-15) Blood Urea Nitrogen 16 mg/dL (7-18) Creatinine 1.1 MG/DL (0.55-1.30) Estimat Glomerular Filtration Rate mL/min (>60) Glucose Level 136 MG/DL (74-106) H Calcium Level 8.9 MG/DL (8.5-10.1) Total Bilirubin 0.3 MG/DL (0.2-1.0) Aspartate Amino Transf (AST/SGOT) 55 U/L (15-37) H Alanine Aminotransferase (ALT/SGPT) 109 U/L (12-78) H Alkaline Phosphatase 186 U/L (46-116) H Total Protein 6.2 G/DL (6.4-8.2) L Albumin 2.7 G/DL (3.4-5.0) L Globulin 3.5 g/dL Albumin/Globulin Ratio 0.8 (1.0-2.7) L Hepatitis A IgM Antibody Pending Hepatitis B Surface Antigen Pending Hepatitis B Core IgM Antibody Pending Hepatitis C Antibody Pending Urine Eosinophils None seen (NONE SEEN) Height (Feet): 5 Height (Inches): 5.00 Weight (Pounds): 142 General Appearance: WD/WN, no apparent distress, alert Cardiovascular: normal rate Respiratory/Chest: normal breath sounds, no respiratory distress Abdominal Exam: normal bowel sounds, non tender, soft Extremities: non-tender Ken Gunn NP Jul 01, 2019 10:48
--- NOTE | 2019-07-01 10:55 | NUR ---
CT NECK WITH COMPLETED.
--- NOTE | 2019-07-01 11:03 | NUR ---
NURSE NOTES: Dr. Orellana seen and examined patient at bedside, ordered to transfer patient to Telemetry unit. Order entered, noted, and carried out. Will continue to monitor patient.
[2019-07-01] MEDS ORDERED: CIPROFLOXACIN500 M2 ORAL (11:42)
--- NOTE | 2019-07-01 11:59 | NUR ---
NURSE NOTES: Dr. Orellana at nurse station made aware that per microbiology lab, patient has 1 bottle of blood culture positive for gram positive cocci in clusters, Dr. Orellana acknowledged, Dr. Orellana spoke with Dr. Parker regarding situation. Per Dr. Orellana okay to proceed with discharge, Dr. Orellana will speak with patient's son. Charge nurse made aware. Noted. Will continue to monitor patient.
[2019-07-01 12:00] VITALS: BP 140/66
--- NOTE | 2019-07-01 12:36 | NUR ---
NURSE NOTES: Dr. Tang seen and examined patient at bedside. Per Dr. Tang, patient will go home with peterson catheter. Noted. Charge nurse aware.
--- NOTE | 2019-07-01 12:54 | Discharge Summary ---
Discharge Summary Hospital Course Date of Admission Jun 29, 2019 at 15:48 Date of Discharge 07/01/19 Admitting Diagnosis sepsis HPI Fidencio Munoz is a 74 year old male who was admitted on Jun 29, 2019 at 15:48 for Sepsis 2/2 UTI Hospital Course 74 yo M with PMH of recently dx esophageal CA (Pending EGD and surgery at [facility]), HTN, hypothyroidism, RUE DVT (on eliquis), ESRD s/p transplant on immunosuppressants, ACD, DM2, urinary retention s/p recent peterson placement admitted for sepsis 2/2 UTI. #Sepsis 2/2 pseudomonas UTI #Urinary retention s/p chronic peterson placement #Hx of recurrent UTI, recently on Zosyn -Cont Meropenem changed to Ciprofloxacin - will be discharged on 500mg BID x 5 days -f/u cultures - soto sensitive -Blood cultures 1 bottle positive for gram + cocci, likely contaminant, discussed with Son, Loy ([phone]) (family doctor), states will contact him if final cultures are concerning for recall back to hospital, Son agrees with plan. #Hx of ESRD s/p renal transplant #MALGORZATA - resolved -cont immunosuppressants -Avoid nephrotoxic medications #Esophageal CA - dx 1.5 months ago -Plan for EGD and surgery at [facility] - follow up at [facility] #RUE DVT -Cont eliquis #Anemia of chronic dx #HTN -Cont home meds #DM -cont carb controlled diet Code: channel installer of note may not reflect time of encounter Discharge Medications New Medications: Ciprofloxacin Hcl* (Ciprofloxacin Hcl*) 500 Mg Tablet 500 MG ORAL Q12H PRN for 5 Days, #10 TAB 0 Refills Continued Medications: Acetaminophen (Acetaminophen) 500 Mg Tablet 1000 MG ORAL Q8HR for PAIN, TAB (This prescription has been renewed) Apixaban (Eliquis) 2.5 Mg Tablet 2.5 MG PO BID, TAB (This prescription has been renewed) Aspirin* (Aspir 81*) 81 Mg Tablet.dr 81 MG ORAL DAILY, TAB Atorvastatin Calcium* (Lipitor*) 10 Mg Tablet 10 MG ORAL BEDTIME, TAB (This prescription has been renewed) Bumetanide* (Bumetanide*) 0.5 Mg Tablet 0.5 MG ORAL MORNING, TAB Cyclosporine (Cyclosporine) 25 Mg Capsule 50 MG PO BID, CAP (This prescription has been renewed) Docusate Sodium* (Colace*) 100 Mg Capsule 100 MG ORAL TWICE A DAY, CAP (This prescription has been renewed) Epoetin Rene (Procrit) 10,000 Unit/1 Ml Vial 43423 UNIT SUBQ 2XW PRN for Other, VIAL (This prescription has been renewed) Hydralazine Hcl* (Hydralazine Hcl*) 100 Mg Tablet 100 MG ORAL EVERY 8 HOURS, TAB (This prescription has been renewed) Hydrocodone Bit/Acetaminophen 10-325* ([place] 10-325*) 1 Each Tablet 1 TAB ORAL Q4H PRN for For Pain, TAB 0 Refills (This prescription has been renewed) PRN PAIN Insulin Aspart (Novolog) 100 Unit/1 Ml Cartridge 100 UNIT SQ PRN for HYPOGLYCEMIA Insulin Glargine,Hum.rec.anlog ([place]je[place] Solostar) 300 Unit/1 Ml Insuln.pen 40 UNIT SQ DAILY, EA (This prescription has been renewed) Isosorbide Mononitrate (Isosorbide Mononitrate Er) 60 Mg Tab.er.24h 60 MG PO DAILY, TAB (This prescription has been renewed) Levothyroxine Sodium* (Levoxyl*) 112 Mcg Tablet 112 MCG ORAL DAILY, TAB (This prescription has been renewed) Take in the morning on an empty stomach, at least 30 minutes before food. Losartan Potassium* (Losartan Potassium*) 25 Mg Tablet 25 MG ORAL DAILY, TAB (This prescription has been renewed) Methocarbamol* (Methocarbamol*) 500 Mg Tablet 250 MG ORAL TID PRN for For Pain, #15 TAB 0 Refills (This prescription has been renewed) Metoclopramide Hcl* (Metoclopramide Hcl*) 5 Mg Tablet 5 MG ORAL TID, TAB Metoprolol Tartrate* (Metoprolol Tartrate*) 50 Mg Tablet 50 MG ORAL EVERY 12 HOURS, TAB (This prescription has been renewed) Multivitamin (Multivitamins) 1 Each Tablet 1 EACH PO, TAB (This prescription has been renewed) Nifedipine Xl* (Procardia Xl*) 90 Mg Tab.er.24 90 MG ORAL DAILY, TAB (This prescription has been renewed) Ondansetron* (Zofran*) 4 Mg Tablet 4 MG ORAL Q8HR PRN for Nausea & Vomiting, TAB (This prescription has been renewed) Pantoprazole* (Pantoprazole*) 40 Mg Tablet.dr 40 MG ORAL DAILY, TAB (This prescription has been renewed) Prednisone (Prednisone) 5 Mg Tablet 5 MG PO, TAB (This prescription has been renewed) Sennosides (Senna) 8.6 Mg Tablet 2 TAB PO BID, TAB (This prescription has been renewed) Sucralfate* (Carafate*) 1 Gm Tablet 1 GM ORAL AC, TAB Tamsulosin Hcl (Tamsulosin Hcl*) 0.4 Mg Cap.er.24h 0.8 MG ORAL BEDTIME, CAP Tramadol Hcl* (Ultram*) 50 Mg Tablet 100 MG ORAL Q6H PRN for For Pain, #12 TAB 0 Refills (This prescription has been renewed) Discontinued Medications: Ticagrelor* (Brilinta*) 90 Mg Tablet 90 MG PO BID PRN for other, TAB Discharge Condition Upon Discharge: improving Discharge Disposition Patient was discharged to home with home health (son states he will resume care himself) Discharge Diagnoses: (1) H/O: CVA (cerebrovascular accident) (2) ESRD s/p kidney transplant (3) Lactic acid acidosis (4) Sepsis (5) MALGORZATA (acute kidney injury) Italia Orellana MD Jul 01, 2019 12:54
[2019-07-01] MEDS ORDERED: Tubing IV Secondary IV ONE (13:19)
[2019-07-01] MEDS ORDERED: D5NS 1000ml IV ONE (13:19)
--- NOTE | 2019-07-01 13:48 | NUR ---
NURSE NOTES: Patient discharged to home per Dr. Orellana. Patient and patient's daughter given discharge instructions, patient and patient's daughter verbalized understanding. Prescription slip given to daughter. IV accesses removed and no active bleeding noted, heart monitor removed and returned to youth nutritional monitor, ID band removed and placed in shredder. Patient left with daughter in private vehicle, with all belongings and in stable condition. Noted.
--- NOTE | 2019-07-01 14:44 | Diagnostic Imaging Report ---
Indication: History esophageal cancer; for staging of such Technique: IV administration nonionic contrast. Spiral acquisitions obtained through the neck. Multiplanar reconstructions were generated. Total dose length product 567.63 mGycm. CTDIvol(s) 19.21 mGy. Dose reduction achieved using automated exposure control Comparison: none Findings: included lungs demonstrate scattered areas of subpleural reticular opacity in the right upper lobe and apex. There is some linear scarring versus atelectasis in the left upper lobe posteromedially. No cervical mass or adenopathy. No supraclavicular mass or adenopathy demonstrated. The nasopharynx, oropharynx, hypopharynx, larynx, and trachea are all unremarkable. The included proximal esophagus is unremarkable. The included upper mediastinum is unremarkable. The thyroid is unremarkable. There is evidence of prior bilateral cataract surgery. The included orbits are otherwise unremarkable. The included intracranial structures are unremarkable. The injection demonstrates evidence of multiple prior dental procedures as well as multiple prior tooth extractions. The visualized sinuses are clear. There is bilateral mastoid disease demonstrated. There are mild degenerative changes of the cervical spine noted. Impression: No evidence of disseminated esophageal malignancy within the neck Minimal chronic appearing pulmonary parenchymal changes, as described Incidental finding of degenerative spondylosis The CT scanner at [facility] is accredited by the [employer] and the scans are performed using protocols designed to limit radiation exposure to as low as reasonably achievable to attain images of sufficient resolution adequate for diagnostic evaluation.
--- NOTE | 2019-07-01 17:15 | Consultation ---
DATE OF CONSULTATION: 06/30/2019 CONSULTING PHYSICIAN: Dallas Duran M.D. HISTORY OF PRESENT ILLNESS: This is a 74-year-old male with a history of multiple medical comorbidities, which include diagnosis of cancer, hypertension, hypothyroidism, DVT, ESRD, diabetes mellitus, Parker placement, weakness, cognitive impairment, who was admitted to the hospital due to recurrent UTIs, secondary to urinary retention. The patient also has severe weakness and confusion during the evaluation. The patient was evaluated yesterday. The patient presents with waxing and waning of consciousness, was unable to provide history and has cognitive impairment, episodes of agitation. Dr. Orellana asked me to see the patient for agitation and altered mental status. PAST PSYCHIATRIC HISTORY: He has a history of encephalopathy due to underlying medical condition. No known depression or anxiety. No suicide attempt. PAST MEDICAL HISTORY: As above. ALLERGIES: Azathioprine. SUBSTANCE ABUSE HISTORY: No known history of illicit drug use or alcohol. MENTAL STATUS EXAMINATION: The patient has waxing and waning consciousness. More alert on 06/30/2019. Mood is neutral to anxious. Affect is flat. Thought process, concrete. Thought content, no suicidal or homicidal ideation. Memory, concentration, and attention is impaired. ASSESSMENT: [place] I Acute toxic encephalopathy. [place] II Deferred. [place] III Recurrent UTI. History of renal failure. [place] IV Low. [place] V 20. PLAN: antipsychotics encephalopathy and agitation. We will continue to follow and readjust the medications. Dallas Duran M.D. DR: GARETH JOB#: [id number] CC: ROBERTA
--- NOTE | 2019-07-02 04:00 | Progress Note ---
DATE: 07/01/2019 SUBJECTIVE: The patient is still in 2-level step down. No behavior issues. MENTAL STATUS EXAMINATION: The patient is alert and oriented times self and place. Mood is dysphoric. Affect is constricted, congruent with mood. Thought process is concrete. Thought content, no suicidal or homicidal ideation. ASSESSMENT: Acute encephalopathy. PLAN: 1. We will continue current medications. 2. Provide the patient with reality orientation and supportive therapy. Dallas Duran M.D. DR: JONNIE JOB#: [id number] CC:
== END 2019-07-01 13:20 | disposition home or self-care (01) | DRG 871 ==
LOC: EDBD 14:04 → EMR 15:31 → 2W 15:48 → EDBEDREQ 16:11 → 2W 17:09
DX: A41.9 Sepsis, unspecified organism (principal); G92 Toxic encephalopathy; N18.6 End stage renal disease; N17.9 Acute kidney failure, unspecified; C15.9 Malignant neoplasm of esophagus, unspecified; N39.0 Urinary tract infection, site not specified; Z94.0 Kidney transplant status; I82.501 Chronic embolism and thrombosis of unspecified deep veins of right lower extremity; I12.0 Hypertensive chronic kidney disease with stage 5 chronic kidney disease or end stage renal disease; Z79.01 Long term (current) use of anticoagulants; D63.8 Anemia in other chronic diseases classified elsewhere; E11.22 Type 2 diabetes mellitus with diabetic chronic kidney disease; Z86.73 Personal history of transient ischemic attack (TIA), and cerebral infarction without residual deficits; I25.10 Atherosclerotic heart disease of native coronary artery without angina pectoris; Z95.5 Presence of coronary angioplasty implant and graft; N40.1 Benign prostatic hyperplasia with lower urinary tract symptoms; R33.8 Other retention of urine; E78.5 Hyperlipidemia, unspecified; Z79.82 Long term (current) use of aspirin; Z79.4 Long term (current) use of insulin; F03.90 Unspecified dementia, unspecified severity, without behavioral disturbance, psychotic disturbance, mood disturbance, and anxiety; N31.9 Neuromuscular dysfunction of bladder, unspecified
CPT/HCPCS: 36415; 70491; 71045; 76700; 80048; 80053; 80061; 80076; 81003; 82140; 82550; 82553; 82728; 82962; 82977; 83036; 83540; 83550; 83605; 83615; 83735; 83880; 84100; 84153; 84300; 84443; 84484; 84550; 85007; 85025; 85044; 85060; 85610; 85730; 86140; 86705; 86709; 86803; 87040; 87081; 87086; 87181; 87340; 89050; 92610; 93005; 93306; 93970; 96361; 96365; 96372; 99285; J1815